=== PATIENT | male | born 1975 | race Two or more races ===

== ENCOUNTER 2017-07-25 10:45 | Emergency (ER) | payer MEDICARE, OTHER ==
[~2017-07-25] VITALS: Ht 160 cm; Wt 63.5 kg
[2017-07-25 11:30] LABS: Basophils # (auto) 0.1 uL; Eosinophils # (auto) 0.1 uL; Eosinophils % (auto) 1.8 % (0.0-7.0); Hematocrit 40.4 % (41.0-53.0); Hemoglobin 13.2 g/dL (13.5-17.5); Lymphocytes # (auto) 0.5 uL; Lymphocytes % (auto) 9.8 % (10.0-50.0); Mean Corpuscular Hemoglobin 27.2 pg (28.0-32.0); Mean Corpuscular Hgb Conc. 32.7 g/dL (32.0-36.0); Mean Corpuscular Volume 83.2 fL (80.0-100.0); Monocytes # (auto) 0.9 uL; Neutrophils # (auto) 3.8 uL; Neutrophils % (auto) 71.4 % (37.0-80.0); Nucleated Red Blood Cells % 0.2 %; Platelet Count (auto) 336 10^3/uL (140-450); Red Blood Cells 4.85 10^6/uL (4.5-5.90); Red Cell Distribution Width 17.3 % (11.8-14.3); White Blood Cell 5.3 10^3/uL (4.4-10.8)
[2017-07-25 11:49] LABS: Albumin 4.6 g/dL (3.4-5.0); BUN/Creatinine Ratio 10.6; Bilirubin, Total 0.7 mg/dL (0.2-1.0); Calcium 9.4 mg/dL (8.5-10.1); Potassium 3.6 mmol/L (3.5-5.1)
[2017-07-25 12:59] LABS: Urine Bacteria NONE SEEN /hpf (None Seen); Urine Blood Negative /uL (Negative); Urine Mucus FEW (None Seen); Urine Specific Gravity 1.017 (1.001-1.035); Urine WBC 1 /hpf (0 - 3)
[2017-07-25] MEDS ORDERED: ONDANSETRON HCL 4 MG/2 ML VIAL IV ONE (16:45)
[2017-07-25] MEDS ORDERED: NALBUPHINE HCL 10 MG/1ml INJECTION IV ONE (16:45)
[2017-07-25 17:28] VITALS: BP 134/87
== END 2017-07-25 17:32 | disposition home or self-care (01) ==
LOC: ER 10:45
DX: E11.43 Type 2 diabetes mellitus with diabetic autonomic (poly)neuropathy (principal); K31.84 Gastroparesis; G89.29 Other chronic pain; R10.13 Epigastric pain; I25.2 Old myocardial infarction; Z86.73 Personal history of transient ischemic attack (TIA), and cerebral infarction without residual deficits; Z94.83 Pancreas transplant status
CPT/HCPCS: 36415; 71046; 74176; 80053; 81001; 82150; 83690; 84484; 85025; 93005; 96374; 96375; 99285; J2300; J2405

== ENCOUNTER 2017-08-04 19:14 | Emergency (ER) | payer MEDICARE, OTHER ==
[~2017-08-04] VITALS: Ht 160 cm; Wt 63.5 kg
[2017-08-04 21:13] LABS: Hematocrit 40.8 % (41.0-53.0); Hemoglobin 13.2 g/dL (13.5-17.5); Mean Corpuscular Hgb Conc. 32.4 g/dL (32.0-36.0); Mean Corpuscular Volume 83.3 fL (80.0-100.0); Platelet Count (auto) 346 10^3/uL (140-450); Red Blood Cells 4.89 10^6/uL (4.5-5.90); Red Cell Distribution Width 16.1 % (11.8-14.3); White Blood Cell 4.6 10^3/uL (4.4-10.8)
[2017-08-04 21:16] LABS: Basophils % (manual) 0 (0.0-2.0); Blast Cells 0; Metamyelocytes % 0; Myelocytes % 0; Promyelocytes % 0; Reactive Lymphocytes 0
[2017-08-04 21:34] LABS: Albumin 4.2 g/dL (3.4-5.0); BUN/Creatinine Ratio 9.3; Bilirubin, Total 0.3 mg/dL (0.2-1.0); Calcium 9.2 mg/dL (8.5-10.1); Potassium 4.2 mmol/L (3.5-5.1); Total Protein 7.7 g/dL (6.4-8.2)
[2017-08-04 22:44] LABS: INR 0.97 (0.9-1.15); Partial Thromboplastin Time 26.6 sec (22.64-33.71); Prothrombin Time 10.6 sec (9.37-12.3)
[2017-08-04 23:08] LABS: Band Neutrophils % (manual) 5; Eosinophils % (manual) 5 (0-7); Lymphocytes % (manual) 3 (10.0-50.0); Monocytes % (manual) 29 (0-12)
[2017-08-05] MEDS ORDERED: ALBUTEROL SULF 2.5 MG/0.5ML(0.5%) NEB SOLN NEB ONE (02:45)
[2017-08-05] MEDS ORDERED: IPRATROPIUM BROM 0.5 MG/2.5ML INH SOL NEB ONE (02:45)
[2017-08-05] MEDS ORDERED: methylPREDNISolone SOD SUCC 125 MG/2 ML VL ONE (02:55)
[2017-08-05] MEDS ORDERED: methylPREDNISolone SOD SUCC 125 MG/2 ML VL IV ONE (03:00)
[2017-08-05 03:12] VITALS: BP 141/84
[2017-08-05] MEDS ORDERED: cefTRIAXone 1GM/10ml IVPUSH 10 ML IV ONE ×2 (05:12→05:15)
== END 2017-08-05 05:38 | disposition home or self-care (01) ==
LOC: ER 19:14
DX: J45.909 Unspecified asthma, uncomplicated (principal); R53.1 Weakness; I25.2 Old myocardial infarction; Z86.73 Personal history of transient ischemic attack (TIA), and cerebral infarction without residual deficits
CPT/HCPCS: 36415; 71046; 80053; 85007; 85027; 85610; 85730; 87804; 94640; 96374; 96375; 99285; J2930; 87400

== ENCOUNTER 2017-08-11 02:09 | Inpatient (IN) | payer MEDICARE ==
[~2017-08-11] VITALS: Ht 160 cm; Wt 65.0 kg
[2017-08-11 03:02] LABS: Basophils # (auto) 0.1 uL; Basophils % (auto) 0.9 % (0.0-2.0); Eosinophils # (auto) 0.1 uL; Eosinophils % (auto) 0.7 % (0.0-7.0); Hematocrit 38.7 % (41.0-53.0); Hemoglobin 12.5 g/dL (13.5-17.5); Lymphocytes # (auto) 0.7 uL; Lymphocytes % (auto) 5.8 % (10.0-50.0); Mean Corpuscular Hemoglobin 26.5 pg (28.0-32.0); Mean Corpuscular Hgb Conc. 32.3 g/dL (32.0-36.0); Mean Corpuscular Volume 82.1 fL (80.0-100.0); Monocytes % (auto) 8.2 % (0.0-12.0); Neutrophils % (auto) 84.4 % (37.0-80.0); Nucleated Red Blood Cells % 0.1 %; Platelet Count (auto) 343 10^3/uL (140-450); Red Blood Cells 4.72 10^6/uL (4.5-5.90); Red Cell Distribution Width 16.1 % (11.8-14.3); White Blood Cell 11.9 10^3/uL (4.4-10.8)
[2017-08-11] MEDS ORDERED: ALBUTEROL SULF 2.5 MG/0.5ML(0.5%) NEB SOLN NEB ONE (03:15)
[2017-08-11] MEDS ORDERED: IPRATROPIUM BROM 0.5 MG/2.5ML INH SOL NEB ONE (03:15)
[2017-08-11 03:18] LABS: Alanine Aminotransferase 29 U/L (16-61); Albumin 3.4 g/dL (3.4-5.0); Anion Gap 10 (5-15); Aspartate Aminotransferase 34 U/L (15-37); BUN/Creatinine Ratio 16.7; Blood Urea Nitrogen 24 mg/dL (7-18); Calcium 8.5 mg/dL (8.5-10.1); Carbon Dioxide 23 mmol/L (21-32); Chloride 108 mmol/L (98-107); GFR African American 70 mL/min; GFR Non-African American 58 mL/min; Glucose 163 mg/dL (74-106); Sodium 141 mmol/L (136-145)
[2017-08-11 03:23] LABS: Alkaline Phosphatase 70 U/L (45-117); Bilirubin, Total 0.2 mg/dL (0.2-1.0); Total Protein 6.5 g/dL (6.4-8.2)
[2017-08-11] MEDS ORDERED: methylPREDNISolone SOD SUCC 125 MG/2 ML VL IV ONE (07:15)
[2017-08-11] MEDS ORDERED: LORazepam 0.5 MG TAB PO ONE (07:45)
[2017-08-11 08:04] LABS: Urine Bacteria NONE SEEN /hpf (None Seen); Urine Blood Negative /uL (Negative); Urine Specific Gravity 1.017 (1.001-1.035); Urine WBC <1 /hpf (0 - 3)
[2017-08-11 08:24] LABS: Alcohol, Urine < 3.0 mg/dL (0-5); Amphetamine Screen, Urine NEGATIVE (NEGATIVE); Barbiturate Scree,Urine NEGATIVE (NEGATIVE); Benzodiazephine Screen, Urine NEGATIVE (NEGATIVE); Cannabinoid Screen, Urine POSITIVE (NEGATIVE); Cocaine Screen, Urine NEGATIVE (NEGATIVE); Opiate Scree,Urine NEGATIVE (NEGATIVE); Phencyclidine Screen, Urine NEGATIVE (NEGATIVE)
[2017-08-11] MEDS ORDERED: [UNRECOGNIZED DRUG - REMARK] PO SCH (09:41)
[2017-08-11] MEDS ORDERED: cefTRIAXone 1GM/10ml IVPUSH 10 ML IV ONE (09:45)
[2017-08-11] MEDS ORDERED: SODIUM CHLORIDE 0.9% 1,000 ML IV SCH (09:45)
[2017-08-11] MEDS ORDERED: PRAV20TA3 PO (09:58)
[2017-08-11] MEDS ORDERED: ALPR1TAB2 PO (09:58)
[2017-08-11] MEDS ORDERED: FLUT50SP28 (09:58)
[2017-08-11] MEDS ORDERED: PRE5T PO (09:58)
[2017-08-11] MEDS ORDERED: GEMF600T3 PO (09:58)
[2017-08-11] MEDS ORDERED: PRO10T GT (09:58)
[2017-08-11] MEDS ORDERED: BELLELX2 GT (09:58)
[2017-08-11] MEDS ORDERED: MONT5CHW17 PO (09:58)
[2017-08-11] MEDS ORDERED: TACR0.5C3 PO (09:58)
[2017-08-11] MEDS ORDERED: PANT40TA2 PO (09:58)
[2017-08-11] MEDS ORDERED: MET10LQ PO (09:58)
[2017-08-11] MEDS ORDERED: ASPI-231 PO (09:58)
[2017-08-11] MEDS ORDERED: FLUC200T50 PO (09:58)
[2017-08-11] MEDS ORDERED: NITR0.4S29 SL (09:58)
[2017-08-11] MEDS ORDERED: ONDA8TAB6 SL (09:58)
[2017-08-11] MEDS ORDERED: SIRO1POW XX (09:58)
[2017-08-11] MEDS ORDERED: CLID5CAP PO (09:58)
[2017-08-11] MEDS ORDERED: FEXO-42 PO (09:58)
[2017-08-11] MEDS ORDERED: TACR1CAP4 PO (09:58)
[2017-08-11] MEDS ORDERED: [UNRECOGNIZED DRUG - CODE] PO (09:58)
[2017-08-11] MEDS ORDERED: QUET50TA PO (09:58)
[2017-08-11] MEDS ORDERED: MIRT15TA3 PO (09:58)
[2017-08-11] MEDS ORDERED: PRO20T PO (09:58)
[2017-08-11] MEDS ORDERED: ALBUAER3 IN (09:58)
[2017-08-11] MEDS ORDERED: FINA5TAB4 PO (09:58)
[2017-08-11] MEDS ORDERED: TAM04C PO (09:58)
[2017-08-11] MEDS ORDERED: GABAPENTIN ENACARBIL 600 MG PO SCH (10:00)
[2017-08-11] MEDS ORDERED: PATIENTS OWN MEDICATION (Montelukast Sodium (Singulair) 10 MG) PO SCH (10:00)
[2017-08-11] MEDS: AZITHROMYCIN 500MG/ 250ML 250 ML IV SCH (10:00)
[2017-08-11 10:44] LABS: Cholesterol 215 mg/dL (< 200); HDL Cholesterol 97 mg/dL (40-59); LDL Cholesterol 90 mg/dL (< 100); Triglycerides 182 mg/dL (< 150)
[2017-08-11] MEDS: FINASTERIDE 5 MG TAB PO SCH (11:22)
[2017-08-11] MEDS: PANTOPRAZOLE 40 MG TAB PO SCH ×2 (11:24→21:17)
[2017-08-11] MEDS: MONTELUKAST SODIUM 10 MG TAB PO SCH (11:24)
[2017-08-11] MEDS: GEMFIBROZIL 600 MG TAB PO SCH ×2 (11:24→21:17)
[2017-08-11] MEDS: PROPRANOLOL HCL 20 MG TAB PO SCH ×2 (11:24→21:22)
[2017-08-11] MEDS: TAMSULOSIN HYDROCHLORIDE 0.4 MG CAP PO SCH (11:24)
[2017-08-11] MEDS: ASPirin-EC 81 mg tab PO SCH (11:25)
[2017-08-11] MEDS: predniSONE 5 MG TAB PO SCH (11:25)
[2017-08-11] MEDS: GABAPENTIN 300 MG CAP PO SCH ×2 (11:25→21:16)
[2017-08-11] MEDS: TACROLIMUS 0.5 MG CAP PO SCH (11:41)
[2017-08-11] MEDS ORDERED: guaiFENesin-COD 10 ML UD PO PRN (11:45)
[2017-08-11] MEDS: BUDESONIDE (INHALATION) 0.5 MG/2 ML NEB NEB SCH ×2 (12:06→20:15)
[2017-08-11] MEDS: ALBUTEROL SULF 2.5 MG/0.5ML(0.5%) NEB SOLN NEB SCH ×2 (12:08→20:14)
[2017-08-11 12:11] VITALS: BP 161/96
[2017-08-11] MEDS: HYDROcodone-ACET 5/325MG TAB PO PRN ×2 (12:37→19:57)
[2017-08-11] MEDS ORDERED: ONDANSETRON HCL 4 MG/2 ML VIAL ONE (13:42)
[2017-08-11] MEDS: ONDANSETRON HCL 4 MG/2 ML VIAL IV PRN (13:45)
[2017-08-11] MEDS ORDERED: PATIENTS OWN MEDICATION (Alprazolam (Xanax) 1 TAB) PO SCH (14:00)
[2017-08-11] MEDS: ALPRAZolam 0.5 MG TAB PO SCH ×2 (14:29→21:17)
[2017-08-11] MEDS: TACROLIMUS 1 MG CAP PO SCH (21:15)
[2017-08-11] MEDS: traZODone HCL 50 MG TAB PO SCH (21:16)
[2017-08-11] MEDS: PRAVASTATIN SODIUM 20 MG TAB PO SCH (21:16)
[2017-08-11] MEDS: FEXOFENADINE HCL 60 MG TAB PO SCH (21:17)
[2017-08-11] MEDS: guaiFENesin-CODEINE LIQUID 5 ML UD PO PRN (21:18)
[2017-08-12] MEDS: ALBUTEROL SULF 2.5 MG/0.5ML(0.5%) NEB SOLN NEB SCH ×4 (00:07→20:07)
[2017-08-12 05:53] VITALS: BP 98/69
[2017-08-12 06:00] LABS: Hematocrit 36.7 % (41.0-53.0); Red Blood Cells 4.48 10^6/uL (4.5-5.90)
[2017-08-12] MEDS: ALPRAZolam 0.5 MG TAB PO SCH ×3 (06:00→21:54)
[2017-08-12 06:06] LABS: Mean Corpuscular Hemoglobin 26.7 pg (28.0-32.0); Mean Corpuscular Hgb Conc. 32.6 g/dL (32.0-36.0); Platelet Count (auto) 306 10^3/uL (140-450); Red Cell Distribution Width 16.3 % (11.8-14.3); White Blood Cell 14.7 10^3/uL (4.4-10.8)
[2017-08-12 06:16] LABS: Basophils % (manual) 0 (0.0-2.0); Blast Cells 0; Eosinophils % (manual) 0 (0-7); Metamyelocytes % 0; Myelocytes % 0; Promyelocytes % 0; Reactive Lymphocytes 0
[2017-08-12 06:28] LABS: Albumin 2.8 g/dL (3.4-5.0); BUN/Creatinine Ratio 20.2; Bilirubin, Total 0.3 mg/dL (0.2-1.0); Calcium 8.4 mg/dL (8.5-10.1); Potassium 4.3 mmol/L (3.5-5.1); Total Protein 5.7 g/dL (6.4-8.2)
[2017-08-12] MEDS: BUDESONIDE (INHALATION) 0.5 MG/2 ML NEB NEB SCH ×2 (06:47→20:08)
[2017-08-12 06:48] LABS: Band Neutrophils % (manual) 6; Lymphocytes % (manual) 2 (10.0-50.0); Monocytes % (manual) 6 (0-12)
[2017-08-12] MEDS: HYDROcodone-ACET 5/325MG TAB PO PRN ×2 (08:28→16:35)
[2017-08-12] MEDS: guaiFENesin-CODEINE LIQUID 5 ML UD PO PRN ×3 (08:29→21:55)
[2017-08-12 09:00] VITALS: BP 116/71
[2017-08-12] MEDS: TACROLIMUS 0.5 MG CAP PO SCH (10:00)
[2017-08-12] MEDS: AZITHROMYCIN 500MG/ 250ML 250 ML IV SCH (10:01)
[2017-08-12] MEDS: cefTRIAXone 1GM/10ml IVPUSH 10 ML IV SCH (10:01)
[2017-08-12] MEDS: predniSONE 5 MG TAB PO SCH (10:02)
[2017-08-12] MEDS: FEXOFENADINE HCL 60 MG TAB PO SCH ×2 (10:02→21:54)
[2017-08-12] MEDS: ASPirin-EC 81 mg tab PO SCH (10:03)
[2017-08-12] MEDS: TAMSULOSIN HYDROCHLORIDE 0.4 MG CAP PO SCH (10:03)
[2017-08-12] MEDS: PROPRANOLOL HCL 20 MG TAB PO SCH ×2 (10:04→21:54)
[2017-08-12] MEDS: GABAPENTIN 300 MG CAP PO SCH ×2 (10:04→21:54)
[2017-08-12] MEDS: GEMFIBROZIL 600 MG TAB PO SCH ×2 (10:04→21:54)
[2017-08-12] MEDS: FINASTERIDE 5 MG TAB PO SCH (10:05)
[2017-08-12] MEDS: PANTOPRAZOLE 40 MG TAB PO SCH ×2 (10:05→22:12)
[2017-08-12] MEDS: MONTELUKAST SODIUM 10 MG TAB PO SCH (10:05)
[2017-08-12] MEDS ORDERED: methylPREDNISolone SOD SUCC 40 MG/ML VL IV ONE (12:15)
[2017-08-12 13:00] VITALS: BP 112/69
[2017-08-12 17:00] VITALS: BP 109/68
[2017-08-12 21:22] VITALS: BP 115/75
[2017-08-12] MEDS: PRAVASTATIN SODIUM 20 MG TAB PO SCH (21:54)
[2017-08-12] MEDS: traZODone HCL 50 MG TAB PO SCH (21:54)
[2017-08-12] MEDS: methylPREDNISolone SOD SUCC 40 MG/ML VL IV SCH (21:55)
[2017-08-12] MEDS: TACROLIMUS 1 MG CAP PO SCH (22:12)
[2017-08-13] MEDS: ALBUTEROL SULF 2.5 MG/0.5ML(0.5%) NEB SOLN NEB SCH ×4 (00:53→19:51)
[2017-08-13 05:12] VITALS: BP 118/72
[2017-08-13] MEDS: ALPRAZolam 0.5 MG TAB PO SCH ×3 (05:52→21:38)
[2017-08-13] MEDS: BUDESONIDE (INHALATION) 0.5 MG/2 ML NEB NEB SCH ×2 (07:30→19:51)
[2017-08-13] MEDS: HYDROcodone-ACET 5/325MG TAB PO PRN (07:58)
[2017-08-13] MEDS: guaiFENesin-CODEINE LIQUID 5 ML UD PO PRN (07:59)
[2017-08-13 09:00] VITALS: BP 121/79
[2017-08-13] MEDS: cefTRIAXone 1GM/10ml IVPUSH 10 ML IV SCH (10:06)
[2017-08-13] MEDS: methylPREDNISolone SOD SUCC 40 MG/ML VL IV SCH ×2 (10:07→21:37)
[2017-08-13] MEDS: AZITHROMYCIN 500MG/ 250ML 250 ML IV SCH (10:07)
[2017-08-13] MEDS: GEMFIBROZIL 600 MG TAB PO SCH ×2 (10:09→21:37)
[2017-08-13] MEDS: TACROLIMUS 0.5 MG CAP PO SCH (10:09)
[2017-08-13] MEDS: FINASTERIDE 5 MG TAB PO SCH (10:09)
[2017-08-13] MEDS: GABAPENTIN 300 MG CAP PO SCH ×2 (10:09→21:37)
[2017-08-13] MEDS: PROPRANOLOL HCL 20 MG TAB PO SCH ×2 (10:09→21:37)
[2017-08-13] MEDS: TAMSULOSIN HYDROCHLORIDE 0.4 MG CAP PO SCH (10:09)
[2017-08-13] MEDS: MONTELUKAST SODIUM 10 MG TAB PO SCH (10:09)
[2017-08-13] MEDS: ASPirin-EC 81 mg tab PO SCH (10:10)
[2017-08-13] MEDS: FEXOFENADINE HCL 60 MG TAB PO SCH ×2 (10:10→21:37)
[2017-08-13] MEDS: PANTOPRAZOLE 40 MG TAB PO SCH ×2 (10:10→21:38)
[2017-08-13] MEDS: ONDANSETRON HCL 4 MG/2 ML VIAL IV PRN ×3 (10:35→21:54)
[2017-08-13] MEDS: MORPHINE SULFATE 4 MG/ML SYR/VIAL IV PRN ×3 (10:36→21:55)
[2017-08-13 13:00] VITALS: BP 125/73
[2017-08-13 16:59] VITALS: BP 119/76
[2017-08-13] MEDS: guaiFENesin 200 MG/10 ML UD PO PRN (17:53)
[2017-08-13] MEDS: traZODone HCL 50 MG TAB PO SCH (21:37)
[2017-08-13] MEDS: TACROLIMUS 1 MG CAP PO SCH (21:38)
[2017-08-13] MEDS: PRAVASTATIN SODIUM 20 MG TAB PO SCH (21:38)
[2017-08-13 22:00] VITALS: BP 121/78
[2017-08-14] MEDS: ALBUTEROL SULF 2.5 MG/0.5ML(0.5%) NEB SOLN NEB SCH ×4 (01:05→18:45)
[2017-08-14 05:28] VITALS: BP 125/81
[2017-08-14] MEDS: ALPRAZolam 0.5 MG TAB PO SCH ×3 (05:53→22:11)
[2017-08-14] MEDS: BUDESONIDE (INHALATION) 0.5 MG/2 ML NEB NEB SCH ×2 (07:08→18:45)
[2017-08-14] MEDS: guaiFENesin 200 MG/10 ML UD PO PRN ×2 (08:49→16:16)
[2017-08-14] MEDS: cefTRIAXone 1GM/10ml IVPUSH 10 ML IV SCH (08:50)
[2017-08-14] MEDS: ONDANSETRON HCL 4 MG/2 ML VIAL IV PRN ×2 (08:56→16:27)
[2017-08-14] MEDS: MORPHINE SULFATE 4 MG/ML SYR/VIAL IV PRN ×3 (08:56→22:56)
[2017-08-14 09:00] VITALS: BP 123/78
[2017-08-14] MEDS ORDERED: AZITHROMYCIN 250 MG TAB PO SCH (10:00)
[2017-08-14] MEDS ORDERED: FUROSEMIDE 20 MG/2 ML VIAL IV ONE (11:00)
[2017-08-14] MEDS ORDERED: POTASSIUM CHL 20 Meq TABLET PO ONE (11:00)
[2017-08-14] MEDS ORDERED: FLUCONAZOLE 100 MG TAB PO ONE (11:00)
[2017-08-14 11:06] VITALS: BP 123/78
[2017-08-14] MEDS: methylPREDNISolone SOD SUCC 40 MG/ML VL IV SCH ×2 (11:50→22:13)
[2017-08-14] MEDS: PROPRANOLOL HCL 20 MG TAB PO SCH ×2 (11:54→22:12)
[2017-08-14] MEDS: FINASTERIDE 5 MG TAB PO SCH (11:55)
[2017-08-14] MEDS: MONTELUKAST SODIUM 10 MG TAB PO SCH (11:55)
[2017-08-14] MEDS: TAMSULOSIN HYDROCHLORIDE 0.4 MG CAP PO SCH (11:55)
[2017-08-14] MEDS: GEMFIBROZIL 600 MG TAB PO SCH ×2 (11:55→22:11)
[2017-08-14] MEDS: ASPirin-EC 81 mg tab PO SCH (11:55)
[2017-08-14] MEDS: FEXOFENADINE HCL 60 MG TAB PO SCH ×2 (11:55→22:11)
[2017-08-14] MEDS: PANTOPRAZOLE 40 MG TAB PO SCH ×2 (11:56→22:12)
[2017-08-14] MEDS: FLUCONAZOLE 100 MG TAB PO SCH (11:56)
[2017-08-14] MEDS: GABAPENTIN 300 MG CAP PO SCH ×2 (11:56→22:11)
[2017-08-14] MEDS: DOXYCYCLINE HYC 100MG/250ML 250 ML IV SCH (12:00)
[2017-08-14] MEDS: TACROLIMUS 0.5 MG CAP PO SCH (12:01)
[2017-08-14 13:00] VITALS: BP 121/72
[2017-08-14 17:00] VITALS: BP 118/80
[2017-08-14] MEDS: PRAVASTATIN SODIUM 20 MG TAB PO SCH (22:12)
[2017-08-14] MEDS: TACROLIMUS 1 MG CAP PO SCH (22:13)
[2017-08-14] MEDS: traZODone HCL 50 MG TAB PO SCH (22:14)
[2017-08-14 22:19] VITALS: BP 115/81
[2017-08-15] MEDS: DOXYCYCLINE HYC 100MG/250ML 250 ML IV SCH ×3 (00:18→23:17)
[2017-08-15] MEDS: ALBUTEROL SULF 2.5 MG/0.5ML(0.5%) NEB SOLN NEB SCH ×4 (00:42→18:41)
[2017-08-15 05:21] VITALS: BP 111/78
[2017-08-15] MEDS: ALPRAZolam 0.5 MG TAB PO SCH ×3 (05:59→21:25)
[2017-08-15] MEDS: BUDESONIDE (INHALATION) 0.5 MG/2 ML NEB NEB SCH ×2 (06:42→22:37)
[2017-08-15 07:05] LABS: Hemoglobin 13.2 g/dL (13.5-17.5); White Blood Cell 14.4 10^3/uL (4.4-10.8)
[2017-08-15 07:11] LABS: Mean Corpuscular Hemoglobin 26.7 pg (28.0-32.0); Mean Corpuscular Hgb Conc. 32.1 g/dL (32.0-36.0); Mean Corpuscular Volume 83.1 fL (80.0-100.0); Platelet Count (auto) 328 10^3/uL (140-450); Red Blood Cells 4.94 10^6/uL (4.5-5.90); Red Cell Distribution Width 15.6 % (11.8-14.3)
[2017-08-15 07:24] LABS: Basophils % (manual) 0 (0.0-2.0); Blast Cells 0; Eosinophils % (manual) 0 (0-7); Metamyelocytes % 0; Myelocytes % 0; Promyelocytes % 0; Reactive Lymphocytes 0
[2017-08-15 07:46] LABS: BUN/Creatinine Ratio 22.7; Calcium 8.1 mg/dL (8.5-10.1); Potassium 4.4 mmol/L (3.5-5.1)
[2017-08-15 08:23] VITALS: BP 102/65
[2017-08-15 09:09] LABS: Band Neutrophils % (manual) 2; Lymphocytes % (manual) 1 (10.0-50.0); Monocytes % (manual) 4 (0-12)
[2017-08-15] MEDS ORDERED: POTASSIUM CHL 20 Meq TABLET PO ONE (11:30)
[2017-08-15] MEDS ORDERED: FUROSEMIDE 20 MG/2 ML VIAL IV ONE (11:30)
[2017-08-15] MEDS: GEMFIBROZIL 600 MG TAB PO SCH ×2 (11:36→21:24)
[2017-08-15] MEDS: FEXOFENADINE HCL 60 MG TAB PO SCH ×2 (11:36→21:23)
[2017-08-15] MEDS: guaiFENesin 200 MG/10 ML UD PO PRN ×2 (11:36→18:07)
[2017-08-15] MEDS: TAMSULOSIN HYDROCHLORIDE 0.4 MG CAP PO SCH (11:38)
[2017-08-15] MEDS: FLUCONAZOLE 100 MG TAB PO SCH (11:38)
[2017-08-15] MEDS: FINASTERIDE 5 MG TAB PO SCH (11:39)
[2017-08-15] MEDS: ASPirin-EC 81 mg tab PO SCH (11:39)
[2017-08-15] MEDS: PROPRANOLOL HCL 20 MG TAB PO SCH ×2 (11:40→21:24)
[2017-08-15] MEDS: PANTOPRAZOLE 40 MG TAB PO SCH ×2 (11:40→21:25)
[2017-08-15] MEDS: MONTELUKAST SODIUM 10 MG TAB PO SCH (11:41)
[2017-08-15] MEDS: TACROLIMUS 0.5 MG CAP PO SCH (11:42)
[2017-08-15] MEDS: GABAPENTIN 300 MG CAP PO SCH ×2 (11:42→21:24)
[2017-08-15] MEDS: MORPHINE SULFATE 4 MG/ML SYR/VIAL IV PRN ×2 (11:51→18:19)
[2017-08-15 12:48] VITALS: BP 124/81
[2017-08-15 17:12] VITALS: BP 118/77
[2017-08-15] MEDS: traZODone HCL 50 MG TAB PO SCH (21:23)
[2017-08-15] MEDS: PRAVASTATIN SODIUM 20 MG TAB PO SCH (21:24)
[2017-08-15 21:30] VITALS: BP 116/80
[2017-08-15] MEDS: TACROLIMUS 1 MG CAP PO SCH (21:31)
[2017-08-16] MEDS: ALBUTEROL SULF 2.5 MG/0.5ML(0.5%) NEB SOLN NEB SCH ×5 (00:40→21:59)
[2017-08-16 05:00] VITALS: BP 105/50
[2017-08-16] MEDS: ALPRAZolam 0.5 MG TAB PO SCH ×3 (06:16→21:42)
[2017-08-16] MEDS: BUDESONIDE (INHALATION) 0.5 MG/2 ML NEB NEB SCH ×2 (07:14→17:54)
[2017-08-16 08:15] VITALS: BP 126/68
[2017-08-16] MEDS: FINASTERIDE 5 MG TAB PO SCH (11:07)
[2017-08-16] MEDS: FLUCONAZOLE 100 MG TAB PO SCH (11:10)
[2017-08-16] MEDS: PANTOPRAZOLE 40 MG TAB PO SCH ×2 (11:10→21:42)
[2017-08-16] MEDS: predniSONE 20 MG TAB PO SCH (11:11)
[2017-08-16] MEDS: FEXOFENADINE HCL 60 MG TAB PO SCH ×2 (11:12→21:40)
[2017-08-16] MEDS: ASPirin-EC 81 mg tab PO SCH (11:12)
[2017-08-16] MEDS: TACROLIMUS 0.5 MG CAP PO SCH (11:12)
[2017-08-16] MEDS: GABAPENTIN 300 MG CAP PO SCH ×2 (11:13→21:41)
[2017-08-16] MEDS: MONTELUKAST SODIUM 10 MG TAB PO SCH (11:13)
[2017-08-16] MEDS: GEMFIBROZIL 600 MG TAB PO SCH ×2 (11:14→21:41)
[2017-08-16] MEDS: TAMSULOSIN HYDROCHLORIDE 0.4 MG CAP PO SCH (11:14)
[2017-08-16] MEDS: PROPRANOLOL HCL 20 MG TAB PO SCH ×2 (11:15→21:41)
[2017-08-16] MEDS: guaiFENesin 200 MG/10 ML UD PO PRN ×2 (11:15→22:01)
[2017-08-16] MEDS: MORPHINE SULFATE 4 MG/ML SYR/VIAL IV PRN ×3 (11:17→23:49)
[2017-08-16] MEDS: DOXYCYCLINE HYC 100MG/250ML 250 ML IV SCH (11:40)
[2017-08-16 12:17] VITALS: BP 138/76
[2017-08-16] MEDS ORDERED: methylPREDNISolone SOD SUCC 125 MG/2 ML VL IV ONE ×2 (14:45→22:00)
[2017-08-16 17:11] VITALS: BP 115/68
[2017-08-16] MEDS: traZODone HCL 50 MG TAB PO SCH (21:40)
[2017-08-16] MEDS: PRAVASTATIN SODIUM 20 MG TAB PO SCH (21:41)
[2017-08-16] MEDS: TACROLIMUS 1 MG CAP PO SCH (21:41)
[2017-08-16 22:00] VITALS: BP 120/86
[2017-08-17] MEDS: ALBUTEROL SULF 2.5 MG/0.5ML(0.5%) NEB SOLN NEB SCH ×4 (02:04→13:45)
[2017-08-17 05:00] VITALS: BP 119/77
[2017-08-17] MEDS: ALPRAZolam 0.5 MG TAB PO SCH ×2 (05:54→14:01)
[2017-08-17 09:00] VITALS: BP 119/75
[2017-08-17] MEDS: ASPirin-EC 81 mg tab PO SCH (09:30)
[2017-08-17] MEDS: GABAPENTIN 300 MG CAP PO SCH (09:30)
[2017-08-17] MEDS: TAMSULOSIN HYDROCHLORIDE 0.4 MG CAP PO SCH (09:31)
[2017-08-17] MEDS: PROPRANOLOL HCL 20 MG TAB PO SCH (09:31)
[2017-08-17] MEDS: predniSONE 20 MG TAB PO SCH (09:31)
[2017-08-17] MEDS: PANTOPRAZOLE 40 MG TAB PO SCH (09:31)
[2017-08-17] MEDS: FINASTERIDE 5 MG TAB PO SCH (09:31)
[2017-08-17] MEDS: MONTELUKAST SODIUM 10 MG TAB PO SCH (09:32)
[2017-08-17] MEDS: TACROLIMUS 0.5 MG CAP PO SCH (09:32)
[2017-08-17] MEDS: guaiFENesin-CODEINE LIQUID 5 ML UD PO PRN (09:32)
[2017-08-17] MEDS: GEMFIBROZIL 600 MG TAB PO SCH (09:32)
[2017-08-17] MEDS: FEXOFENADINE HCL 60 MG TAB PO SCH (09:32)
[2017-08-17] MEDS: FLUCONAZOLE 100 MG TAB PO SCH (09:32)
[2017-08-17] MEDS: BUDESONIDE (INHALATION) 0.5 MG/2 ML NEB NEB SCH (10:21)
[2017-08-17] MEDS: HYDROcodone-ACET 5/325MG TAB PO PRN (11:48)
[2017-08-17] MEDS: DOXYCYCLINE HYC 100MG/250ML 250 ML IV SCH ×2 (12:04)
[2017-08-17 13:00] VITALS: BP 133/85
[2017-08-17 14:09] VITALS: BP 133/85
[2017-08-17 15:28] VITALS: BP 133/85
[2017-08-17 17:00] VITALS: BP 102/70
== END 2017-08-17 17:00 | disposition home or self-care (01) | DRG 682 ==
LOC: EDBD 02:09 → ER 02:13 → OVERFLOW 02:14 → WEST WING 18:39
PROVIDERS: ADMIT Internal Medicine; ATTEND Internal Medicine
DX: N17.9 Acute kidney failure, unspecified (principal); J18.9 Pneumonia, unspecified organism; J96.01 Acute respiratory failure with hypoxia; Z94.83 Pancreas transplant status; J45.901 Unspecified asthma with (acute) exacerbation; N18.3 Chronic kidney disease, stage 3 (moderate); K21.9 Gastro-esophageal reflux disease without esophagitis; N40.0 Benign prostatic hyperplasia without lower urinary tract symptoms; E11.9 Type 2 diabetes mellitus without complications; E78.00 Pure hypercholesterolemia, unspecified; E78.5 Hyperlipidemia, unspecified; F41.9 Anxiety disorder, unspecified; G47.00 Insomnia, unspecified; I13.10 Hypertensive heart and chronic kidney disease without heart failure, with stage 1 through stage 4 chronic kidney disease, or unspecified chronic kidney disease; I25.10 Atherosclerotic heart disease of native coronary artery without angina pectoris; Z79.82 Long term (current) use of aspirin; Z79.899 Other long term (current) drug therapy; Z86.73 Personal history of transient ischemic attack (TIA), and cerebral infarction without residual deficits; Z87.440 Personal history of urinary (tract) infections; Z95.5 Presence of coronary angioplasty implant and graft; Z71.3 Dietary counseling and surveillance; I25.2 Old myocardial infarction
CPT/HCPCS: 36415; 36600; 71045; 71046; 80048; 80053; 80061; 80307; 81001; 82805; 83036; 83735; 84484; 85007; 85025; 85027; 87804; 93005; 93306; 94640; 96365; 96375; J2405; J3490; J7507

== ENCOUNTER 2017-08-19 14:37 | Inpatient (IN) | payer MEDICARE ==
[~2017-08-19] VITALS: Ht 160 cm; Wt 64.8 kg
[~2017-08-19 14:37] MED LIST: ALBUAER3 IN; ALPR1TAB2 PO; ASPI-231 PO; BELLELX2 GT; CLID5CAP PO; FEXO-42 PO; FINA5TAB4 PO; FLUC200T50 PO; FLUT50SP28; GEMF600T3 PO; MET10LQ PO; MIRT15TA3 PO; MONT5CHW17 PO; NITR0.4S29 SL; ONDA8TAB6 SL; PANT40TA2 PO; PRAV20TA3 PO; PRE5T PO; PRO10T GT; PRO20T PO; QUET50TA PO; SIRO1POW XX; TACR0.5C3 PO; TACR1CAP4 PO; TAM04C PO; [UNRECOGNIZED DRUG - CODE] PO
[2017-08-19 15:22] LABS: Basophils # (auto) 0.2 uL; Hemoglobin 13.8 g/dL (13.5-17.5); Nucleated Red Blood Cells % 0.2 %
[2017-08-19 15:24] LABS: Basophils % (auto) 1.4 % (0.0-2.0); Eosinophils # (auto) 0.1 uL; Eosinophils % (auto) 0.5 % (0.0-7.0); Hematocrit 42.9 % (41.0-53.0); Lymphocytes # (auto) 0.4 uL; Lymphocytes % (auto) 3.5 % (10.0-50.0); Mean Corpuscular Hemoglobin 26.8 pg (28.0-32.0); Mean Corpuscular Hgb Conc. 32.2 g/dL (32.0-36.0); Mean Corpuscular Volume 83.3 fL (80.0-100.0); Monocytes % (auto) 16.5 % (0.0-12.0); Neutrophils # (auto) 9.4 uL; Neutrophils % (auto) 78.1 % (37.0-80.0); Platelet Count (auto) 299 10^3/uL (140-450); Red Blood Cells 5.15 10^6/uL (4.5-5.90); Red Cell Distribution Width 16.5 % (11.8-14.3); White Blood Cell 12.1 10^3/uL (4.4-10.8)
[2017-08-19 15:42] LABS: Alanine Aminotransferase 41 U/L (16-61); Albumin 3.1 g/dL (3.4-5.0); Alkaline Phosphatase 80 U/L (45-117); Anion Gap 10 (5-15); Aspartate Aminotransferase 35 U/L (15-37); BUN/Creatinine Ratio 23.7; Bilirubin, Total 0.3 mg/dL (0.2-1.0); Blood Urea Nitrogen 28 mg/dL (7-18); Calcium 8.5 mg/dL (8.5-10.1); Carbon Dioxide 26 mmol/L (21-32); Chloride 104 mmol/L (98-107); GFR African American 88 mL/min; GFR Non-African American 73 mL/min; Glucose 101 mg/dL (74-106); Potassium 4.5 mmol/L (3.5-5.1); Sodium 140 mmol/L (136-145); Total Protein 6.7 g/dL (6.4-8.2)
[2017-08-19 17:00] LABS: Lactic Acid w/Reflex 2.2 mmol/L (0.4-2.0)
[2017-08-19] MEDS ORDERED: IPRATROPIUM BROM 0.5 MG/2.5ML INH SOL HHN ONE (20:45)
[2017-08-19] MEDS ORDERED: methylPREDNISolone SOD SUCC 125 MG/2 ML VL IV ONE (20:45)
[2017-08-19] MEDS ORDERED: ALBUTEROL SULF 2.5 MG/0.5ML(0.5%) NEB SOLN HHN ONE (20:45)
[2017-08-19] MEDS ORDERED: cefTRIAXone 1GM/10ml IVPUSH 10 ML IV ONE (20:45)
[2017-08-19 22:00] VITALS: BP 152/80
[2017-08-19 22:46] LABS: Urine WBC None Seen /hpf (0 - 3)
[2017-08-19 23:05] LABS: Urine Bacteria NONE SEEN /hpf (None Seen); Urine Blood Negative /uL (Negative)
[2017-08-19 23:12] LABS: Alcohol, Urine < 3.0 mg/dL (0-5); Amphetamine Screen, Urine NEGATIVE (NEGATIVE); Barbiturate Scree,Urine NEGATIVE (NEGATIVE); Benzodiazephine Screen, Urine NEGATIVE (NEGATIVE); Cannabinoid Screen, Urine POSITIVE (NEGATIVE); Cocaine Screen, Urine NEGATIVE (NEGATIVE); Opiate Scree,Urine NEGATIVE (NEGATIVE); Phencyclidine Screen, Urine NEGATIVE (NEGATIVE)
[2017-08-19] MEDS ORDERED: ACETAMINOPHEN 325 MG TAB PO PRN (23:15)
[2017-08-19] MEDS ORDERED: MIRTAZAPINE 30 MG TAB PO ONE (23:15)
[2017-08-19] MEDS ORDERED: ONDANSETRON HCL 4 MG/2 ML VIAL IV PRN (23:15)
[2017-08-19] MEDS ORDERED: ALBUTEROL SULF 2.5 MG/0.5ML(0.5%) NEB SOLN NEB PRN (23:15)
[2017-08-19] MEDS ORDERED: ALPRAZolam 0.5 MG TAB PO PRN (23:15)
[2017-08-19] MEDS ORDERED: IPRATROPIUM BROM 0.5 MG/2.5ML INH SOL NEB PRN (23:15)
[2017-08-19 23:43] VITALS: BP 161/90
[2017-08-20] VITALS (7 sets, daily range): BP systolic 111–152; BP diastolic 71–86
[2017-08-20] MEDS ORDERED: SODIUM CHLORIDE 0.9% 500 ML IV ONE (00:15)
[2017-08-20] MEDS ORDERED: AZITHROMYCIN 500MG/ 250ML 250 ML IV ONE (00:15)
[2017-08-20] MEDS ORDERED: TRAZ100T2 PO (01:33)
[2017-08-20] MEDS: HYDROcodone-ACET 7.5/325MG TAB PO PRN ×2 (03:32→14:10)
[2017-08-20] MEDS: SODIUM CHLORIDE 0.9% 1,000 ML IV SCH ×2 (04:00→13:46)
[2017-08-20 05:50] LABS: Hemoglobin 12.1 g/dL (13.5-17.5); White Blood Cell 6.3 10^3/uL (4.4-10.8)
[2017-08-20 05:53] LABS: Hematocrit 37.2 % (41.0-53.0); Mean Corpuscular Hemoglobin 27.1 pg (28.0-32.0); Mean Corpuscular Hgb Conc. 32.6 g/dL (32.0-36.0); Platelet Count (auto) 243 10^3/uL (140-450); Red Blood Cells 4.48 10^6/uL (4.5-5.90); Red Cell Distribution Width 16.5 % (11.8-14.3)
[2017-08-20] MEDS: METOCLOPRAMIDE HCL 10 MG TAB PO SCH ×3 (05:58→22:02)
[2017-08-20 06:08] LABS: Basophils % (manual) 0 (0.0-2.0); Blast Cells 0; Eosinophils % (manual) 0 (0-7); Metamyelocytes % 0; Myelocytes % 0; Promyelocytes % 0; Reactive Lymphocytes 0
[2017-08-20 06:12] LABS: Albumin 2.5 g/dL (3.4-5.0); BUN/Creatinine Ratio 19.1; Calcium 7.8 mg/dL (8.5-10.1); Potassium 4.8 mmol/L (3.5-5.1)
[2017-08-20 06:15] LABS: Bilirubin, Total 0.2 mg/dL (0.2-1.0); Total Protein 5.4 g/dL (6.4-8.2)
[2017-08-20 07:00] LABS: Band Neutrophils % (manual) 1; Lymphocytes % (manual) 1 (10.0-50.0); Monocytes % (manual) 1 (0-12)
[2017-08-20] MEDS: cefTRIAXone 1GM/10ml IVPUSH 10 ML IV SCH (09:25)
[2017-08-20] MEDS: ENOXAPARIN SOD 40 MG/0.4 ML SYRINGE SC SCH ×2 (09:30→09:35)
[2017-08-20] MEDS: GEMFIBROZIL 600 MG TAB PO SCH ×2 (09:30→22:02)
[2017-08-20] MEDS: FAMOTIDINE 20 MG TAB PO SCH ×2 (09:30→22:02)
[2017-08-20] MEDS: FINASTERIDE 5 MG TAB PO SCH (09:30)
[2017-08-20] MEDS: PROPRANOLOL HCL 20 MG TAB PO SCH ×2 (09:31→22:02)
[2017-08-20] MEDS: TACROLIMUS 0.5 MG CAP PO SCH (09:35)
[2017-08-20] MEDS ORDERED: methylPREDNISolone SOD SUCC 125 MG/2 ML VL IV SCH (10:00)
[2017-08-20] MEDS: SIROLIMUS 1 MG PO SCH (10:54)
[2017-08-20] MEDS ORDERED: FLUCONAZOLE 100 MG TAB PO ONE (15:45)
[2017-08-20] MEDS: IPRATROPIUM BROM 0.5 MG/2.5ML INH SOL NEB SCH (18:39)
[2017-08-20] MEDS: ALBUTEROL SULF 2.5 MG/0.5ML(0.5%) NEB SOLN NEB SCH (18:39)
[2017-08-20] MEDS: BUDESONIDE (INHALATION) 0.5 MG/2 ML NEB NEB SCH (18:39)
[2017-08-20] MEDS: AZITHROMYCIN 500MG/ 250ML 250 ML IV SCH (22:01)
[2017-08-20] MEDS: methylPREDNISolone SOD SUCC 125 MG/2 ML VL IV SCH (22:01)
[2017-08-20] MEDS: TACROLIMUS 1 MG CAP PO SCH (22:02)
[2017-08-20] MEDS: PRAVASTATIN SODIUM 20 MG TAB PO SCH (22:02)
[2017-08-20] MEDS: MONTELUKAST SODIUM 10 MG TAB PO SCH (22:02)
[2017-08-20] MEDS: MIRTAZAPINE 30 MG TAB PO SCH (22:03)
[2017-08-20] MEDS: TEMAZEPAM 15 MG CAP PO PRN (22:03)
[2017-08-21 05:00] VITALS: BP 104/75
[2017-08-21 05:32] LABS: BUN/Creatinine Ratio 29.1; Potassium 4.2 mmol/L (3.5-5.1)
[2017-08-21] MEDS: METOCLOPRAMIDE HCL 10 MG TAB PO SCH ×3 (06:30→21:50)
[2017-08-21] MEDS: ALBUTEROL SULF 2.5 MG/0.5ML(0.5%) NEB SOLN NEB SCH ×3 (06:58→19:12)
[2017-08-21] MEDS: IPRATROPIUM BROM 0.5 MG/2.5ML INH SOL NEB SCH ×4 (06:58→19:13)
[2017-08-21 08:00] VITALS: BP 147/79
[2017-08-21] MEDS: cefTRIAXone 1GM/10ml IVPUSH 10 ML IV SCH (08:22)
[2017-08-21] MEDS: HYDROcodone-ACET 7.5/325MG TAB PO PRN ×2 (08:23→19:04)
[2017-08-21] MEDS: methylPREDNISolone SOD SUCC 125 MG/2 ML VL IV SCH ×2 (09:33→21:50)
[2017-08-21] MEDS: SIROLIMUS 1 MG PO SCH (09:34)
[2017-08-21] MEDS: FLUCONAZOLE 100 MG TAB PO SCH (09:34)
[2017-08-21] MEDS: SULFAMETHOX W/TRIMETH(800/160MG) DS TAB PO SCH (09:34)
[2017-08-21] MEDS: PROPRANOLOL HCL 20 MG TAB PO SCH ×2 (09:34→21:51)
[2017-08-21] MEDS: GEMFIBROZIL 600 MG TAB PO SCH ×2 (09:35→21:50)
[2017-08-21] MEDS: FINASTERIDE 5 MG TAB PO SCH (09:35)
[2017-08-21] MEDS: TACROLIMUS 0.5 MG CAP PO SCH (09:35)
[2017-08-21] MEDS: FAMOTIDINE 20 MG TAB PO SCH ×2 (09:35→21:54)
[2017-08-21 13:00] VITALS: BP 134/87
[2017-08-21] MEDS: BUDESONIDE (INHALATION) 0.5 MG/2 ML NEB NEB SCH ×2 (14:29→22:00)
[2017-08-21 16:54] VITALS: BP 131/100
[2017-08-21] MEDS: ACETYLCYSTEINE 10 %(100MG/ML) SOL 4ML NEB SCH (18:00)
[2017-08-21] MEDS: SALINE 0.65 % NASAL SPRAY 45ML BOTTLE EACHNOSTRI SCH ×2 (18:03→21:51)
[2017-08-21 20:00] VITALS: BP 133/88
[2017-08-21] MEDS: AZITHROMYCIN 500MG/ 250ML 250 ML IV SCH (21:49)
[2017-08-21] MEDS: MONTELUKAST SODIUM 10 MG TAB PO SCH (21:50)
[2017-08-21] MEDS: PRAVASTATIN SODIUM 20 MG TAB PO SCH (21:50)
[2017-08-21] MEDS: TACROLIMUS 1 MG CAP PO SCH (21:50)
[2017-08-21] MEDS: MIRTAZAPINE 30 MG TAB PO SCH (21:52)
[2017-08-21 22:48] VITALS: BP 133/88
[2017-08-22 05:26] VITALS: BP 113/71
[2017-08-22] MEDS: SALINE 0.65 % NASAL SPRAY 45ML BOTTLE EACHNOSTRI SCH ×4 (06:00→22:37)
[2017-08-22] MEDS: IPRATROPIUM BROM 0.5 MG/2.5ML INH SOL NEB SCH ×4 (06:27→20:40)
[2017-08-22] MEDS: ACETYLCYSTEINE 10 %(100MG/ML) SOL 4ML NEB SCH ×4 (06:27→20:40)
[2017-08-22] MEDS: ALBUTEROL SULF 2.5 MG/0.5ML(0.5%) NEB SOLN NEB SCH ×4 (06:27→20:40)
[2017-08-22] MEDS: METOCLOPRAMIDE HCL 10 MG TAB PO SCH ×3 (06:32→22:36)
[2017-08-22 09:00] VITALS: BP 128/83
[2017-08-22] MEDS: methylPREDNISolone SOD SUCC 125 MG/2 ML VL IV SCH ×2 (09:45→22:37)
[2017-08-22] MEDS: cefTRIAXone 1GM/10ml IVPUSH 10 ML IV SCH (09:45)
[2017-08-22] MEDS: FAMOTIDINE 20 MG TAB PO SCH ×2 (09:46→22:36)
[2017-08-22] MEDS: SULFAMETHOX W/TRIMETH(800/160MG) DS TAB PO SCH (09:46)
[2017-08-22] MEDS: GEMFIBROZIL 600 MG TAB PO SCH ×2 (09:46→22:36)
[2017-08-22] MEDS: FLUCONAZOLE 100 MG TAB PO SCH (09:46)
[2017-08-22] MEDS: FINASTERIDE 5 MG TAB PO SCH (09:46)
[2017-08-22] MEDS: TACROLIMUS 0.5 MG CAP PO SCH (09:46)
[2017-08-22] MEDS: SIROLIMUS 1 MG PO SCH (09:46)
[2017-08-22] MEDS: HYDROcodone-ACET 7.5/325MG TAB PO PRN ×2 (09:47→17:32)
[2017-08-22] MEDS: PROPRANOLOL HCL 20 MG TAB PO SCH ×2 (09:47→22:36)
[2017-08-22] MEDS: BUDESONIDE (INHALATION) 0.5 MG/2 ML NEB NEB SCH ×2 (09:48→20:40)
[2017-08-22 13:00] VITALS: BP 134/92
[2017-08-22 17:00] VITALS: BP 136/94
[2017-08-22 20:00] VITALS: BP 144/73
[2017-08-22 22:00] VITALS: BP 144/73
[2017-08-22] MEDS: AZITHROMYCIN 500MG/ 250ML 250 ML IV SCH (22:35)
[2017-08-22] MEDS: MONTELUKAST SODIUM 10 MG TAB PO SCH (22:36)
[2017-08-22] MEDS: MIRTAZAPINE 30 MG TAB PO SCH (22:36)
[2017-08-22] MEDS: PRAVASTATIN SODIUM 20 MG TAB PO SCH (22:36)
[2017-08-22] MEDS: TACROLIMUS 1 MG CAP PO SCH (22:37)
[2017-08-23 02:33] VITALS: BP 144/73
[2017-08-23 05:30] VITALS: BP 121/69
[2017-08-23] MEDS: METOCLOPRAMIDE HCL 10 MG TAB PO SCH ×3 (06:06→22:25)
[2017-08-23] MEDS: SALINE 0.65 % NASAL SPRAY 45ML BOTTLE EACHNOSTRI SCH ×4 (06:07→22:28)
[2017-08-23] MEDS: ACETYLCYSTEINE 10 %(100MG/ML) SOL 4ML NEB SCH ×4 (06:51→19:38)
[2017-08-23] MEDS: ALBUTEROL SULF 2.5 MG/0.5ML(0.5%) NEB SOLN NEB SCH ×4 (06:51→19:38)
[2017-08-23] MEDS: IPRATROPIUM BROM 0.5 MG/2.5ML INH SOL NEB SCH ×4 (06:51→19:38)
[2017-08-23 09:00] VITALS: BP 148/99
[2017-08-23] MEDS: cefTRIAXone 1GM/10ml IVPUSH 10 ML IV SCH (09:22)
[2017-08-23] MEDS: methylPREDNISolone SOD SUCC 125 MG/2 ML VL IV SCH ×2 (09:23→22:28)
[2017-08-23] MEDS: TACROLIMUS 0.5 MG CAP PO SCH (09:27)
[2017-08-23] MEDS: PROPRANOLOL HCL 20 MG TAB PO SCH ×2 (09:28→22:26)
[2017-08-23] MEDS: FINASTERIDE 5 MG TAB PO SCH (09:29)
[2017-08-23] MEDS: FLUCONAZOLE 100 MG TAB PO SCH (09:29)
[2017-08-23] MEDS: GEMFIBROZIL 600 MG TAB PO SCH ×2 (09:29→22:25)
[2017-08-23] MEDS: SULFAMETHOX W/TRIMETH(800/160MG) DS TAB PO SCH (09:29)
[2017-08-23] MEDS: SIROLIMUS 1 MG PO SCH (09:30)
[2017-08-23] MEDS: FAMOTIDINE 20 MG TAB PO SCH ×2 (09:33→22:27)
[2017-08-23] MEDS: BUDESONIDE (INHALATION) 0.5 MG/2 ML NEB NEB SCH ×2 (09:57→19:38)
[2017-08-23] MEDS: HYDROcodone-ACET 7.5/325MG TAB PO PRN (12:23)
[2017-08-23 13:00] VITALS: BP 132/94
[2017-08-23 16:00] VITALS: BP 125/98
[2017-08-23 22:00] VITALS: BP 140/97
[2017-08-23] MEDS: AZITHROMYCIN 500MG/ 250ML 250 ML IV SCH (22:25)
[2017-08-23] MEDS: TACROLIMUS 1 MG CAP PO SCH (22:25)
[2017-08-23] MEDS: MIRTAZAPINE 30 MG TAB PO SCH (22:27)
[2017-08-23] MEDS: PRAVASTATIN SODIUM 20 MG TAB PO SCH (22:27)
[2017-08-23] MEDS: MONTELUKAST SODIUM 10 MG TAB PO SCH (22:27)
[2017-08-23] MEDS: TEMAZEPAM 15 MG CAP PO PRN (22:34)
[2017-08-24 05:00] VITALS: BP 121/83
[2017-08-24 05:38] LABS: Basophils # (auto) 0 uL; Basophils % (auto) 0.3 % (0.0-2.0); Eosinophils # (auto) 0 uL; Hematocrit 39.7 % (41.0-53.0); Hemoglobin 13.2 g/dL (13.5-17.5); Lymphocytes # (auto) 0.3 uL; Mean Corpuscular Hemoglobin 27.5 pg (28.0-32.0); Mean Corpuscular Hgb Conc. 33.2 g/dL (32.0-36.0); Mean Corpuscular Volume 82.9 fL (80.0-100.0); Monocytes # (auto) 0.4 uL; Monocytes % (auto) 5.4 % (0.0-12.0); Neutrophils % (auto) 90.3 % (37.0-80.0); Nucleated Red Blood Cells % 0.1 %; Platelet Count (auto) 247 10^3/uL (140-450); Red Blood Cells 4.78 10^6/uL (4.5-5.90); Red Cell Distribution Width 16.4 % (11.8-14.3); White Blood Cell 7.7 10^3/uL (4.4-10.8)
[2017-08-24 05:56] LABS: BUN/Creatinine Ratio 26.9; Calcium 8.1 mg/dL (8.5-10.1); Potassium 4.3 mmol/L (3.5-5.1)
[2017-08-24] MEDS: METOCLOPRAMIDE HCL 10 MG TAB PO SCH ×3 (06:21→21:39)
[2017-08-24] MEDS: SALINE 0.65 % NASAL SPRAY 45ML BOTTLE EACHNOSTRI SCH ×4 (06:22→21:42)
[2017-08-24] MEDS: ALBUTEROL SULF 2.5 MG/0.5ML(0.5%) NEB SOLN NEB SCH ×4 (06:23→18:24)
[2017-08-24] MEDS: BUDESONIDE (INHALATION) 0.5 MG/2 ML NEB NEB SCH ×2 (06:24→18:24)
[2017-08-24] MEDS: ACETYLCYSTEINE 10 %(100MG/ML) SOL 4ML NEB SCH ×4 (06:24→18:25)
[2017-08-24] MEDS: IPRATROPIUM BROM 0.5 MG/2.5ML INH SOL NEB SCH ×4 (06:24→18:24)
[2017-08-24 08:19] VITALS: BP 125/78
[2017-08-24] MEDS: methylPREDNISolone SOD SUCC 125 MG/2 ML VL IV SCH (10:14)
[2017-08-24] MEDS: cefTRIAXone 1GM/10ml IVPUSH 10 ML IV SCH (10:14)
[2017-08-24] MEDS: PROPRANOLOL HCL 20 MG TAB PO SCH ×2 (10:15→21:40)
[2017-08-24] MEDS: HYDROcodone-ACET 7.5/325MG TAB PO PRN ×2 (10:15→20:12)
[2017-08-24] MEDS: FINASTERIDE 5 MG TAB PO SCH (10:15)
[2017-08-24] MEDS: SULFAMETHOX W/TRIMETH(800/160MG) DS TAB PO SCH (10:15)
[2017-08-24] MEDS: TACROLIMUS 0.5 MG CAP PO SCH (10:15)
[2017-08-24] MEDS: GEMFIBROZIL 600 MG TAB PO SCH ×2 (10:15→21:39)
[2017-08-24] MEDS: FLUCONAZOLE 100 MG TAB PO SCH (10:15)
[2017-08-24] MEDS: SIROLIMUS 1 MG PO SCH (10:16)
[2017-08-24] MEDS: FAMOTIDINE 20 MG TAB PO SCH ×2 (10:16→21:39)
[2017-08-24] MEDS ORDERED: MEPERIDINE HCL (25 MG/ML) 1ML VIAL IM ONE (10:30)
[2017-08-24] MEDS ORDERED: LIDOCAINE HCL 2 % INJ 2ML MPF NEB ONE (10:30)
[2017-08-24] MEDS ORDERED: MEPERIDINE HCL (50 MG/ML) 1 ML VIAL IV ONE (10:45)
[2017-08-24] MEDS ORDERED: MEPERIDINE HCL (50 MG/ML) 1 ML VIAL IM ONE (10:45)
[2017-08-24] MEDS ORDERED: LIDOCAINE 2%HCL (LOCAL ANESTH.) INJ 20ML MDV ONE (11:56)
[2017-08-24] MEDS ORDERED: BENZOCAINE (DENTAL) 20 % SPRAY 60ML MT ONE (11:56)
[2017-08-24] MEDS ORDERED: SODIUM CHLORIDE LOCK 30 ML ONE (11:56)
[2017-08-24] MEDS ORDERED: EPINEPHrine HCL 1 MG/1 ML AMP ONE (11:57)
[2017-08-24] MEDS ORDERED: LIDOCAINE HCL 2% TOP JELLY 5ML TOP ONE (11:57)
[2017-08-24 12:04] LABS: INR 0.96 (0.9-1.15); Partial Thromboplastin Time 20.5 sec (22.64-33.71); Prothrombin Time 10.5 sec (9.37-12.3)
[2017-08-24] MEDS: methylPREDNISolone SOD SUCC 40 MG/ML VL IV SCH ×2 (12:15→21:42)
[2017-08-24 13:27] VITALS: BP 134/88
[2017-08-24] MEDS: MIDAZOLAM HCL 5 MG/ML-1ML VIAL ONE ×10 (14:09→14:29)
[2017-08-24] MEDS ORDERED: MIDAZOLAM HCL 5 MG/ML-1ML VIAL IV ONE ×2 (14:15→17:00)
[2017-08-24 17:23] VITALS: BP 123/83
[2017-08-24] MEDS: MONTELUKAST SODIUM 10 MG TAB PO SCH (21:39)
[2017-08-24] MEDS: TACROLIMUS 1 MG CAP PO SCH (21:39)
[2017-08-24] MEDS: MIRTAZAPINE 30 MG TAB PO SCH (21:39)
[2017-08-24] MEDS: PRAVASTATIN SODIUM 20 MG TAB PO SCH (21:39)
[2017-08-24] MEDS: AZITHROMYCIN 500MG/ 250ML 250 ML IV SCH (21:41)
[2017-08-24 22:00] VITALS: BP 134/78
[2017-08-24] MEDS: TEMAZEPAM 15 MG CAP PO PRN (23:40)
[2017-08-25 05:00] VITALS: BP 129/83
[2017-08-25] MEDS: METOCLOPRAMIDE HCL 10 MG TAB PO SCH (06:45)
[2017-08-25] MEDS: SALINE 0.65 % NASAL SPRAY 45ML BOTTLE EACHNOSTRI SCH ×2 (06:46→11:58)
[2017-08-25] MEDS: ACETYLCYSTEINE 10 %(100MG/ML) SOL 4ML NEB SCH ×2 (06:47→10:13)
[2017-08-25] MEDS: IPRATROPIUM BROM 0.5 MG/2.5ML INH SOL NEB SCH ×2 (06:47→10:13)
[2017-08-25] MEDS: ALBUTEROL SULF 2.5 MG/0.5ML(0.5%) NEB SOLN NEB SCH ×2 (06:47→10:13)
[2017-08-25 08:00] VITALS: BP 156/104
[2017-08-25] MEDS: cefTRIAXone 1GM/10ml IVPUSH 10 ML IV SCH (09:00)
[2017-08-25 09:16] VITALS: BP 156/104
[2017-08-25] MEDS: SULFAMETHOX W/TRIMETH(800/160MG) DS TAB PO SCH (09:20)
[2017-08-25] MEDS: GEMFIBROZIL 600 MG TAB PO SCH (09:20)
[2017-08-25] MEDS: FINASTERIDE 5 MG TAB PO SCH (09:20)
[2017-08-25] MEDS: FAMOTIDINE 20 MG TAB PO SCH (09:20)
[2017-08-25] MEDS: FLUCONAZOLE 100 MG TAB PO SCH (09:21)
[2017-08-25] MEDS: TACROLIMUS 0.5 MG CAP PO SCH (09:22)
[2017-08-25] MEDS: PROPRANOLOL HCL 20 MG TAB PO SCH (09:22)
[2017-08-25] MEDS: SIROLIMUS 1 MG PO SCH (09:22)
[2017-08-25] MEDS: methylPREDNISolone SOD SUCC 40 MG/ML VL IV SCH (09:23)
[2017-08-25] MEDS: BUDESONIDE (INHALATION) 0.5 MG/2 ML NEB NEB SCH (10:13)
[2017-08-25 12:27] VITALS: BP_DIAS 104
[2017-08-25 13:00] VITALS: BP 126/82
== END 2017-08-25 13:40 | disposition home or self-care (01) | DRG 202 ==
LOC: ER 14:37 → EDBD 14:37 → WEST WING 14:38
PROVIDERS: ADMIT Nurse Practitioner; ATTEND Internal Medicine
PROC: 0BC38ZZ Extirpation of Matter from Right Main Bronchus, Via Natural or Artificial Opening Endoscopic (ICD-10-PCS; 2017-08-24)
PROC: 0BC78ZZ Extirpation of Matter from Left Main Bronchus, Via Natural or Artificial Opening Endoscopic (ICD-10-PCS; principal; 2017-08-24 14:00)
DX: J45.901 Unspecified asthma with (acute) exacerbation (principal); J96.10 Chronic respiratory failure, unspecified whether with hypoxia or hypercapnia; Z94.83 Pancreas transplant status; R65.10 Systemic inflammatory response syndrome (SIRS) of non-infectious origin without acute organ dysfunction; I11.9 Hypertensive heart disease without heart failure; J44.9 Chronic obstructive pulmonary disease, unspecified; K21.9 Gastro-esophageal reflux disease without esophagitis; E11.9 Type 2 diabetes mellitus without complications; E78.5 Hyperlipidemia, unspecified; F12.90 Cannabis use, unspecified, uncomplicated; F41.9 Anxiety disorder, unspecified; I25.10 Atherosclerotic heart disease of native coronary artery without angina pectoris; Z79.4 Long term (current) use of insulin; Z80.0 Family history of malignant neoplasm of digestive organs; Z80.8 Family history of malignant neoplasm of other organs or systems; Z82.49 Family history of ischemic heart disease and other diseases of the circulatory system; Z82.79 Family history of other congenital malformations, deformations and chromosomal abnormalities; Z95.5 Presence of coronary angioplasty implant and graft; Z79.899 Other long term (current) drug therapy; Z79.82 Long term (current) use of aspirin
CPT/HCPCS: 31635; 36415; 71046; 80048; 80053; 80307; 81001; 83605; 83615; 84484; 85007; 85025; 85027; 85610; 85730; 86606; 87040; 87081; 93005; 94640; 94761; 96374; 96375; J0171; J2250; J7507

== ENCOUNTER 2017-08-27 12:25 | Inpatient (IN) | payer MEDICARE ==
[~2017-08-27] VITALS: Ht 160 cm; Wt 63.1 kg
[~2017-08-27 12:25] MED LIST changes: -QUET50TA PO; +TRAZ100T2 PO
[2017-08-27] MEDS ORDERED: ALBUTEROL SULF 2.5 MG/0.5ML(0.5%) NEB SOLN HHN ONE (13:00)
[2017-08-27] MEDS ORDERED: methylPREDNISolone SOD SUCC 125 MG/2 ML VL IV ONE (13:00)
[2017-08-27] MEDS ORDERED: IPRATROPIUM BROM 0.5 MG/2.5ML INH SOL HHN ONE (13:00)
[2017-08-27 13:40] LABS: Basophils # (auto) 0.1 uL; Basophils % (auto) 1.1 % (0.0-2.0); Eosinophils # (auto) 0 uL; Eosinophils % (auto) 0.1 % (0.0-7.0); Hematocrit 40.5 % (41.0-53.0); Hemoglobin 13.2 g/dL (13.5-17.5); Lymphocytes # (auto) 0.5 uL; Lymphocytes % (auto) 5.7 % (10.0-50.0); Mean Corpuscular Hemoglobin 27.2 pg (28.0-32.0); Mean Corpuscular Hgb Conc. 32.7 g/dL (32.0-36.0); Monocytes # (auto) 1.1 uL; Monocytes % (auto) 11.6 % (0.0-12.0); Neutrophils # (auto) 7.8 uL; Neutrophils % (auto) 81.5 % (37.0-80.0); Platelet Count (auto) 228 10^3/uL (140-450); Red Blood Cells 4.87 10^6/uL (4.5-5.90); Red Cell Distribution Width 16.6 % (11.8-14.3); White Blood Cell 9.6 10^3/uL (4.4-10.8)
[2017-08-27 13:52] LABS: Albumin 2.7 g/dL (3.4-5.0); Bilirubin, Total 0.3 mg/dL (0.2-1.0); Calcium 7.8 mg/dL (8.5-10.1); Magnesium 2.3 mg/dL (1.6-2.6); Potassium 4.1 mmol/L (3.5-5.1)
[2017-08-27] MEDS ORDERED: OSELTAMIVIR 75 MG CAP PO ONE (14:30)
[2017-08-27] MEDS ORDERED: ALBUTEROL SULF 2.5 MG/0.5ML(0.5%) NEB SOLN NEB PRN (14:30)
[2017-08-27] MEDS ORDERED: NITROGLYCERIN 0.4 MG SL TAB SL PRN (14:30)
[2017-08-27] MEDS ORDERED: MORPHINE SULFATE 4 MG/ML SYR/VIAL IV PRN ×2 (14:30)
[2017-08-27] MEDS ORDERED: TEMAZEPAM 15 MG CAP PO PRN (14:30)
[2017-08-27] MEDS ORDERED: PROMETHAZINE HCL 25 MG/ML 1ML IV PRN (14:30)
[2017-08-27] MEDS ORDERED: ACETAMINOPHEN 500 MG TAB PO PRN (14:30)
[2017-08-27] MEDS ORDERED: DEXTROSE (50%) 50ML SYRG IV PRN (14:30)
[2017-08-27] MEDS ORDERED: LORazepam 0.5 MG TAB PO PRN (14:30)
[2017-08-27] MEDS: SODIUM CHLORIDE 0.9% 1,000 ML IV SCH (15:57)
[2017-08-27] MEDS ORDERED: ALPRAZolam 0.5 MG TAB PO PRN (16:00)
[2017-08-27] MEDS: DOXYCYCLINE HYC 100MG/250ML 250 ML IV SCH (16:05)
[2017-08-27] MEDS: HYDROcodone-ACET 5/325MG TAB PO PRN (16:11)
[2017-08-27] MEDS: ACCU-CHEK COMFORT CURVE STRIP VI SCH ×2 (16:54→23:15)
[2017-08-27] MEDS: METOCLOPRAMIDE HCL 10 MG/10ml ORAL soln PO SCH (16:54)
[2017-08-27] MEDS: InsuLIN REG 1unit/0.01ml Soln (100units/ml) SC SCH ×2 (16:55→22:00)
[2017-08-27] MEDS ORDERED: GABAPENTIN ENACARBIL 600 MG PO SCH (18:00)
[2017-08-27] MEDS: methylPREDNISolone SOD SUCC 40 MG/ML VL IV SCH ×2 (18:00→23:14)
[2017-08-27] MEDS: MIRTAZAPINE 30 MG TAB PO SCH (18:06)
[2017-08-27] MEDS: ALBUTEROL SULF 2.5 MG/0.5ML(0.5%) NEB SOLN NEB SCH (18:23)
[2017-08-27] MEDS: IPRATROPIUM BROM 0.5 MG/2.5ML INH SOL NEB SCH (18:23)
[2017-08-27 20:00] VITALS: BP 135/85
[2017-08-27] MEDS ORDERED: OSELTAMIVIR 75 MG CAP PO SCH (22:00)
[2017-08-27] MEDS ORDERED: traZODone HCL 50 MG TAB PO PRN (22:00)
[2017-08-27 23:00] VITALS: BP 135/85
[2017-08-27] MEDS: TACROLIMUS 1 MG CAP PO SCH (23:16)
[2017-08-27] MEDS: PROPRANOLOL HCL 20 MG TAB PO SCH (23:17)
[2017-08-27] MEDS: FEXOFENADINE HCL 60 MG TAB PO SCH (23:17)
[2017-08-27] MEDS: PANTOPRAZOLE 40 MG TAB PO SCH (23:18)
[2017-08-27] MEDS: PRAVASTATIN SODIUM 20 MG TAB PO SCH (23:18)
[2017-08-27] MEDS: GEMFIBROZIL 600 MG TAB PO SCH (23:18)
[2017-08-28] MEDS: ALBUTEROL SULF 2.5 MG/0.5ML(0.5%) NEB SOLN NEB SCH ×4 (00:27→20:04)
[2017-08-28] MEDS: IPRATROPIUM BROM 0.5 MG/2.5ML INH SOL NEB SCH ×4 (00:27→20:04)
[2017-08-28] MEDS: DOXYCYCLINE HYC 100MG/250ML 250 ML IV SCH ×2 (02:42→14:14)
[2017-08-28] MEDS: SODIUM CHLORIDE 0.9% 1,000 ML IV SCH ×2 (03:44→14:00)
[2017-08-28 05:00] VITALS: BP 119/65
[2017-08-28 06:32] LABS: Urine Bacteria NONE SEEN /hpf (None Seen); Urine Blood Negative /uL (Negative); Urine Mucus FEW (None Seen); Urine Specific Gravity 1.026 (1.001-1.035); Urine WBC 2 /hpf (0 - 3)
[2017-08-28] MEDS: methylPREDNISolone SOD SUCC 40 MG/ML VL IV SCH ×4 (06:51→22:57)
[2017-08-28] MEDS: METOCLOPRAMIDE HCL 10 MG/10ml ORAL soln PO SCH ×3 (06:51→17:40)
[2017-08-28] MEDS: ACCU-CHEK COMFORT CURVE STRIP VI SCH ×4 (06:51→22:37)
[2017-08-28] MEDS: InsuLIN REG 1unit/0.01ml Soln (100units/ml) SC SCH ×4 (06:57→22:00)
[2017-08-28 07:27] VITALS: BP 123/74
[2017-08-28] MEDS: ENOXAPARIN SOD 40 MG/0.4 ML SYRINGE SC SCH (10:00)
[2017-08-28] MEDS: PROPRANOLOL HCL 20 MG TAB PO SCH ×2 (10:00→22:54)
[2017-08-28] MEDS: TAMSULOSIN HYDROCHLORIDE 0.4 MG CAP PO SCH (11:09)
[2017-08-28] MEDS: SIROLIMUS 1 MG PO SCH (11:09)
[2017-08-28] MEDS: TACROLIMUS 0.5 MG CAP PO SCH (11:10)
[2017-08-28] MEDS: FEXOFENADINE HCL 60 MG TAB PO SCH ×2 (11:10→22:54)
[2017-08-28] MEDS: PANTOPRAZOLE 40 MG TAB PO SCH ×2 (11:10→22:53)
[2017-08-28] MEDS: GEMFIBROZIL 600 MG TAB PO SCH ×2 (11:12→22:53)
[2017-08-28] MEDS: FLUCONAZOLE 100 MG TAB PO SCH (11:12)
[2017-08-28] MEDS: MONTELUKAST SODIUM 10 MG TAB PO SCH (11:12)
[2017-08-28] MEDS: FINASTERIDE 5 MG TAB PO SCH (11:12)
[2017-08-28] MEDS: FLUTICASONE PROP NASAL SPR 0.05 % (50MCG) 16GM SCH (11:29)
[2017-08-28] MEDS: HYDROcodone-ACET 5/325MG TAB PO PRN ×2 (11:49→20:34)
[2017-08-28 13:37] VITALS: BP 122/73
[2017-08-28 14:19] VITALS: BP 122/73
[2017-08-28 16:44] VITALS: BP 106/67
[2017-08-28] MEDS: MIRTAZAPINE 30 MG TAB PO SCH (17:40)
[2017-08-28 22:04] VITALS: BP 117/72
[2017-08-28] MEDS: TACROLIMUS 1 MG CAP PO SCH (22:52)
[2017-08-28] MEDS: PRAVASTATIN SODIUM 20 MG TAB PO SCH (22:53)
[2017-08-29] MEDS: IPRATROPIUM BROM 0.5 MG/2.5ML INH SOL NEB SCH ×2 (00:44→06:45)
[2017-08-29] MEDS: ALBUTEROL SULF 2.5 MG/0.5ML(0.5%) NEB SOLN NEB SCH ×2 (00:44→06:46)
[2017-08-29] MEDS: DOXYCYCLINE HYC 100MG/250ML 250 ML IV SCH (02:21)
[2017-08-29 05:00] VITALS: BP 115/66
[2017-08-29] MEDS: methylPREDNISolone SOD SUCC 40 MG/ML VL IV SCH ×2 (06:52→12:04)
[2017-08-29] MEDS: METOCLOPRAMIDE HCL 10 MG/10ml ORAL soln PO SCH ×2 (06:52→12:04)
[2017-08-29] MEDS: SODIUM CHLORIDE 0.9% 1,000 ML IV SCH (06:54)
[2017-08-29] MEDS: InsuLIN REG 1unit/0.01ml Soln (100units/ml) SC SCH ×2 (07:00→11:30)
[2017-08-29] MEDS: ACCU-CHEK COMFORT CURVE STRIP VI SCH ×2 (07:19→12:10)
[2017-08-29 07:54] VITALS: BP 112/60
[2017-08-29] MEDS: ENOXAPARIN SOD 40 MG/0.4 ML SYRINGE SC SCH (10:00)
[2017-08-29] MEDS: PROPRANOLOL HCL 20 MG TAB PO SCH (10:00)
[2017-08-29] MEDS: MONTELUKAST SODIUM 10 MG TAB PO SCH (10:31)
[2017-08-29] MEDS: SIROLIMUS 1 MG PO SCH (10:31)
[2017-08-29] MEDS: FLUCONAZOLE 100 MG TAB PO SCH (10:32)
[2017-08-29] MEDS: PANTOPRAZOLE 40 MG TAB PO SCH (10:32)
[2017-08-29] MEDS: TAMSULOSIN HYDROCHLORIDE 0.4 MG CAP PO SCH (10:32)
[2017-08-29] MEDS: GEMFIBROZIL 600 MG TAB PO SCH (10:33)
[2017-08-29] MEDS: FINASTERIDE 5 MG TAB PO SCH (10:33)
[2017-08-29] MEDS: FEXOFENADINE HCL 60 MG TAB PO SCH (10:33)
[2017-08-29] MEDS: TACROLIMUS 0.5 MG CAP PO SCH (10:33)
[2017-08-29] MEDS: HYDROcodone-ACET 5/325MG TAB PO PRN (10:34)
[2017-08-29] MEDS: FLUTICASONE PROP NASAL SPR 0.05 % (50MCG) 16GM SCH (10:35)
[2017-08-29 12:29] VITALS: BP 104/79
[2017-08-29 12:32] VITALS: BP 140/79
== END 2017-08-29 14:42 | disposition home or self-care (01) | DRG 190 ==
LOC: ER 12:25 → EDBD 12:25 → TELE 12:26 → TELE-WESTW 19:47
PROVIDERS: ADMIT Internal Medicine; ATTEND Family Medicine
DX: J44.1 Chronic obstructive pulmonary disease with (acute) exacerbation (principal); E43 Unspecified severe protein-calorie malnutrition; K31.84 Gastroparesis; E10.43 Type 1 diabetes mellitus with diabetic autonomic (poly)neuropathy; Z94.83 Pancreas transplant status; Z99.81 Dependence on supplemental oxygen; I25.10 Atherosclerotic heart disease of native coronary artery without angina pectoris; E78.00 Pure hypercholesterolemia, unspecified; E78.5 Hyperlipidemia, unspecified; I10 Essential (primary) hypertension; F41.9 Anxiety disorder, unspecified; G47.00 Insomnia, unspecified; K21.9 Gastro-esophageal reflux disease without esophagitis; K52.9 Noninfective gastroenteritis and colitis, unspecified; N40.0 Benign prostatic hyperplasia without lower urinary tract symptoms; Z80.0 Family history of malignant neoplasm of digestive organs; Z82.49 Family history of ischemic heart disease and other diseases of the circulatory system; Z82.79 Family history of other congenital malformations, deformations and chromosomal abnormalities; Z95.5 Presence of coronary angioplasty implant and graft; Z80.8 Family history of malignant neoplasm of other organs or systems; Z79.899 Other long term (current) drug therapy; Z91.19 Patient's noncompliance with other medical treatment and regimen
CPT/HCPCS: 36415; 71045; 80053; 81001; 82962; 83036; 83605; 83735; 83880; 84484; 85025; 85048; 87040; 87045; 87070; 87081; 87177; 87205; 87493; 87804; 87899; 93005; 94640; 94644; 96365; 96375; J1815; J3490; J7507

== ENCOUNTER 2017-08-30 15:16 | Inpatient (IN) | payer MEDICARE ==
[~2017-08-30] VITALS: Ht 165.1 cm; Wt 68.3 kg
[2017-08-30 16:08] LABS: Albumin 2.7 g/dL (3.4-5.0); BUN/Creatinine Ratio 24.4; Calcium 7.5 mg/dL (8.5-10.1); Potassium 4.7 mmol/L (3.5-5.1)
[2017-08-30 16:11] LABS: Bilirubin, Total 0.3 mg/dL (0.2-1.0); Total Protein 5.7 g/dL (6.4-8.2)
[2017-08-30 16:15] LABS: Hematocrit 40.1 % (41.0-53.0); Hemoglobin 13.1 g/dL (13.5-17.5); Mean Corpuscular Hemoglobin 27.3 pg (28.0-32.0); Mean Corpuscular Hgb Conc. 32.6 g/dL (32.0-36.0); Mean Corpuscular Volume 83.8 fL (80.0-100.0); Platelet Count (auto) 195 10^3/uL (140-450); Red Blood Cells 4.78 10^6/uL (4.5-5.90); White Blood Cell 10.8 10^3/uL (4.4-10.8)
[2017-08-30 16:50] LABS: Band Neutrophils % (manual) 0
[2017-08-30 16:51] LABS: Basophils % (manual) 0 (0.0-2.0); Blast Cells 0; Eosinophils % (manual) 0 (0-7); Promyelocytes % 0; Reactive Lymphocytes 0
[2017-08-30 17:30] LABS: Lymphocytes % (manual) 4 (10.0-50.0); Metamyelocytes % 3; Monocytes % (manual) 8 (0-12); Myelocytes % 2
[2017-08-30 20:09] LABS: Urine Bacteria NONE SEEN /hpf (None Seen); Urine Blood TRACE /uL (Negative); Urine Specific Gravity 1.019 (1.001-1.035); Urine WBC <1 /hpf (0 - 3)
[2017-08-30 20:13] LABS: Amylase 84 U/L (25-115); Lipase 458 U/L (73-393)
[2017-08-30] MEDS ORDERED: SODIUM CHLORIDE 0.9% 1,000 ML IV ONE (21:00)
[2017-08-30] MEDS ORDERED: LEVOFLOXACIN 750MG 150 ML IV ONE (21:00)
[2017-08-30] MEDS ORDERED: methylPREDNISolone SOD SUCC 125 MG/2 ML VL IV ONE (21:00)
[2017-08-30] MEDS ORDERED: HYDROcodone-ACET 10/325MG TAB PO ONE (22:15)
[2017-08-30] MEDS ORDERED: ONDANSETRON HCL 4 MG/2 ML VIAL IV ONE (23:30)
[2017-08-31] VITALS (7 sets, daily range): BP systolic 127–143; BP diastolic 81–89
[2017-08-31] MEDS ORDERED: ACETAMINOPHEN 325 MG TAB PO PRN (00:45)
[2017-08-31] MEDS ORDERED: DEXTROSE (50%) 50ML SYRG IV PRN (00:45)
[2017-08-31] MEDS ORDERED: ONDANSETRON HCL 4 MG/2 ML VIAL IV PRN (00:45)
[2017-08-31] MEDS ORDERED: ALBUTEROL SULF 2.5 MG/0.5ML(0.5%) NEB SOLN NEB PRN (00:45)
[2017-08-31] MEDS ORDERED: TEMAZEPAM 15 MG CAP PO PRN (00:45)
[2017-08-31] MEDS ORDERED: PROPRANOLOL 20 MG PO SCH (00:45)
[2017-08-31] MEDS ORDERED: IPRATROPIUM BROM 0.5 MG/2.5ML INH SOL NEB PRN (00:45)
[2017-08-31] MEDS: ACCU-CHEK COMFORT CURVE STRIP VI SCH ×3 (05:45→18:14)
[2017-08-31] MEDS: InsuLIN REG 1unit/0.01ml Soln (100units/ml) SC SCH ×3 (05:45→18:00)
[2017-08-31] MEDS ORDERED: PROPRANOLOL HCL 20 MG TAB PO SCH (10:00)
[2017-08-31] MEDS: ENOXAPARIN SOD 40 MG/0.4 ML SYRINGE SC SCH (10:00)
[2017-08-31] MEDS ORDERED: TACROLIMUS 0.5 MG CAP PO SCH (10:00)
[2017-08-31] MEDS: predniSONE 5 MG TAB PO SCH (10:10)
[2017-08-31] MEDS: PANTOPRAZOLE 40 MG TAB PO SCH (10:10)
[2017-08-31] MEDS: GEMFIBROZIL 600 MG TAB PO SCH ×2 (10:10→21:42)
[2017-08-31] MEDS: HYDROcodone-ACET 5/325MG TAB PO PRN ×2 (10:11→16:34)
[2017-08-31] MEDS: FINASTERIDE 5 MG TAB PO SCH (10:11)
[2017-08-31] MEDS ORDERED: BUDESONIDE (INHALATION) 0.5 MG/2 ML NEB ONE (18:25)
[2017-08-31] MEDS: IPRATROPIUM BROM 0.5 MG/2.5ML INH SOL NEB SCH (19:15)
[2017-08-31] MEDS: ALBUTEROL SULF 2.5 MG/0.5ML(0.5%) NEB SOLN NEB SCH (19:15)
[2017-08-31] MEDS: BUDESONIDE (INHALATION) 0.5 MG/2 ML NEB NEB SCH (19:15)
[2017-08-31] MEDS: ACETYLCYSTEINE 10 %(100MG/ML) SOL 4ML NEB SCH (19:16)
[2017-08-31] MEDS: PRAVASTATIN SODIUM 20 MG TAB PO SCH (21:41)
[2017-08-31] MEDS: DOXYCYCLINE 100 MG TAB/CAP PO SCH (21:41)
[2017-08-31] MEDS: MONTELUKAST SODIUM 10 MG TAB PO SCH (21:43)
[2017-08-31] MEDS: HYDROcodone-ACET 10/325MG TAB PO PRN (21:43)
[2017-08-31] MEDS: MIRTAZAPINE 30 MG TAB PO SCH (21:44)
[2017-08-31] MEDS ORDERED: TACROLIMUS 1 MG CAP PO SCH (22:00)
[2017-09-01] MEDS: ALBUTEROL SULF 2.5 MG/0.5ML(0.5%) NEB SOLN NEB SCH ×4 (00:06→18:49)
[2017-09-01] MEDS: IPRATROPIUM BROM 0.5 MG/2.5ML INH SOL NEB SCH ×4 (00:06→18:49)
[2017-09-01] MEDS: ACETYLCYSTEINE 10 %(100MG/ML) SOL 4ML NEB SCH ×4 (00:07→18:49)
[2017-09-01] MEDS: methylPREDNISolone SOD SUCC 40 MG/ML VL IV SCH ×6 (00:29→23:59)
[2017-09-01] MEDS: ACCU-CHEK COMFORT CURVE STRIP VI SCH ×5 (00:39→23:59)
[2017-09-01 05:00] VITALS: BP 123/85
[2017-09-01] MEDS: HYDROcodone-ACET 10/325MG TAB PO PRN ×3 (05:01→20:10)
[2017-09-01] MEDS: InsuLIN REG 1unit/0.01ml Soln (100units/ml) SC SCH ×5 (05:38→23:59)
[2017-09-01 05:55] LABS: Hematocrit 39.9 % (41.0-53.0); Mean Corpuscular Hemoglobin 27.1 pg (28.0-32.0); Mean Corpuscular Hgb Conc. 32.5 g/dL (32.0-36.0); Mean Corpuscular Volume 83.5 fL (80.0-100.0); Platelet Count (auto) 147 10^3/uL (140-450); Red Blood Cells 4.78 10^6/uL (4.5-5.90); Red Cell Distribution Width 16.7 % (11.8-14.3)
[2017-09-01 06:13] LABS: Albumin 2.4 g/dL (3.4-5.0); Calcium 7.8 mg/dL (8.5-10.1); Potassium 4.4 mmol/L (3.5-5.1)
[2017-09-01 06:16] LABS: Basophils % (manual) 0 (0.0-2.0); Bilirubin, Total 0.3 mg/dL (0.2-1.0); Blast Cells 0; Eosinophils % (manual) 0 (0-7); Metamyelocytes % 0; Myelocytes % 0; Promyelocytes % 0; Reactive Lymphocytes 0; Total Protein 5.3 g/dL (6.4-8.2)
[2017-09-01 06:48] LABS: Band Neutrophils % (manual) 12; Lymphocytes % (manual) 6 (10.0-50.0); Monocytes % (manual) 2 (0-12)
[2017-09-01] MEDS ORDERED: SIROLIMUS 1 MG PO SCH (08:00)
[2017-09-01] MEDS: BUDESONIDE (INHALATION) 0.5 MG/2 ML NEB NEB SCH ×2 (08:46→18:49)
[2017-09-01 09:00] VITALS: BP 124/78
[2017-09-01] MEDS: ENOXAPARIN SOD 40 MG/0.4 ML SYRINGE SC SCH (10:00)
[2017-09-01] MEDS: FINASTERIDE 5 MG TAB PO SCH (10:01)
[2017-09-01] MEDS: DOXYCYCLINE 100 MG TAB/CAP PO SCH ×2 (10:01→21:37)
[2017-09-01] MEDS: GEMFIBROZIL 600 MG TAB PO SCH ×2 (10:01→21:36)
[2017-09-01] MEDS: TACROLIMUS 0.5 MG PO SCH (10:01)
[2017-09-01] MEDS: PANTOPRAZOLE 40 MG TAB PO SCH (10:01)
[2017-09-01] MEDS: predniSONE 5 MG TAB PO SCH (10:01)
[2017-09-01] MEDS: SIROLIMUS 1 MG PO SCH (10:02)
[2017-09-01 13:00] VITALS: BP 107/74
[2017-09-01] MEDS ORDERED: MORPHINE SULFATE 4 MG/ML SYR/VIAL IV ONE (16:15)
[2017-09-01 16:32] VITALS: BP 140/95
[2017-09-01] MEDS: MONTELUKAST SODIUM 10 MG TAB PO SCH (21:36)
[2017-09-01] MEDS: PRAVASTATIN SODIUM 20 MG TAB PO SCH (21:36)
[2017-09-01] MEDS: MIRTAZAPINE 30 MG TAB PO SCH (21:37)
[2017-09-01] MEDS: TACROLIMUS 1 MG PO SCH (21:37)
[2017-09-01 22:00] VITALS: BP 127/83
[2017-09-02] MEDS: IPRATROPIUM BROM 0.5 MG/2.5ML INH SOL NEB SCH ×4 (00:18→19:39)
[2017-09-02] MEDS: ALBUTEROL SULF 2.5 MG/0.5ML(0.5%) NEB SOLN NEB SCH ×4 (00:18→19:39)
[2017-09-02 05:00] VITALS: BP 119/84
[2017-09-02] MEDS: HYDROcodone-ACET 10/325MG TAB PO PRN ×2 (05:38→22:00)
[2017-09-02] MEDS: methylPREDNISolone SOD SUCC 40 MG/ML VL IV SCH ×2 (05:39→12:00)
[2017-09-02] MEDS: InsuLIN REG 1unit/0.01ml Soln (100units/ml) SC SCH ×3 (05:39→17:31)
[2017-09-02] MEDS: ACCU-CHEK COMFORT CURVE STRIP VI SCH ×3 (05:39→17:31)
[2017-09-02] MEDS: ACETYLCYSTEINE 10 %(100MG/ML) SOL 4ML NEB SCH ×3 (05:57→19:39)
[2017-09-02] MEDS: BUDESONIDE (INHALATION) 0.5 MG/2 ML NEB NEB SCH ×2 (05:58→19:39)
[2017-09-02 09:00] VITALS: BP 125/89
[2017-09-02] MEDS: PANTOPRAZOLE 40 MG TAB PO SCH (09:26)
[2017-09-02] MEDS: GEMFIBROZIL 600 MG TAB PO SCH ×2 (09:26→21:22)
[2017-09-02] MEDS: predniSONE 5 MG TAB PO SCH (09:26)
[2017-09-02] MEDS: DOXYCYCLINE 100 MG TAB/CAP PO SCH ×2 (09:26→21:22)
[2017-09-02] MEDS: FINASTERIDE 5 MG TAB PO SCH (09:27)
[2017-09-02] MEDS: TACROLIMUS 0.5 MG PO SCH (09:27)
[2017-09-02] MEDS: ENOXAPARIN SOD 40 MG/0.4 ML SYRINGE SC SCH (09:28)
[2017-09-02] MEDS: SIROLIMUS 1 MG PO SCH (09:28)
[2017-09-02 13:00] VITALS: BP 137/95
[2017-09-02] MEDS ORDERED: FLUCONAZOLE 100 MG TAB PO ONE (13:15)
[2017-09-02] MEDS: predniSONE 20 MG TAB PO SCH (13:31)
[2017-09-02] MEDS: MORPHINE SULFATE 4 MG/ML SYR/VIAL IV PRN (13:32)
[2017-09-02 17:13] VITALS: BP 131/85
[2017-09-02] MEDS: MONTELUKAST SODIUM 10 MG TAB PO SCH (21:22)
[2017-09-02] MEDS: PRAVASTATIN SODIUM 20 MG TAB PO SCH (21:22)
[2017-09-02] MEDS: MIRTAZAPINE 30 MG TAB PO SCH (21:22)
[2017-09-02] MEDS: DOCUSATE SOD 100 MG CAP PO SCH (21:22)
[2017-09-02] MEDS: TACROLIMUS 1 MG PO SCH (21:25)
[2017-09-02 22:00] VITALS: BP 135/82
[2017-09-03] MEDS: ACCU-CHEK COMFORT CURVE STRIP VI SCH ×3 (00:17→12:04)
[2017-09-03 03:23] VITALS: BP 135/82
[2017-09-03 05:00] VITALS: BP 132/81
[2017-09-03] MEDS: ALBUTEROL SULF 2.5 MG/0.5ML(0.5%) NEB SOLN NEB SCH ×3 (05:56→11:49)
[2017-09-03] MEDS: IPRATROPIUM BROM 0.5 MG/2.5ML INH SOL NEB SCH ×3 (05:57→11:49)
[2017-09-03] MEDS: ACETYLCYSTEINE 10 %(100MG/ML) SOL 4ML NEB SCH ×3 (05:57→11:50)
[2017-09-03] MEDS: InsuLIN REG 1unit/0.01ml Soln (100units/ml) SC SCH ×3 (06:00→12:00)
[2017-09-03] MEDS: HYDROcodone-ACET 10/325MG TAB PO PRN (06:03)
[2017-09-03 08:10] VITALS: BP 132/94
[2017-09-03] MEDS ORDERED: FLUCONAZOLE 100 MG TAB PO SCH (10:00)
[2017-09-03] MEDS: SIROLIMUS 1 MG PO SCH (10:00)
[2017-09-03] MEDS: TACROLIMUS 0.5 MG PO SCH (10:55)
[2017-09-03] MEDS: DOXYCYCLINE 100 MG TAB/CAP PO SCH (10:56)
[2017-09-03] MEDS: predniSONE 20 MG TAB PO SCH (10:56)
[2017-09-03] MEDS: FINASTERIDE 5 MG TAB PO SCH (10:57)
[2017-09-03] MEDS: DOCUSATE SOD 100 MG CAP PO SCH (10:58)
[2017-09-03] MEDS: PANTOPRAZOLE 40 MG TAB PO SCH (10:58)
[2017-09-03] MEDS: GEMFIBROZIL 600 MG TAB PO SCH (10:58)
[2017-09-03] MEDS: BUDESONIDE (INHALATION) 0.5 MG/2 ML NEB NEB SCH (11:50)
[2017-09-03] MEDS: MORPHINE SULFATE 4 MG/ML SYR/VIAL IV PRN (12:09)
[2017-09-03] MEDS ORDERED: methylPREDNISolone SOD SUCC 40 MG/ML VL IV ONE (12:15)
[2017-09-03] MEDS ORDERED: LORazepam 2MG/ML-1ML VIAL IV ONE (12:30)
[2017-09-03 12:48] VITALS: BP 130/91
== END 2017-09-03 14:35 | disposition home or self-care (01) | DRG 202 ==
LOC: ER 15:16 → EDBD 15:16 → TELE 15:17 → TELE-WESTW 08-31 02:05 → WEST WING 09-02 16:22
PROVIDERS: ADMIT Nurse Practitioner; ATTEND Internal Medicine
DX: J45.901 Unspecified asthma with (acute) exacerbation (principal); K85.90 Acute pancreatitis without necrosis or infection, unspecified; J96.10 Chronic respiratory failure, unspecified whether with hypoxia or hypercapnia; Z94.83 Pancreas transplant status; K21.9 Gastro-esophageal reflux disease without esophagitis; E11.9 Type 2 diabetes mellitus without complications; E78.5 Hyperlipidemia, unspecified; F41.9 Anxiety disorder, unspecified; I25.10 Atherosclerotic heart disease of native coronary artery without angina pectoris; G47.00 Insomnia, unspecified; F12.90 Cannabis use, unspecified, uncomplicated; I10 Essential (primary) hypertension; Z80.0 Family history of malignant neoplasm of digestive organs; Z82.79 Family history of other congenital malformations, deformations and chromosomal abnormalities; Z80.8 Family history of malignant neoplasm of other organs or systems; Z83.3 Family history of diabetes mellitus
CPT/HCPCS: 36415; 71045; 74176; 80053; 81001; 82150; 82962; 83605; 83690; 85007; 85027; 87040; 87081; 87804; 93005; 94640; 96365; 96366; 96375; J1956; J2405; J7507

== ENCOUNTER 2017-10-02 10:48 | Emergency (ER) | payer MEDICARE ==
[~2017-10-02] VITALS: Ht 160 cm; Wt 68.0 kg
[2017-10-02 11:44] LABS: Basophils # (auto) 0 uL; Eosinophils # (auto) 0 uL; Eosinophils % (auto) 0.3 % (0.0-7.0); Hemoglobin 13.1 g/dL (13.5-17.5); Mean Corpuscular Volume 82.8 fL (80.0-100.0); Monocytes # (auto) 0.6 uL
[2017-10-02 11:48] LABS: Basophils % (auto) 0.2 % (0.0-2.0); Hematocrit 40.2 % (41.0-53.0); Lymphocytes # (auto) 2.2 uL; Lymphocytes % (auto) 21.3 % (10.0-50.0); Mean Corpuscular Hemoglobin 26.9 pg (28.0-32.0); Mean Corpuscular Hgb Conc. 32.5 g/dL (32.0-36.0); Monocytes % (auto) 5.9 % (0.0-12.0); Neutrophils # (auto) 7.4 uL; Neutrophils % (auto) 72.3 % (37.0-80.0); Platelet Count (auto) 388 10^3/uL (140-450); Red Blood Cells 4.86 10^6/uL (4.5-5.90); Red Cell Distribution Width 16.9 % (11.8-14.3); White Blood Cell 10.3 10^3/uL (4.4-10.8)
[2017-10-02 12:10] LABS: Alanine Aminotransferase 21 U/L (16-61); Albumin 3.9 g/dL (3.4-5.0); Alkaline Phosphatase 117 U/L (45-117); Amylase 24 U/L (25-115); Anion Gap 8 (5-15); Aspartate Aminotransferase 21 U/L (15-37); BUN/Creatinine Ratio 6.9; Bilirubin, Total 0.5 mg/dL (0.2-1.0); Blood Urea Nitrogen 9 mg/dL (7-18); Calcium 8.6 mg/dL (8.5-10.1); Carbon Dioxide 24 mmol/L (21-32); Chloride 107 mmol/L (98-107); GFR African American 78 mL/min; GFR Non-African American 64 mL/min; Glucose 93 mg/dL (74-106); Lipase 98 U/L (73-393); Magnesium 1.5 mg/dL (1.6-2.6); Potassium 3.7 mmol/L (3.5-5.1); Sodium 139 mmol/L (136-145)
[2017-10-02 16:40] VITALS: BP 134/95
== END 2017-10-02 15:46 | disposition home or self-care (01) ==
LOC: ER 10:48 → EDBD 10:48 → ER 15:46
DX: N20.0 Calculus of kidney (principal); J45.909 Unspecified asthma, uncomplicated; I25.10 Atherosclerotic heart disease of native coronary artery without angina pectoris; E11.9 Type 2 diabetes mellitus without complications; K21.9 Gastro-esophageal reflux disease without esophagitis; E78.5 Hyperlipidemia, unspecified; I10 Essential (primary) hypertension; Z79.82 Long term (current) use of aspirin; Z79.899 Other long term (current) drug therapy
CPT/HCPCS: 36415; 74176; 80053; 82150; 83690; 83735; 84484; 85025; 93005

== ENCOUNTER 2018-07-31 17:20 | Emergency (ER) | payer MEDICARE ==
[~2018-07-31] VITALS: Ht 160 cm; Wt 65.8 kg
[~2018-07-31 17:20] MED LIST changes: -GEMF600T3 PO; +GEMF600T7 PO; +ONDA-143 SL; -ONDA8TAB6 SL
[2018-07-31 17:41] LABS: Basophils # (auto) 0 uL; Basophils % (auto) 0.4 % (0.0-2.0); Eosinophils # (auto) 0 uL; Eosinophils % (auto) 0.4 % (0.0-7.0); Hematocrit 40.2 % (41.0-53.0); Hemoglobin 13.2 g/dL (13.5-17.5); Mean Corpuscular Hemoglobin 26.6 pg (28.0-32.0); Mean Corpuscular Hgb Conc. 32.8 g/dL (32.0-36.0); Monocytes # (auto) 0.7 uL; Monocytes % (auto) 10.4 % (0.0-12.0); Neutrophils # (auto) 3.6 uL; Neutrophils % (auto) 56.8 % (37.0-80.0); Platelet Count (auto) 266 10^3/uL (140-450); Red Blood Cells 4.96 10^6/uL (4.5-5.90); White Blood Cell 6.3 10^3/uL (4.4-10.8)
[2018-07-31 17:56] LABS: Alanine Aminotransferase 18 U/L (16-61); Albumin 3.7 g/dL (3.4-5.0); Anion Gap 12 (5-15); Aspartate Aminotransferase 16 U/L (15-37); BUN/Creatinine Ratio 9.9; Blood Urea Nitrogen 14 mg/dL (7-18); Calcium 8.4 mg/dL (8.5-10.1); Carbon Dioxide 20 mmol/L (21-32); Chloride 110 mmol/L (98-107); GFR African American 71 mL/min; GFR Non-African American 58 mL/min; Glucose 105 mg/dL (74-106); Magnesium 1.8 mg/dL (1.6-2.6); Potassium 3.8 mmol/L (3.5-5.1); Sodium 142 mmol/L (136-145)
[2018-07-31 18:01] LABS: Alkaline Phosphatase 91 U/L (45-117); Bilirubin, Total 0.3 mg/dL (0.2-1.0)
[2018-07-31] MEDS ORDERED: IPRATROPIUM BROM 0.5 MG/2.5ML INH SOL NEB ONE (18:15)
[2018-07-31] MEDS ORDERED: ALBUTEROL SULF 2.5 MG/0.5ML(0.5%) NEB SOLN NEB ONE (18:15)
[2018-07-31 19:01] LABS: Urine Bacteria NONE SEEN /hpf (None Seen); Urine Blood Negative /uL (Negative); Urine Budding Yeast OCCASIONAL /hpf (None Seen); Urine Specific Gravity 1.008 (1.001-1.035); Urine WBC 1 /hpf (0 - 3)
[2018-07-31] MEDS ORDERED: ALBUTEROL SULF 2.5 MG/0.5ML(0.5%) NEB SOLN HHN ONE (21:00)
[2018-07-31] MEDS ORDERED: IPRATROPIUM BROM 0.5 MG/2.5ML INH SOL HHN ONE (21:00)
[2018-07-31] MEDS ORDERED: HYDROcodone-ACET 5/325MG TAB PO ONE (21:00)
[2018-07-31 21:06] VITALS: BP 156/104
== END 2018-07-31 21:17 | disposition still patient (30) ==
LOC: EDUNIT# 17:20 → EDBD 17:20 → ER 17:22
DX: J45.901 Unspecified asthma with (acute) exacerbation (principal); Z94.83 Pancreas transplant status; I25.10 Atherosclerotic heart disease of native coronary artery without angina pectoris; E11.9 Type 2 diabetes mellitus without complications; K21.9 Gastro-esophageal reflux disease without esophagitis; E78.00 Pure hypercholesterolemia, unspecified; I10 Essential (primary) hypertension; F12.10 Cannabis abuse, uncomplicated
CPT/HCPCS: 36415; 71046; 80053; 81001; 83690; 83735; 84484; 85025; 85379; 87804; 93005; 94640; 99284; J7611; J7644

== ENCOUNTER 2020-01-29 11:30 | Inpatient (IN) | payer MEDICARE, MEDICAID ==
[~2020-01-29] VITALS: Ht 160 cm; Wt 81.4 kg
[~2020-01-29 11:30] MED LIST changes: -BELLELX2 GT; -MIRT15TA3 PO; +MIRT1TAB38 PO; +PHEN1ELX6 GT; -PRO10T GT; +PROC10TA2 GT; -TRAZ100T2 PO; +TRAZ100T3 PO
[2020-01-29] MEDS ORDERED: SODIUM CHLORIDE 0.9% 1,000 ML IVB ONE (12:08)
[2020-01-29 12:20] LABS: Basophils # (auto) 0 10 ^3/uL (0-0.2); Eosinophils # (auto) 0 10 ^3/uL (0-0.8); Lymphocytes # (auto) 0.6 10 ^3/uL (0.4-5.4); Monocytes # (auto) 0.7 10 ^3/uL (0-1.3); Monocytes % (auto) 5.6 % (0.0-12.0); Neutrophils # (auto) 10.6 10 ^3/uL (1.6-8.6); Red Blood Cells 5.18 10^6/uL (4.5-5.90); White Blood Cell 11.9 10^3/uL (4.4-10.8)
[2020-01-29 12:22] LABS: Basophils % (auto) 0.2 % (0.0-2.0); Hematocrit 45.9 % (41.0-53.0); Mean Corpuscular Hgb Conc. 28.2 g/dL (32.0-36.0); Mean Corpuscular Volume 88.7 fL (80.0-100.0); Neutrophils % (auto) 89.2 % (37.0-80.0); Nucleated Red Blood Cells % 0.1 %; Platelet Count (auto) 512 10^3/uL (140-450); Red Cell Distribution Width 16.4 % (11.8-14.3)
[2020-01-29] MEDS ORDERED: ONDANSETRON HCL 4 MG/2 ML VIAL IV ONE ×2 (12:30→15:30)
[2020-01-29] MEDS ORDERED: MORPHINE SULF INJ 2 MG/ML SYRINGE 1ML IV ONE ×2 (12:30→15:30)
[2020-01-29] MEDS ORDERED: SODIUM CHLORIDE 0.9% 1,000 ML IV ONE (12:30)
[2020-01-29 12:37] LABS: Albumin 3.8 g/dL (3.4-5.0); Calcium 9.4 mg/dL (8.5-10.1); INR 1.11 (0.9-1.15); Partial Thromboplastin Time 27.1 sec (23.0-31.2)
[2020-01-29 12:45] LABS: BUN/Creatinine Ratio 14.9; Bilirubin, Total 0.6 mg/dL (0.2-1.0); Total Protein 8.3 g/dL (6.4-8.2)
[2020-01-29 12:46] LABS: Amylase 14 U/L (25-115); Lipase 22 U/L (73-393)
[2020-01-29 12:48] LABS: Potassium 5.6 mmol/L (3.5-5.1)
[2020-01-29] MEDS: ACCU-CHEK COMFORT CURVE STRIP VI SCH ×5 (13:31→19:25)
[2020-01-29] MEDS: InsuLIN R (HUMAN) 100 UNITS in SODIUM CHL 0.9% 99 ML IV SCH ×2 (13:31→16:30)
[2020-01-29 14:02] LABS: Urine Bacteria NONE SEEN /hpf (None Seen); Urine Blood 1+ /uL (Negative); Urine Specific Gravity 1.023 (1.001-1.035); Urine WBC <1 /hpf (0 - 3)
[2020-01-29] MEDS ORDERED: PANTOPRAZOLE 40 MG/10 ML VIAL INJ IV ONE ×2 (14:30→18:00)
[2020-01-29] MEDS ORDERED: SODIUM BICARBONATE 8.4 % INJ 50ML VIAL IV ONE ×2 (14:30)
[2020-01-29] MEDS: SODIUM CHLORIDE 0.9% 1,000 ML IV SCH ×2 (14:52→16:58)
[2020-01-29] MEDS ORDERED: NITROGLYCERIN 0.4 MG SL TAB SL PRN ×2 (15:30→18:00)
[2020-01-29] MEDS ORDERED: MORPHINE SULF INJ 2 MG/ML SYRINGE 1ML IV PRN ×2 (15:30→18:00)
[2020-01-29] MEDS ORDERED: SODIUM CHLORIDE 0.9% 1,000 ML IV SCH (16:52)
[2020-01-29] MEDS ORDERED: cefTRIAXone 1GM/50ML D5W 50 ML IV ONE (17:00)
[2020-01-29] MEDS ORDERED: SODIUM CHLORIDE 0.9% 2,000 ML IV ONE (17:00)
[2020-01-29] MEDS ORDERED: InsuLIN R (HUMAN) 100 UNITS in SODIUM CHL 0.9% 99 ML IV SCH ×2 (17:45→18:00)
[2020-01-29] MEDS ORDERED: ONDANSETRON HCL 4 MG/2 ML VIAL IV PRN (18:00)
[2020-01-29] MEDS ORDERED: DOCUSATE SOD 100 MG CAP PO PRN (18:00)
[2020-01-29] MEDS ORDERED: ACETAMINOPHEN 325 MG TAB PO PRN (18:00)
[2020-01-29] MEDS ORDERED: TAMSULOSIN HYDROCHLORIDE 0.4 MG CAP PO SCH (18:00)
[2020-01-29] MEDS ORDERED: ALUM & MAG HYDROX-SIMETH LIQ(MAALOX) 30 ML PO PRN (18:00)
[2020-01-29 18:32] LABS: Calcium 7.9 mg/dL (8.5-10.1); Potassium 3.4 mmol/L (3.5-5.1)
[2020-01-29 18:37] LABS: BUN/Creatinine Ratio 15.8
[2020-01-29 19:33] LABS: Cholesterol 232 mg/dL (< 200); HDL Cholesterol 35 mg/dL (40-59); LDL Cholesterol 145 mg/dL (< 100); Triglycerides 325 mg/dL (< 150)
[2020-01-29] MEDS: traZODone HCL 50 MG TAB PO SCH (21:59)
[2020-01-29] MEDS: LORazepam 0.5 MG TAB PO PRN (21:59)
[2020-01-29] MEDS: IPRATROPIUM BROM 0.5 MG/2.5ML INH SOL NEB PRN (22:16)
[2020-01-29] MEDS: ALBUTEROL SULF 2.5 MG/0.5ML(0.5%) NEB SOLN NEB PRN (22:16)
[2020-01-29] MEDS: GABAPENTIN 300 MG CAP PO SCH (22:24)
[2020-01-29] MEDS: PROPRANOLOL HCL 20 MG TAB PO SCH (22:25)
[2020-01-29] MEDS: ATORVASTATIN 20 MG TAB PO SCH (22:26)
[2020-01-29] MEDS: DEXTROSE (50%) 50ML SYRG IV PRN (22:50)
[2020-01-30 01:08] VITALS: BP 98/58
[2020-01-30 01:29] LABS: BUN/Creatinine Ratio 14.5; Potassium 3.8 mmol/L (3.5-5.1)
[2020-01-30] MEDS: DEXTROSE (50%) 50ML SYRG IV PRN (02:01)
[2020-01-30] MEDS ORDERED: NOREPINEPHRINE 8 MG/250ML KIT 250 ML IV ONE (02:32)
[2020-01-30] MEDS: ACCU-CHEK COMFORT CURVE STRIP VI SCH ×13 (07:30→22:33)
[2020-01-30 09:41] LABS: Basophils # (auto) 0.1 10 ^3/uL (0-0.2); Lymphocytes # (auto) 1.6 10 ^3/uL (0.4-5.4); Monocytes # (auto) 0.5 10 ^3/uL (0-1.3)
[2020-01-30 09:43] LABS: Basophils % (auto) 0.4 % (0.0-2.0); Eosinophils # (auto) 0 10 ^3/uL (0-0.8); Eosinophils % (auto) 0.3 % (0.0-7.0); Hematocrit 43.2 % (41.0-53.0); Hemoglobin 12.9 g/dL (13.5-17.5); Lymphocytes % (auto) 14.1 % (10.0-50.0); Mean Corpuscular Hemoglobin 25.1 pg (28.0-32.0); Mean Corpuscular Hgb Conc. 29.8 g/dL (32.0-36.0); Mean Corpuscular Volume 84.3 fL (80.0-100.0); Monocytes % (auto) 4.3 % (0.0-12.0); Neutrophils # (auto) 9.2 10 ^3/uL (1.6-8.6); Neutrophils % (auto) 80.9 % (37.0-80.0); Platelet Count (auto) 395 10^3/uL (140-450); Red Blood Cells 5.13 10^6/uL (4.5-5.90); Red Cell Distribution Width 16.4 % (11.8-14.3); White Blood Cell 11.4 10^3/uL (4.4-10.8)
[2020-01-30 09:56] LABS: INR 1.05 (0.9-1.15); Partial Thromboplastin Time 27.6 sec (23.0-31.2)
[2020-01-30 09:57] LABS: Potassium 4.9 mmol/L (3.5-5.1)
[2020-01-30 10:13] LABS: Albumin 2.8 g/dL (3.4-5.0); Bilirubin, Total 0.5 mg/dL (0.2-1.0); Calcium 8.2 mg/dL (8.5-10.1); Magnesium 2.2 mg/dL (1.6-2.6); Phosphorus 2.5 mg/dL (2.5-4.90); Total Protein 6.2 g/dL (6.4-8.2); Uric Acid 8.8 mg/dL (3.5-7.2)
[2020-01-30] MEDS: SODIUM CHLORIDE 0.9% 1,000 ML IV SCH ×4 (10:47→21:43)
[2020-01-30] MEDS: cefTRIAXone 1GM/50ML D5W 50 ML IV SCH (10:47)
[2020-01-30] MEDS: PROPRANOLOL HCL 20 MG TAB PO SCH ×2 (10:48→22:32)
[2020-01-30] MEDS: PANTOPRAZOLE 40 MG/10 ML VIAL INJ IV SCH (10:57)
[2020-01-30] MEDS: ENOXAPARIN SOD 40 MG/0.4 ML SYRINGE SC SCH (10:57)
[2020-01-30] MEDS: predniSONE 5 MG TAB PO SCH (10:57)
[2020-01-30] MEDS: ASPirin 81 mg TAB PO SCH (10:57)
[2020-01-30] MEDS ORDERED: InsuLIN R (HUMAN) 100 UNITS in SODIUM CHL 0.9% 99 ML IV SCH (11:15)
[2020-01-30] MEDS: MONTELUKAST SODIUM 10 MG TAB PO SCH ×2 (11:20→22:32)
[2020-01-30] MEDS: GABAPENTIN 300 MG CAP PO SCH ×4 (11:20→22:32)
[2020-01-30 12:53] LABS: Urine Bacteria FEW /hpf (None Seen); Urine Blood Negative /uL (Negative); Urine Mucus FEW (None Seen); Urine Specific Gravity 1.012 (1.001-1.035); Urine WBC <1 /hpf (0 - 3)
[2020-01-30 13:22] LABS: Alcohol, Urine < 3.0 mg/dL (0-10); Amphetamine Screen, Urine POSITIVE (NEGATIVE); Barbiturate Scree,Urine NEGATIVE (NEGATIVE); Benzodiazephine Screen, Urine NEGATIVE (NEGATIVE); Cannabinoid Screen, Urine NEGATIVE (NEGATIVE); Cocaine Screen, Urine NEGATIVE (NEGATIVE); Opiate Scree,Urine NEGATIVE (NEGATIVE); Phencyclidine Screen, Urine NEGATIVE (NEGATIVE)
[2020-01-30] MEDS: HYDROcodone-ACET 5/325MG TAB PO PRN (14:19)
[2020-01-30] MEDS ORDERED: VANCOMYCIN PER PHARMACY 0 MG IV SCH (15:15)
[2020-01-30] MEDS ORDERED: VANCOMYCIN 1GM/250ML 250 ML IV ONE (16:30)
[2020-01-30] MEDS: ATORVASTATIN 20 MG TAB PO SCH (22:31)
[2020-01-30] MEDS: traZODone HCL 50 MG TAB PO SCH (22:31)
[2020-01-31] MEDS: ACCU-CHEK COMFORT CURVE STRIP VI SCH ×9 (00:20→23:45)
[2020-01-31 02:41] LABS: BUN/Creatinine Ratio 12.4; Calcium 7.8 mg/dL (8.5-10.1)
[2020-01-31] MEDS: SODIUM CHLORIDE 0.9% 1,000 ML IV SCH ×4 (04:12→23:57)
[2020-01-31 05:34] LABS: Basophils # (auto) 0 10 ^3/uL (0-0.2); Eosinophils # (auto) 0 10 ^3/uL (0-0.8); Hemoglobin 12.2 g/dL (13.5-17.5); Lymphocytes # (auto) 1.6 10 ^3/uL (0.4-5.4)
[2020-01-31 05:36] LABS: Basophils % (auto) 0.4 % (0.0-2.0); Eosinophils % (auto) 0.4 % (0.0-7.0); Hematocrit 38.3 % (41.0-53.0); Lymphocytes % (auto) 20.4 % (10.0-50.0); Mean Corpuscular Hemoglobin 25.8 pg (28.0-32.0); Mean Corpuscular Hgb Conc. 31.9 g/dL (32.0-36.0); Mean Corpuscular Volume 80.9 fL (80.0-100.0); Monocytes # (auto) 0.4 10 ^3/uL (0-1.3); Monocytes % (auto) 5.4 % (0.0-12.0); Neutrophils # (auto) 5.8 10 ^3/uL (1.6-8.6); Neutrophils % (auto) 73.4 % (37.0-80.0); Nucleated Red Blood Cells % 0.2 %; Platelet Count (auto) 372 10^3/uL (140-450); Red Blood Cells 4.74 10^6/uL (4.5-5.90); Red Cell Distribution Width 15.9 % (11.8-14.3); White Blood Cell 7.9 10^3/uL (4.4-10.8)
[2020-01-31 05:52] LABS: Albumin 2.4 g/dL (3.4-5.0); Potassium 3.6 mmol/L (3.5-5.1)
[2020-01-31 05:57] LABS: BUN/Creatinine Ratio 11.1; Bilirubin, Total 0.6 mg/dL (0.2-1.0); Total Protein 5.5 g/dL (6.4-8.2)
[2020-01-31] MEDS: GABAPENTIN 300 MG CAP PO SCH ×3 (06:11→22:34)
[2020-01-31] MEDS ORDERED: INSULIN LANTUS (GLARGINE) 1 /0.01ml (100units/ml) SC ONE (07:45)
[2020-01-31] MEDS ORDERED: DEXTROSE (50%) 50ML SYRG IV PRN ×2 (08:15)
[2020-01-31] MEDS: ALBUTEROL SULF 2.5 MG/0.5ML(0.5%) NEB SOLN NEB PRN (08:29)
[2020-01-31] MEDS: IPRATROPIUM BROM 0.5 MG/2.5ML INH SOL NEB PRN (08:30)
[2020-01-31] MEDS: PANTOPRAZOLE 40 MG/10 ML VIAL INJ IV SCH (09:27)
[2020-01-31] MEDS: cefTRIAXone 1GM/50ML D5W 50 ML IV SCH (09:27)
[2020-01-31] MEDS: ASPirin 81 mg TAB PO SCH (09:28)
[2020-01-31] MEDS: predniSONE 5 MG TAB PO SCH (09:28)
[2020-01-31] MEDS: PROPRANOLOL HCL 20 MG TAB PO SCH ×2 (09:28→22:00)
[2020-01-31] MEDS: ENOXAPARIN SOD 40 MG/0.4 ML SYRINGE SC SCH (09:29)
[2020-01-31] MEDS: MORPHINE SULF INJ 2 MG/ML SYRINGE 1ML IV PRN ×3 (10:54→20:30)
[2020-01-31 11:00] VITALS: BP 116/73
[2020-01-31] MEDS ORDERED: InsuLIN REG 1unit/0.01ml Soln (100units/ml) SC SCH (11:30)
[2020-01-31] MEDS ORDERED: ACCU-CHEK COMFORT CURVE STRIP VI SCH (11:30)
[2020-01-31] MEDS ORDERED: OMNIPAQUE ORAL SOLN 500ml 12mg/ml PO ONE (11:56)
[2020-01-31] MEDS: InsuLIN REG 1unit/0.01ml Soln (100units/ml) SC SCH ×4 (12:33→23:49)
[2020-01-31] MEDS ORDERED: MYCO1TAB2 PO (14:07)
[2020-01-31 16:23] VITALS: BP 110/68
[2020-01-31] MEDS ORDERED: IOHEXOL 300 MG/ML 100ML BOTTLE IJ ONE (16:24)
[2020-01-31] MEDS: VANCOMYCIN 1GM/250ML 250 ML IV SCH (16:53)
[2020-01-31 22:00] VITALS: BP 99/62
[2020-01-31] MEDS: traZODone HCL 50 MG TAB PO SCH (22:00)
[2020-01-31] MEDS: MYCOPHENOLATE 360 MG PO SCH (22:33)
[2020-01-31] MEDS: MONTELUKAST SODIUM 10 MG TAB PO SCH (22:34)
[2020-01-31] MEDS: TACROLIMUS 1 MG CAP PO SCH (22:34)
[2020-01-31] MEDS: ATORVASTATIN 20 MG TAB PO SCH (22:34)
[2020-02-01] VITALS (7 sets, daily range): BP systolic 100–130; BP diastolic 66–82
[2020-02-01] MEDS: MORPHINE SULF INJ 2 MG/ML SYRINGE 1ML IV PRN ×3 (01:18→20:36)
[2020-02-01] MEDS: ACCU-CHEK COMFORT CURVE STRIP VI SCH ×6 (03:56→23:56)
[2020-02-01] MEDS: InsuLIN REG 1unit/0.01ml Soln (100units/ml) SC SCH ×6 (04:00→23:56)
[2020-02-01] MEDS: SODIUM CHLORIDE 0.9% 1,000 ML IV SCH ×3 (05:00→20:12)
[2020-02-01] MEDS: GABAPENTIN 300 MG CAP PO SCH ×3 (06:13→21:56)
[2020-02-01] MEDS: cefTRIAXone 1GM/50ML D5W 50 ML IV SCH (08:57)
[2020-02-01] MEDS: PANTOPRAZOLE 40 MG/10 ML VIAL INJ IV SCH (08:58)
[2020-02-01] MEDS: ENOXAPARIN SOD 40 MG/0.4 ML SYRINGE SC SCH (08:58)
[2020-02-01] MEDS: predniSONE 5 MG TAB PO SCH (08:58)
[2020-02-01] MEDS: ASPirin 81 mg TAB PO SCH (08:58)
[2020-02-01] MEDS: MYCOPHENOLATE 360 MG PO SCH ×2 (09:16→21:55)
[2020-02-01] MEDS: PROPRANOLOL HCL 20 MG TAB PO SCH ×2 (09:16→21:56)
[2020-02-01] MEDS: TACROLIMUS 1 MG CAP PO SCH ×2 (09:16→22:01)
[2020-02-01] MEDS ORDERED: INSULIN LANTUS (GLARGINE) 1 /0.01ml (100units/ml) SC SCH (10:00)
[2020-02-01] MEDS ORDERED: LIDOCAINE VISCOUS 2% 15ML UD ONE (10:13)
[2020-02-01] MEDS ORDERED: SODIUM CHLORIDE LOCK 10 ML ONE (10:13)
[2020-02-01] MEDS ORDERED: fentaNYL CITRATE 100 MCG/2 ML VL ONE (10:14)
[2020-02-01] MEDS ORDERED: diphenhdrAMINE HCL 50 MG/1 ML VL ONE (10:14)
[2020-02-01] MEDS ORDERED: METOCLOPRAMIDE HCL 5MG/ml INJ 2ml VIAL IV ONE (10:45)
[2020-02-01] MEDS: INSULIN LANTUS (GLARGINE) 1 /0.01ml (100units/ml) SC SCH (12:01)
[2020-02-01 12:30] LABS: Basophils # (auto) 0 10 ^3/uL (0-0.2); Basophils % (auto) 0.4 % (0.0-2.0); Eosinophils # (auto) 0 10 ^3/uL (0-0.8); Eosinophils % (auto) 0.5 % (0.0-7.0); Lymphocytes # (auto) 1.2 10 ^3/uL (0.4-5.4); Mean Corpuscular Hemoglobin 25.1 pg (28.0-32.0); Monocytes # (auto) 0.4 10 ^3/uL (0-1.3); Red Cell Distribution Width 15.8 % (11.8-14.3)
[2020-02-01 12:32] LABS: Hematocrit 35.7 % (41.0-53.0); Hemoglobin 11.2 g/dL (13.5-17.5); Lymphocytes % (auto) 21.6 % (10.0-50.0); Mean Corpuscular Hgb Conc. 31.3 g/dL (32.0-36.0); Mean Corpuscular Volume 80.1 fL (80.0-100.0); Monocytes % (auto) 7.2 % (0.0-12.0); Neutrophils # (auto) 3.8 10 ^3/uL (1.6-8.6); Neutrophils % (auto) 70.3 % (37.0-80.0); Platelet Count (auto) 288 10^3/uL (140-450); Red Blood Cells 4.46 10^6/uL (4.5-5.90); White Blood Cell 5.4 10^3/uL (4.4-10.8)
[2020-02-01 12:47] LABS: Albumin 2.2 g/dL (3.4-5.0); Calcium 7.7 mg/dL (8.5-10.1); Potassium 3.6 mmol/L (3.5-5.1)
[2020-02-01 12:49] LABS: BUN/Creatinine Ratio 9.4
[2020-02-01 12:51] LABS: Bilirubin, Total 0.2 mg/dL (0.2-1.0); Total Protein 5.6 g/dL (6.4-8.2)
[2020-02-01] MEDS: MIDAZOLAM HCL 5 MG/ML-1ML VIAL ONE ×2 (13:37→13:40)
[2020-02-01] MEDS: VANCOMYCIN 1GM/250ML 250 ML IV SCH (17:15)
[2020-02-01] MEDS: SUCRALFATE 1 GM/10 ML ORAL SUSP PO SCH ×2 (17:16→21:55)
[2020-02-01] MEDS: ALBUTEROL SULF 2.5 MG/0.5ML(0.5%) NEB SOLN NEB PRN (20:59)
[2020-02-01] MEDS: IPRATROPIUM BROM 0.5 MG/2.5ML INH SOL NEB PRN (20:59)
[2020-02-01] MEDS: traZODone HCL 50 MG TAB PO SCH (21:55)
[2020-02-01] MEDS: ATORVASTATIN 20 MG TAB PO SCH (21:56)
[2020-02-01] MEDS: MONTELUKAST SODIUM 10 MG TAB PO SCH (21:58)
[2020-02-01] MEDS: LORazepam 0.5 MG TAB PO PRN (23:27)
[2020-02-02] VITALS (9 sets, daily range): BP systolic 114–136; BP diastolic 76–89
[2020-02-02] MEDS: HYDROcodone-ACET 5/325MG TAB PO PRN ×2 (00:45→23:40)
[2020-02-02] MEDS ORDERED: diphenhdrAMINE HCL 25 MG CAP PO ONE (02:45)
[2020-02-02] MEDS: SODIUM CHLORIDE 0.9% 1,000 ML IV SCH ×4 (02:52→22:52)
[2020-02-02] MEDS: MORPHINE SULF INJ 2 MG/ML SYRINGE 1ML IV PRN ×3 (03:46→20:22)
[2020-02-02] MEDS: InsuLIN REG 1unit/0.01ml Soln (100units/ml) SC SCH ×6 (03:51→23:50)
[2020-02-02] MEDS: ACCU-CHEK COMFORT CURVE STRIP VI SCH ×6 (03:52→23:50)
[2020-02-02] MEDS: GABAPENTIN 300 MG CAP PO SCH ×3 (05:30→21:44)
[2020-02-02] MEDS: SUCRALFATE 1 GM/10 ML ORAL SUSP PO SCH ×4 (06:01→21:43)
[2020-02-02] MEDS: cefTRIAXone 1GM/50ML D5W 50 ML IV SCH (08:54)
[2020-02-02] MEDS: PROPRANOLOL HCL 20 MG TAB PO SCH ×2 (09:09→21:44)
[2020-02-02] MEDS: ENOXAPARIN SOD 40 MG/0.4 ML SYRINGE SC SCH (09:09)
[2020-02-02] MEDS: predniSONE 5 MG TAB PO SCH (09:48)
[2020-02-02] MEDS: INSULIN LANTUS (GLARGINE) 1 /0.01ml (100units/ml) SC SCH (09:49)
[2020-02-02] MEDS: PANTOPRAZOLE 40 MG/10 ML VIAL INJ IV SCH (09:51)
[2020-02-02] MEDS: ASPirin 81 mg TAB PO SCH (09:51)
[2020-02-02] MEDS: MYCOPHENOLATE 360 MG PO SCH ×2 (10:59→21:43)
[2020-02-02] MEDS: TACROLIMUS 1 MG CAP PO SCH ×2 (10:59→21:45)
[2020-02-02 12:19] LABS: Hepatitis A Ab IgM Negative; Hepatitis B Core IgM Negative; Hepatitis B Surface Antigen Negative (Negative)
[2020-02-02 12:20] LABS: Hepatitis C Antibody Negative (Negative)
[2020-02-02] MEDS ORDERED: MIDAZOLAM HCL 1MG/1ML-2 ML VIAL ONE (14:53)
[2020-02-02] MEDS ORDERED: fentaNYL CITRATE 100 MCG/2 ML VL ONE (14:54)
[2020-02-02] MEDS ORDERED: LIDOCAINE 2%HCL (LOCAL ANESTH.) INJ 20ML MDV ONE (16:45)
[2020-02-02] MEDS: VANCOMYCIN 1GM/250ML 250 ML IV SCH (17:30)
[2020-02-02] MEDS: traZODone HCL 50 MG TAB PO SCH (21:43)
[2020-02-02] MEDS: ATORVASTATIN 20 MG TAB PO SCH (21:44)
[2020-02-02] MEDS: MONTELUKAST SODIUM 10 MG TAB PO SCH (21:45)
[2020-02-03] MEDS: InsuLIN REG 1unit/0.01ml Soln (100units/ml) SC SCH ×3 (04:16→12:00)
[2020-02-03] MEDS: ACCU-CHEK COMFORT CURVE STRIP VI SCH ×3 (04:17→12:00)
[2020-02-03 04:37] VITALS: BP 114/69
[2020-02-03] MEDS: SODIUM CHLORIDE 0.9% 1,000 ML IV SCH ×2 (05:42→12:12)
[2020-02-03] MEDS: GABAPENTIN 300 MG CAP PO SCH (05:42)
[2020-02-03] MEDS: SUCRALFATE 1 GM/10 ML ORAL SUSP PO SCH ×2 (06:06→11:30)
[2020-02-03] MEDS: cefTRIAXone 1GM/50ML D5W 50 ML IV SCH (08:08)
[2020-02-03] MEDS: ALBUTEROL SULF 2.5 MG/0.5ML(0.5%) NEB SOLN NEB PRN (08:52)
[2020-02-03] MEDS: IPRATROPIUM BROM 0.5 MG/2.5ML INH SOL NEB PRN (08:52)
[2020-02-03 09:00] VITALS: BP 131/85
[2020-02-03] MEDS: ENOXAPARIN SOD 40 MG/0.4 ML SYRINGE SC SCH (10:00)
[2020-02-03] MEDS: INSULIN LANTUS (GLARGINE) 1 /0.01ml (100units/ml) SC SCH (10:15)
[2020-02-03 10:36] LABS: Basophils # (auto) 0.1 10 ^3/uL (0-0.2); Eosinophils # (auto) 0.1 10 ^3/uL (0-0.8); Hemoglobin 12.3 g/dL (13.5-17.5); Monocytes # (auto) 0.6 10 ^3/uL (0-1.3); Neutrophils # (auto) 5.1 10 ^3/uL (1.6-8.6)
[2020-02-03 10:38] LABS: Basophils % (auto) 1.3 % (0.0-2.0); Eosinophils % (auto) 1.3 % (0.0-7.0); Hematocrit 37.9 % (41.0-53.0); Lymphocytes # (auto) 1.6 10 ^3/uL (0.4-5.4); Lymphocytes % (auto) 21.6 % (10.0-50.0); Mean Corpuscular Hemoglobin 25.6 pg (28.0-32.0); Mean Corpuscular Hgb Conc. 32.4 g/dL (32.0-36.0); Mean Corpuscular Volume 79.1 fL (80.0-100.0); Monocytes % (auto) 7.6 % (0.0-12.0); Neutrophils % (auto) 68.2 % (37.0-80.0); Nucleated Red Blood Cells % 0.1 %; Platelet Count (auto) 269 10^3/uL (140-450); Red Blood Cells 4.79 10^6/uL (4.5-5.90); Red Cell Distribution Width 15.5 % (11.8-14.3); White Blood Cell 7.5 10^3/uL (4.4-10.8)
[2020-02-03] MEDS: PANTOPRAZOLE 40 MG/10 ML VIAL INJ IV SCH (10:43)
[2020-02-03] MEDS: ASPirin 81 mg TAB PO SCH (10:43)
[2020-02-03] MEDS: TACROLIMUS 1 MG CAP PO SCH (10:44)
[2020-02-03] MEDS: PROPRANOLOL HCL 20 MG TAB PO SCH (10:44)
[2020-02-03] MEDS: predniSONE 5 MG TAB PO SCH (10:44)
[2020-02-03] MEDS: MYCOPHENOLATE 360 MG PO SCH (10:44)
[2020-02-03 10:48] LABS: BUN/Creatinine Ratio 16.3; Calcium 8.7 mg/dL (8.5-10.1); Potassium 3.8 mmol/L (3.5-5.1)
[2020-02-03 11:34] VITALS: BP 131/85
[2020-02-03 12:34] VITALS: BP 125/85
== END 2020-02-03 12:50 | disposition home or self-care (01) | DRG 853 ==
LOC: EDBD 11:30 → ER 11:30 → EDUNIT# 11:30 → TELE 11:31 → TELE-WESTW 01-31 10:03
PROVIDERS: ADMIT Hospitalist; ATTEND Family Medicine
PROC: 0DB88ZX Excision of Small Intestine, Via Natural or Artificial Opening Endoscopic, Diagnostic (ICD-10-PCS; 2020-02-01)
PROC: 0DB68ZX Excision of Stomach, Via Natural or Artificial Opening Endoscopic, Diagnostic (ICD-10-PCS; principal; 2020-02-01 13:31)
PROC: 07BC3ZX Excision of Pelvis Lymphatic, Percutaneous Approach, Diagnostic (ICD-10-PCS; 2020-02-02)
PROC: BW2GZZZ Computerized Tomography (CT Scan) of Pelvic Region (ICD-10-PCS; 2020-02-02)
DX: A41.9 Sepsis, unspecified organism (principal); E10.10 Type 1 diabetes mellitus with ketoacidosis without coma; N17.0 Acute kidney failure with tubular necrosis; E87.1 Hypo-osmolality and hyponatremia; E44.0 Moderate protein-calorie malnutrition; N39.0 Urinary tract infection, site not specified; K22.10 Ulcer of esophagus without bleeding; Z94.83 Pancreas transplant status; E87.5 Hyperkalemia; E10.22 Type 1 diabetes mellitus with diabetic chronic kidney disease; E10.40 Type 1 diabetes mellitus with diabetic neuropathy, unspecified; J44.9 Chronic obstructive pulmonary disease, unspecified; E78.5 Hyperlipidemia, unspecified; F10.10 Alcohol abuse, uncomplicated; F17.200 Nicotine dependence, unspecified, uncomplicated; F29 Unspecified psychosis not due to a substance or known physiological condition; F32.9 Major depressive disorder, single episode, unspecified; F41.9 Anxiety disorder, unspecified; N20.0 Calculus of kidney; I12.9 Hypertensive chronic kidney disease with stage 1 through stage 4 chronic kidney disease, or unspecified chronic kidney disease; N18.9 Chronic kidney disease, unspecified; K29.70 Gastritis, unspecified, without bleeding; K44.9 Diaphragmatic hernia without obstruction or gangrene; K21.9 Gastro-esophageal reflux disease without esophagitis; I25.10 Atherosclerotic heart disease of native coronary artery without angina pectoris; N40.0 Benign prostatic hyperplasia without lower urinary tract symptoms; Z79.4 Long term (current) use of insulin; Z91.19 Patient's noncompliance with other medical treatment and regimen; Z79.82 Long term (current) use of aspirin; Z79.899 Other long term (current) drug therapy; Z80.0 Family history of malignant neoplasm of digestive organs; Z82.49 Family history of ischemic heart disease and other diseases of the circulatory system; Z82.79 Family history of other congenital malformations, deformations and chromosomal abnormalities; Z83.3 Family history of diabetes mellitus; Z85.038 Personal history of other malignant neoplasm of large intestine; Z85.828 Personal history of other malignant neoplasm of skin; Z87.19 Personal history of other diseases of the digestive system; Z91.14 Patient's other noncompliance with medication regimen; Z95.5 Presence of coronary angioplasty implant and graft; R59.1 Generalized enlarged lymph nodes
CPT/HCPCS: 10022; 36415; 43239; 71045; 74150; 74176; 74177; 77012; 80048; 80053; 80061; 80074; 80307; 81001; 82140; 82150; 82962; 83036; 83605; 83690; 83735; 83880; 84100; 84443; 84484; 84550; 85025; 85610; 85730; 86308; 87040; 94640; 99291; C9113; G0378; J0696; J1815; J2250; J2405; J7507

== ENCOUNTER 2020-03-28 14:01 | Inpatient (IN) | payer MEDICARE, MEDICAID ==
[~2020-03-28] VITALS: Ht 160 cm; Wt 57.8 kg
[~2020-03-28 14:01] MED LIST changes: +MYCO1TAB2 PO
[2020-03-28] MEDS ORDERED: ACETAMINOPHEN 500 MG TAB PO ONE (14:30)
[2020-03-28] MEDS ORDERED: SODIUM CHLORIDE 0.9% 1,000 ML IV ONE ×2 (14:30→17:30)
[2020-03-28 14:44] LABS: Basophils # (auto) 0 10 ^3/uL (0-0.2); Basophils % (auto) 0.6 % (0.0-2.0); Eosinophils # (auto) 0 10 ^3/uL (0-0.8); Eosinophils % (auto) 0.4 % (0.0-7.0); Hemoglobin 13.2 g/dL (13.5-17.5); Lymphocytes # (auto) 0.9 10 ^3/uL (0.4-5.4); Monocytes # (auto) 0.1 10 ^3/uL (0-1.3)
[2020-03-28 14:46] LABS: Hematocrit 41.4 % (41.0-53.0); Lymphocytes % (auto) 12.2 % (10.0-50.0); Mean Corpuscular Hemoglobin 25.2 pg (28.0-32.0); Mean Corpuscular Hgb Conc. 31.9 g/dL (32.0-36.0); Monocytes % (auto) 1.9 % (0.0-12.0); Neutrophils # (auto) 6.1 10 ^3/uL (1.6-8.6); Neutrophils % (auto) 84.9 % (37.0-80.0); Platelet Count (auto) 355 10^3/uL (140-450); Red Blood Cells 5.24 10^6/uL (4.5-5.90); Red Cell Distribution Width 15.2 % (11.8-14.3); White Blood Cell 7.2 10^3/uL (4.4-10.8)
[2020-03-28 15:12] LABS: Albumin 2.8 g/dL (3.4-5.0); BUN/Creatinine Ratio 11.3; Calcium 8.2 mg/dL (8.5-10.1); Potassium 3.2 mmol/L (3.5-5.1)
[2020-03-28 15:15] LABS: Bilirubin, Total 0.4 mg/dL (0.2-1.0); Total Protein 6.6 g/dL (6.4-8.2)
[2020-03-28] MEDS ORDERED: SODIUM CHLORIDE 0.9% 1,000 ML IVB ONE (16:00)
[2020-03-28 16:09] LABS: Urine Bacteria NONE SEEN /hpf (None Seen); Urine Blood 2+ /uL (Negative); Urine Specific Gravity 1.023 (1.001-1.035); Urine WBC 2 /hpf (0 - 3)
[2020-03-28 16:18] LABS: Alcohol, Urine < 3.0 mg/dL (0-10); Amphetamine Screen, Urine POSITIVE (NEGATIVE); Barbiturate Scree,Urine NEGATIVE (NEGATIVE); Benzodiazephine Screen, Urine NEGATIVE (NEGATIVE); Cannabinoid Screen, Urine POSITIVE (NEGATIVE); Cocaine Screen, Urine NEGATIVE (NEGATIVE); Phencyclidine Screen, Urine NEGATIVE (NEGATIVE)
[2020-03-28 16:23] LABS: Amylase 24 U/L (25-115); Lipase 167 U/L (73-393)
[2020-03-28 16:24] LABS: Opiate Scree,Urine NEGATIVE (NEGATIVE)
[2020-03-28] MEDS ORDERED: InsuLIN REG 1unit/0.01ml Soln (100units/ml) IV ONE (17:30)
[2020-03-28] MEDS ORDERED: SALINE 0.65 % NASAL SPRAY 45ML BOTTLE EACHNOSTRI ONE (17:30)
[2020-03-28] MEDS ORDERED: InsuLIN REG 1unit/0.01ml Soln (100units/ml) SC ONE (17:30)
[2020-03-28] MEDS ORDERED: ACETAMINOPHEN 325 MG TAB PO PRN (21:00)
[2020-03-28] MEDS ORDERED: POTASSIUM CHL 20 Meq TABLET PO ONE (21:00)
[2020-03-28] MEDS ORDERED: TEMAZEPAM 15 MG CAP PO PRN (21:00)
[2020-03-28] MEDS ORDERED: ONDANSETRON HCL 4 MG/2 ML VIAL IV PRN (21:00)
[2020-03-28] MEDS ORDERED: cefTRIAXone 1GM/50ML D5W 50 ML IV ONE (21:00)
[2020-03-28] MEDS ORDERED: DEXTROSE (50%) 50ML SYRG IV PRN (21:00)
[2020-03-28] MEDS ORDERED: NITROGLYCERIN 0.4 MG SL TAB SL PRN (21:45)
[2020-03-28] MEDS ORDERED: MORPHINE SULF INJ 2 MG/ML SYRINGE 1ML IV PRN (21:45)
[2020-03-28] MEDS: SODIUM CHLORIDE 0.9% 1,000 ML IV SCH (21:49)
[2020-03-28] MEDS ORDERED: ATORVASTATIN 20 MG TAB PO SCH (22:00)
[2020-03-28] MEDS ORDERED: MYCOPHENOLATE 250 MG CAP PO SCH ×2 (22:00→22:30)
[2020-03-28] MEDS ORDERED: TACROLIMUS 1 MG CAP PO SCH (22:00)
--- NOTE | 2020-03-28 22:23 | NUR ---
MS/TELE SOC AND ADMISSION SOC ENTERED AT 2041 IN ERROR.
[2020-03-28] MEDS: GEMFIBROZIL 600 MG TAB PO SCH (22:42)
[2020-03-28] MEDS: FAMOTIDINE 20 MG TAB PO SCH (22:42)
[2020-03-28] MEDS: MONTELUKAST SODIUM 10 MG TAB PO SCH (22:43)
[2020-03-28] MEDS: ATORVASTATIN 20 MG TAB PO SCH (22:43)
[2020-03-28] MEDS: MYCOPHENOLATE 1000mg/5ml ORALsusp 200mg/ml PO SCH (22:48)
[2020-03-28] MEDS: TACROLIMUS 1 MG CAP PO SCH (22:48)
--- NOTE | 2020-03-28 23:30 | NUR ---
Telemetry admit from [facility] LOMELI admitted to Telemetry unit after SBAR received. Patient oriented to Gaurav velasquez RN, unit, room 237, bed A, and unit policies regarding patient care and visiting hours. Patient now on continuous telemetry monitoring, tele box #4 and telemetry reading on arrival to unit is [facility] 112. Patient VS taken, weighed by bedscale and encouraged to call if they need something. All questions and concerns addressed, patient verbalized understanding.
[2020-03-29] VITALS (8 sets, daily range): BP systolic 95–115; BP diastolic 53–69
[2020-03-29] MEDS: ACCU-CHEK COMFORT CURVE STRIP VI SCH ×5 (00:27→23:37)
--- NOTE | 2020-03-29 00:30 | NUR ---
Patient has been kept under cooling measures with ice packs under arms. Patient was 103.1 upon arrival and 102.2 after recheck. Will continue to monitor.
[2020-03-29] MEDS: InsuLIN REG 1unit/0.01ml Soln (100units/ml) SC SCH ×5 (00:35→23:38)
--- NOTE | 2020-03-29 03:52 | NUR ---
Upon recheck, temp is now at 98.5 and HR is at 92 bpm. Will continue to monitor.
--- NOTE | 2020-03-29 05:00 | NUR ---
Endorsed care and report given to Zahida MCCLELLAN. No signs of distress when transferring patient to other unit.
--- NOTE | 2020-03-29 05:03 | NUR ---
Pt arrived on unit from [place] Pt arrived on [facility], Rm 271-B, oriented to this RN. Report received from Gaurav MCCLELLAN. Upon assessment, pt is sleeping but easily arousable to name. Pt oriented to unit and room. Safety measures in place, bed in lowest locked position, bed rails raised x2, call light within reach. All questions and concerns addressed at this time. Will continue to monitor q1h and PRN
--- NOTE | 2020-03-29 06:42 | NUR ---
Hospitalist paged for HR sustaining in 160s. EKG attempted, pt unable to stay still for accurate EKG. Pt states he is extremely cold. Temperature noted as 100.5, Tylenol administered as prescribed. Pt states pain 10/10 over entire body. Awaiting call back from hospitalist.
[2020-03-29 08:18] LABS: Basophils # (auto) 0 10 ^3/uL (0-0.2); Eosinophils # (auto) 0 10 ^3/uL (0-0.8); Hematocrit 37.8 % (41.0-53.0); Lymphocytes # (auto) 0.3 10 ^3/uL (0.4-5.4); Monocytes # (auto) 0 10 ^3/uL (0-1.3)
[2020-03-29 08:19] LABS: Basophils % (auto) 0.4 % (0.0-2.0); Eosinophils % (auto) 0.1 % (0.0-7.0); Hemoglobin 12.2 g/dL (13.5-17.5); Lymphocytes % (auto) 4.1 % (10.0-50.0); Mean Corpuscular Hemoglobin 25.2 pg (28.0-32.0); Mean Corpuscular Hgb Conc. 32.2 g/dL (32.0-36.0); Mean Corpuscular Volume 78.1 fL (80.0-100.0); Monocytes % (auto) 0.6 % (0.0-12.0); Neutrophils % (auto) 94.8 % (37.0-80.0); Platelet Count (auto) 223 10^3/uL (140-450); Red Blood Cells 4.84 10^6/uL (4.5-5.90); Red Cell Distribution Width 15.6 % (11.8-14.3); White Blood Cell 7.4 10^3/uL (4.4-10.8)
[2020-03-29 08:29] LABS: Potassium 3.9 mmol/L (3.5-5.1)
[2020-03-29 08:37] LABS: Albumin 2.3 g/dL (3.4-5.0); BUN/Creatinine Ratio 11.4; Bilirubin, Total 0.6 mg/dL (0.2-1.0); Calcium 7.5 mg/dL (8.5-10.1); Total Protein 5.7 g/dL (6.4-8.2)
[2020-03-29] MEDS: predniSONE 5 MG TAB PO SCH (09:28)
[2020-03-29] MEDS: ASPirin 81 mg TAB PO SCH (09:28)
[2020-03-29] MEDS: SODIUM CHLORIDE 0.9% 1,000 ML IV SCH ×2 (09:29→23:27)
[2020-03-29] MEDS: FINASTERIDE 5 MG TAB PO SCH (09:29)
[2020-03-29] MEDS: TACROLIMUS 1 MG CAP PO SCH ×2 (09:29→21:45)
[2020-03-29] MEDS: GEMFIBROZIL 600 MG TAB PO SCH ×2 (09:29→21:45)
[2020-03-29] MEDS: HYDROcodone-ACET 5/325MG TAB PO PRN ×2 (09:30→19:50)
[2020-03-29] MEDS ORDERED: MYCOPHENOLATE 250 MG CAP PO SCH (10:00)
[2020-03-29] MEDS: MYCOPHENOLATE 1000mg/5ml ORALsusp 200mg/ml PO SCH ×2 (10:00→21:44)
[2020-03-29] MEDS ORDERED: TACROLIMUS 1 MG CAP PO SCH (10:00)
--- NOTE | 2020-03-29 11:16 | NUR ---
NOTIFIED DR. DELEON OF PT'S BLOOD CULTURE IS POSITIVE FOR GRAM (-) RODS.
--- NOTE | 2020-03-29 15:44 | NUR ---
PT STATED " I TAKE ALBUTEROL AT HOME". DR. DELEON NOTIFIED, OBTAINED NEW ORDER ALBUTEROL MEDNEB 2.5MG Q4HRWA. ORDER READ BACK AND VERIFIED, WILL PUT IN ORDER.
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
[2020-03-29] MEDS: ALBUTEROL SULF 2.5 MG/0.5ML(0.5%) NEB SOLN NEB SCH ×2 (19:09→22:36)
--- NOTE | 2020-03-29 19:15 | NUR ---
Opening Shift Note Assumed care of patient, asleep, easily arousable. No S/S of distress/SOB or pain. Per day RN, patient has been afebrile all day with HR WNL. Safety measures in place, bed in lowest locked position, bed rails raised x2, call light within reach. Instructed on POC and to call for assist PRN, will continue to monitor for changes Q1hr and PRN.
--- NOTE | 2020-03-29 19:50 | NUR ---
Pt complaining of pain in joints, shaking uncontrollably, and cold. Temp measured at 98, recheck 97. Pt given blanket. BS checked, reading at 419. BS rechecked, reading at 366. Spoke with hospitalist Bj. Orders received and being carried out. Will continue to monitor.
--- NOTE | 2020-03-29 20:53 | NUR ---
FASTENER SEWING MACHINE OPERATOR reports temp of 100.2. Blankets removed. Cooling measures in place.
[2020-03-29] MEDS: cefTRIAXone 1GM/50ML D5W 50 ML IV SCH (21:29)
[2020-03-29] MEDS: INSULIN LANTUS (GLARGINE) 1 /0.01ml (100units/ml) SC SCH (21:31)
[2020-03-29] MEDS: ATORVASTATIN 20 MG TAB PO SCH (21:44)
[2020-03-29] MEDS: FAMOTIDINE 20 MG TAB PO SCH (21:45)
[2020-03-29] MEDS: MONTELUKAST SODIUM 10 MG TAB PO SCH (21:45)
[2020-03-30 00:58] VITALS: BP 105/57
[2020-03-30 05:00] VITALS: BP 95/67
[2020-03-30] MEDS: ALBUTEROL SULF 2.5 MG/0.5ML(0.5%) NEB SOLN NEB SCH ×5 (06:00→22:00)
--- NOTE | 2020-03-30 06:00 | NUR ---
Respiratory note: PT SLEEPING AND SAID HE DID NOT WANT TO TAKE MED NEB TREATMENT. PT IN NO DISTRESS AT THIS TIME.
[2020-03-30] MEDS: HYDROcodone-ACET 5/325MG TAB PO PRN (06:39)
[2020-03-30] MEDS: ACCU-CHEK COMFORT CURVE STRIP VI SCH ×4 (06:39→20:08)
[2020-03-30] MEDS: InsuLIN REG 1unit/0.01ml Soln (100units/ml) SC SCH ×4 (06:50→20:09)
[2020-03-30 09:02] VITALS: BP 108/74
[2020-03-30] MEDS: predniSONE 5 MG TAB PO SCH (09:40)
[2020-03-30] MEDS: ASPirin 81 mg TAB PO SCH (09:40)
[2020-03-30] MEDS: FINASTERIDE 5 MG TAB PO SCH (09:40)
[2020-03-30] MEDS: TACROLIMUS 1 MG CAP PO SCH ×2 (09:40→22:25)
[2020-03-30] MEDS: MYCOPHENOLATE 1000mg/5ml ORALsusp 200mg/ml PO SCH ×2 (09:40→22:11)
[2020-03-30] MEDS: GEMFIBROZIL 600 MG TAB PO SCH ×2 (09:40→22:12)
[2020-03-30] MEDS ORDERED: DEXTROSE (50%) 50ML SYRG IV PRN (10:15)
[2020-03-30] MEDS: INSULIN LANTUS (GLARGINE) 1 /0.01ml (100units/ml) SC SCH ×2 (10:36→22:13)
[2020-03-30 12:30] VITALS: BP 99/62
[2020-03-30] MEDS: ALPRAZolam 0.5 MG TAB PO PRN (13:47)
[2020-03-30] MEDS: SODIUM CHLORIDE 0.9% 1,000 ML IV SCH (14:46)
--- NOTE | 2020-03-30 16:12 | NUR ---
Critical blood glucose (401) reported to Dr. Gibbs with low bp of 82/50. Dr. Gibbs gave a verbal one time order for 1,000ml bolus of NS to be given over 2 hrs and IV fluid to be increased from NS @75ml/hr to NS@150ml/hr continuously.
[2020-03-30] MEDS ORDERED: SODIUM CHLORIDE 0.9% 1,750 ML IV ONE (16:30)
[2020-03-30] MEDS ORDERED: SODIUM CHLORIDE 0.9% 1,000 ML IV ONE (16:30)
[2020-03-30 16:40] VITALS: BP 87/58
[2020-03-30] MEDS: SALINE 0.65 % NASAL SPRAY 45ML BOTTLE EACHNOSTRI SCH ×2 (18:45→22:00)
[2020-03-30] MEDS ORDERED: INSULIN LANTUS (GLARGINE) 1 /0.01ml (100units/ml) SC ONE (19:00)
--- NOTE | 2020-03-30 20:23 | NUR ---
Paged hospitalist regarding elevated blood sugar. First blood sugar check 423. Immediate repeat blood sugar check 473. 20 units of regular insulin administered.
[2020-03-30 22:00] VITALS: BP 101/73
[2020-03-30] MEDS: cefTRIAXone 1GM/50ML D5W 50 ML IV SCH (22:11)
[2020-03-30] MEDS: FAMOTIDINE 20 MG TAB PO SCH (22:12)
[2020-03-30] MEDS: ATORVASTATIN 20 MG TAB PO SCH (22:12)
[2020-03-30] MEDS: MONTELUKAST SODIUM 10 MG TAB PO SCH (22:12)
--- NOTE | 2020-03-30 22:25 | NUR ---
PT UPSET AND REFUSED MN TX. PT WILL CALL WHEN TX NEEDED
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
--- NOTE | 2020-03-30 22:45 | NUR ---
Patient was yelling and standing outside his room while speaking with Dr. Swartz, and the patient was asking why Dr. Swartz is asking about his past medical history that does not pertain to his current stay. "Why do you need to know about my past. That doesn't matter. I'm here for an infection, not for my gastroparesis. I want a sandwich!" Dr. Swartz tried to deescalate the situation and explain why he is talking to the patient and that we will look at getting him something to eat. An RN explained the reason to the patient for moderating food while having elevated blood sugars. The patient stated, "I don't care, I'm hungry. The day nurses were giving me whatever I wanted and the doctor said I could eat whatever I wanted." The patient then said, "I don't need this and I don't have to be here," and proceeded to pull out his IV and get blood on his person and the floor. Security was called, the compressor house operator and charge nurses became present. The patient then became aggressive asking the application security specialist to come at him. An RT who came when security was called was able to get the patient back in the room and calm him down. A new gown was provided to the patient as well as a sandwich. At this time the patient is refusing an IV. He states he will get one later. Will retry at a later time, and continue to monitor.
--- NOTE | 2020-03-31 00:08 | NUR ---
Attempted to restart the patient's IV, the patient is still refusing. Explained to the patient the risks and benefits of not having an IV while in the hospital for emergency purposes as well as the need for fluids to keep his blood pressure within normal limits and for antibiotics. This RN reiterated to the patient that his blood pressure was low on dayshift and fluids helped his blood pressure go back to "normal." The patient verbalized understanding and stated, "You can do it later when you check my blood sugar at 04:00, I don't want it right now." Will continue to monitor.
--- NOTE | 2020-03-31 00:08 | NUR ---
Patient refused the midnight blood sugar check. Explained to the patient his trends of elevated blood sugars, the risks and benefits of not having his blood sugar checked and the benefits of having his blood sugar regulated. Patient verbalized understanding and stated, "I don't care, you aren't checking my blood sugar right now."
[2020-03-31] MEDS: SODIUM CHLORIDE 0.9% 1,000 ML IV SCH ×2 (02:14→16:31)
[2020-03-31] MEDS: ACCU-CHEK COMFORT CURVE STRIP VI SCH ×7 (04:50→23:32)
[2020-03-31] MEDS: InsuLIN REG 1unit/0.01ml Soln (100units/ml) SC SCH ×7 (04:50→23:32)
--- NOTE | 2020-03-31 04:51 | NUR ---
IV insertion IV access obtained, via clean sterile technique by inserting 24 gauge catheter at SAMANTHA after 2 attempt(s). IV secured properly. No trauma to site. Patient tolerated well.
--- NOTE | 2020-03-31 05:43 | NUR ---
PT refused V/S @0500, RN was notified.
[2020-03-31] MEDS: SALINE 0.65 % NASAL SPRAY 45ML BOTTLE EACHNOSTRI SCH ×4 (05:53→21:56)
[2020-03-31] MEDS: ALBUTEROL SULF 2.5 MG/0.5ML(0.5%) NEB SOLN NEB SCH ×5 (07:32→23:01)
--- NOTE | 2020-03-31 07:32 | NUR ---
PT. REFUSED MN. TX. AT THIS TIME, PT. ASKS IF HE COULD TAKE IT LATER. NO RESP. DISTRESS OR SOB NOTED. HR=96,RR=20, SP02= 97% ON RA. NO TX. GIVEN, WILL SEE PT. AT NEXT SCHEDULED TIME. Addendum: 03/31/20 at 0736 by Brook Dueñas RT Amended: Links added.
[2020-03-31 09:00] VITALS: BP 136/87
[2020-03-31] MEDS: ASPirin 81 mg TAB PO SCH (10:19)
[2020-03-31] MEDS: predniSONE 5 MG TAB PO SCH (10:19)
[2020-03-31] MEDS: FINASTERIDE 5 MG TAB PO SCH (10:20)
[2020-03-31] MEDS: GEMFIBROZIL 600 MG TAB PO SCH ×2 (10:20→21:54)
[2020-03-31] MEDS: MYCOPHENOLATE 1000mg/5ml ORALsusp 200mg/ml PO SCH ×2 (10:20→21:56)
[2020-03-31] MEDS: INSULIN LANTUS (GLARGINE) 1 /0.01ml (100units/ml) SC SCH ×2 (10:54→22:03)
--- NOTE | 2020-03-31 12:26 | NUR ---
Nutrition Consult Provided pt with diabetic information packet Est energy needs 4120-7164 (25-30 kcal/kg BW 62.9kg) Est protein needs 50-63g (0.8-1g/kg BW 62.9kg) WIll reassess prn. Addendum: 03/31/20 at [address] Amended: Links added.
[2020-03-31 13:00] VITALS: BP 129/69
[2020-03-31] MEDS: TACROLIMUS 1 MG CAP PO SCH ×2 (13:10→21:54)
--- NOTE | 2020-03-31 13:33 | NUR ---
PT. STILL REFUSING MN. TX.. NO RESP. DISTRESS NOTED. HR 88,RR 18,SP02 98% ON RA. PT. KNOWS TO CALL IF HE CHANGES HIS MIND. NO TX. GIVEN.
[2020-03-31] MEDS: HYDROcodone-ACET 5/325MG TAB PO PRN (14:32)
[2020-03-31 17:00] VITALS: BP 120/79
--- NOTE | 2020-03-31 18:31 | NUR ---
RT NOTE PT REFUSED TX AT THIS TIME. PT WASHING HIMSELF AT BEDSIDE. NO DISTRESS NOTED. PT DENIES ANY SOB. PT KNOWS TO HAVE RT PAGED IF NEEDED. RT WILL RETURN AT 2200 FOR NEXT SCHEDULED TX.
--- NOTE | 2020-03-31 20:10 | NUR ---
Opening Shift Note Assumed care of patient, awake and alert. No S/S of distress/SOB or pain. Instructed on POC and to call for assist PRN, will continue to monitor for changes Q1hr and PRN. bed in low position and call light within reach.
[2020-03-31] MEDS: ALPRAZolam 0.5 MG TAB PO PRN (20:38)
[2020-03-31] MEDS: cefTRIAXone 1GM/50ML D5W 50 ML IV SCH (20:48)
--- NOTE | 2020-03-31 20:56 | NUR ---
patient ambulating patient ambulating around room with steady gait.
[2020-03-31] MEDS: FAMOTIDINE 20 MG TAB PO SCH (21:55)
[2020-03-31] MEDS: ATORVASTATIN 20 MG TAB PO SCH (21:55)
[2020-03-31] MEDS: MONTELUKAST SODIUM 10 MG TAB PO SCH (21:55)
[2020-03-31 22:03] VITALS: BP 113/80
--- NOTE | 2020-03-31 23:01 | NUR ---
RT NOTE PT STATED HE DIDN'T THINK HE NEEDS THIS TX. PT DENIES ANY SOB, NO SIGNS OF RESP DISTRESS NOTED BY RT. PT KNOWS TO HAVE RT PAGED IF NEEDED. SPO2 100% ON RA.
[2020-04-01] MEDS: InsuLIN REG 1unit/0.01ml Soln (100units/ml) SC SCH ×5 (04:19→20:16)
[2020-04-01] MEDS: ACCU-CHEK COMFORT CURVE STRIP VI SCH ×5 (04:19→20:17)
[2020-04-01] MEDS: SODIUM CHLORIDE 0.9% 1,000 ML IV SCH ×2 (04:28→20:10)
[2020-04-01 04:35] VITALS: BP 123/75
[2020-04-01] MEDS ORDERED: SODIUM CHLORIDE 0.9 % NEB SOLN 3ML NEB ONE (05:29)
[2020-04-01] MEDS: SALINE 0.65 % NASAL SPRAY 45ML BOTTLE EACHNOSTRI SCH ×4 (05:36→22:35)
[2020-04-01] MEDS: ALBUTEROL SULF 2.5 MG/0.5ML(0.5%) NEB SOLN NEB SCH ×5 (05:59→22:51)
--- NOTE | 2020-04-01 06:58 | NUR ---
report given to dayshift rn patient denies sob distress or pain.
--- NOTE | 2020-04-01 07:20 | NUR ---
Opening Shift Note Assumed care of patient, who is alert and oriented x4. Respirations are even and unlabored. No S/S of distress/SOB or pain. Bed is low, locked with 2x side rails up. Call light is within reach. Instructed on POC and to call for assist PRN, will continue to monitor for changes Q1hr and PRN.
[2020-04-01 09:00] VITALS: BP 127/86
[2020-04-01] MEDS: TACROLIMUS 1 MG CAP PO SCH ×2 (09:26→22:35)
[2020-04-01] MEDS: ASPirin 81 mg TAB PO SCH (09:26)
[2020-04-01] MEDS: predniSONE 5 MG TAB PO SCH (09:27)
[2020-04-01] MEDS: FINASTERIDE 5 MG TAB PO SCH (09:27)
[2020-04-01] MEDS: MYCOPHENOLATE 1000mg/5ml ORALsusp 200mg/ml PO SCH ×2 (09:27→22:35)
[2020-04-01] MEDS: GEMFIBROZIL 600 MG TAB PO SCH ×2 (09:27→22:34)
[2020-04-01] MEDS: HYDROcodone-ACET 5/325MG TAB PO PRN (09:38)
[2020-04-01] MEDS: INSULIN LANTUS (GLARGINE) 1 /0.01ml (100units/ml) SC SCH ×2 (09:41→22:41)
[2020-04-01 11:53] VITALS: BP 128/82
[2020-04-01] MEDS: ALPRAZolam 0.5 MG TAB PO PRN (15:38)
[2020-04-01 16:53] VITALS: BP 112/78
[2020-04-01] MEDS: cefTRIAXone 1GM/50ML D5W 50 ML IV SCH (20:22)
[2020-04-01 20:41] VITALS: BP 112/78
[2020-04-01 22:00] VITALS: BP 106/70
[2020-04-01] MEDS: ATORVASTATIN 20 MG TAB PO SCH (22:34)
[2020-04-01] MEDS: FAMOTIDINE 20 MG TAB PO SCH (22:34)
[2020-04-01] MEDS: MONTELUKAST SODIUM 10 MG TAB PO SCH (22:35)
[2020-04-02] MEDS: InsuLIN REG 1unit/0.01ml Soln (100units/ml) SC SCH ×6 (00:01→20:40)
[2020-04-02] MEDS: ACCU-CHEK COMFORT CURVE STRIP VI SCH ×6 (00:02→20:21)
[2020-04-02 05:00] VITALS: BP 122/87
[2020-04-02] MEDS: SALINE 0.65 % NASAL SPRAY 45ML BOTTLE EACHNOSTRI SCH ×3 (06:00→22:00)
--- NOTE | 2020-04-02 07:10 | NUR ---
REPORT GIVEN TO DAYSHIFT RN PATIENT DENIES SOB DISTRESS OR PAIN
--- NOTE | 2020-04-02 07:10 | NUR ---
OPENING SHIFT NOTE Assumed care of patient from senior clinical data coordinator RN. Patient is alert and oriented x4, no signs of distress noted, patient denies pain. He was updated on the plan of care and verbalized understanding. Bed is locked, in the lowest position, side rails up x2 and call light is in reach. He was encouraged to call for assistance as needed.
[2020-04-02] MEDS: ALBUTEROL SULF 2.5 MG/0.5ML(0.5%) NEB SOLN NEB SCH ×5 (07:19→22:00)
[2020-04-02] MEDS: SODIUM CHLORIDE 0.9% 1,000 ML IV SCH ×2 (07:40→20:44)
[2020-04-02 09:00] VITALS: BP 98/52
[2020-04-02] MEDS: ASPirin 81 mg TAB PO SCH (09:43)
[2020-04-02] MEDS: FINASTERIDE 5 MG TAB PO SCH (09:44)
[2020-04-02] MEDS: GEMFIBROZIL 600 MG TAB PO SCH ×2 (09:44→22:04)
[2020-04-02] MEDS: TACROLIMUS 1 MG CAP PO SCH ×2 (09:44→22:15)
[2020-04-02] MEDS: MYCOPHENOLATE 1000mg/5ml ORALsusp 200mg/ml PO SCH ×2 (09:44→22:15)
[2020-04-02] MEDS: predniSONE 5 MG TAB PO SCH (09:44)
[2020-04-02] MEDS: INSULIN LANTUS (GLARGINE) 1 /0.01ml (100units/ml) SC SCH ×2 (09:46→22:16)
--- NOTE | 2020-04-02 10:11 | NUR ---
ADRIENNE AT BEDSIDE Updated on the patient's status, plan of care was discussed with the patient and he verbalized understanding. New orders to follow up with the social worker psychiatric about placement in the homeless group home after discharge.
--- NOTE | 2020-04-02 10:23 | NUR ---
SPOKE WITH FOOTWEAR SALES LEADER Spoke with Cinthia about patient placement in homeless custodial after discharge. Per Cinthia Schaefer has been assigned to the patient and will follow up with him today.
[2020-04-02] MEDS: HYDROcodone-ACET 5/325MG TAB PO PRN (12:21)
[2020-04-02 12:24] VITALS: BP 135/84
--- NOTE | 2020-04-02 14:12 | NUR ---
Respiratory note: SCHEDULED MEDNEB TX NOT GIVEN, PT WANTING TO MAKE A PHONE CALL AT THIS TIME. NO S/S OF DISTRESS.
[2020-04-02] MEDS: ALPRAZolam 0.5 MG TAB PO PRN (15:18)
--- NOTE | 2020-04-02 18:54 | NUR ---
AT BEDSIDE FOR [facility] TX. PT IMMEDIATELY REFUSED TXS FOR [facility] PT STATES IF HE NEEDS ONE HE WILL PAGE WILL CONTINUE TO MONITOR PT NEEDED. RT NAME AND PAGER ASSIGNMENT WRITTEN ON PTS ROOM BOARD. WILL NOTIFY SOPHIA RN OF PTS REFUSAL.
--- NOTE | 2020-04-02 19:30 | NUR ---
OPENING SHIFT NOTE PATIENT NOT IN ROOM. SECURITY PAGED TO LOCATE PATIENT. ACCORDING TO PROTECTION MANAGER THE PATIENT LEFT THE FIRST FLOOR. WAITING ON SECURITY FOR AN UPDATE.
--- NOTE | 2020-04-02 20:00 | NUR ---
PATIENT BACK ON UNIT SPOKE TO PATIENT ABOUT LEAVING UNIT. PATIENT SMELLED LIKE CIGARETTES. TOLD PATIENT IF HE PLANS TO LEAVE AND SMOKE HE WILL NEED TO SIGN AN AMA FORM. PATIENT AWARE AND AGREED TO SIGN. FORM IS IN CHART. PATIENT IS NOW SITTING IN BED W/ NO S/S OF DISTRESS OR SOB. PATIENT HAS NO COMPLAINTS OF PAIN. WILL CONTINUE TO MONITOR.
[2020-04-02] MEDS: cefTRIAXone 1GM/50ML D5W 50 ML IV SCH (20:44)
[2020-04-02 22:00] VITALS: BP 116/75
[2020-04-02] MEDS: FAMOTIDINE 20 MG TAB PO SCH (22:03)
[2020-04-02] MEDS: MONTELUKAST SODIUM 10 MG TAB PO SCH (22:03)
[2020-04-02] MEDS: ATORVASTATIN 20 MG TAB PO SCH (22:04)
[2020-04-03] MEDS: InsuLIN REG 1unit/0.01ml Soln (100units/ml) SC SCH ×3 (00:30→08:29)
[2020-04-03] MEDS: ACCU-CHEK COMFORT CURVE STRIP VI SCH ×3 (00:30→08:30)
--- NOTE | 2020-04-03 00:40 | NUR ---
LOW BLOOD GLUCOSE PATIENT BG IS 59. PATIENT ONLY SYMPTOM ARE JITTERY HANDS. NO OTHER SYMPTOMS. GAVE PATIENT 4 OZ. OF APPLE JUICE, 4 OZ. OF ORANGE JUICE AND 2 PACKS OF ROSA CRACKERS. STOOD WITH PATIENT UNTIL HE ATE AND DRANK HIS SNACK. PATIENT IS NOT IN DISTRESS. WILL RE-CHECK BLOOD SUGAR IN 30 MIN. Addendum: 04/03/20 at 0200 by ERIK MARS RN RN BLOOD GLUCOSE RE-CHECK: 77 PATIENT DOES NOT HAVE ANY JITTERY HANDS. PATIENT DRINKING ANOTHER JUICE AND RELAXING. WILL CONTINUE TO MONITOR.
[2020-04-03 05:00] VITALS: BP 116/76
[2020-04-03] MEDS: SALINE 0.65 % NASAL SPRAY 45ML BOTTLE EACHNOSTRI SCH (05:34)
[2020-04-03] MEDS: ALBUTEROL SULF 2.5 MG/0.5ML(0.5%) NEB SOLN NEB SCH (07:20)
--- NOTE | 2020-04-03 08:15 | NUR ---
Opening Shift Note Assumed care of patient, awake and alert upon entering the room. No S/S of distress/SOB or pain. Blood sugar taken, 262. 12 Units regular insulin given. Patient complains of pain 8/10 in his abdomen. Pease given at this time. Upon assessment a bag of contraband was discovered in the right sock of the patient. Educated the patient on hospital policy and that he could not be in possession of the substance while in the hospital. Patient verbalized his desire to leave stating he would "owe" someone money and could not put himself in that position. The patient was instructed on the risks of leaving AMA but declined to stay and an AMA form was signed. Patient vernalized his understanding of the risks involved. IV was D/C using sterile technique, no signs of trauma present and the patient tolerated the withdrawal well. Tele monitor was removed and returned.
[2020-04-03] MEDS: HYDROcodone-ACET 5/325MG TAB PO PRN (08:30)
--- NOTE | 2020-04-03 09:00 | NUR ---
POM and Pt Belongings from Security POM given back to patient as well as personal items from security given back to pt.
--- NOTE | 2020-04-03 09:18 | NUR ---
Patient off floor Patient was transported off the floor via wheelchair by staff with his personal belongings showing no signs of respiratory distress or pain.
--- NOTE | 2020-04-03 10:09 | NUR ---
Patient left AMA prior to assessment.
== END 2020-04-03 09:19 | disposition left against medical advice (07) | DRG 871 ==
LOC: EDBD 14:01 → ER 14:01 → TELE 14:02 → TELE-EAST 23:05 → TELE-WESTW 03-29 04:50
PROVIDERS: ADMIT Nurse Practitioner; ATTEND Family Medicine
DX: A41.59 Other Gram-negative sepsis (principal); E10.10 Type 1 diabetes mellitus with ketoacidosis without coma; E87.1 Hypo-osmolality and hyponatremia; Z94.83 Pancreas transplant status; E10.65 Type 1 diabetes mellitus with hyperglycemia; E87.6 Hypokalemia; F17.210 Nicotine dependence, cigarettes, uncomplicated; F12.929 Cannabis use, unspecified with intoxication, unspecified; F15.10 Other stimulant abuse, uncomplicated; I10 Essential (primary) hypertension; E78.00 Pure hypercholesterolemia, unspecified; F41.9 Anxiety disorder, unspecified; I25.10 Atherosclerotic heart disease of native coronary artery without angina pectoris; E10.69 Type 1 diabetes mellitus with other specified complication; E88.09 Other disorders of plasma-protein metabolism, not elsewhere classified; E78.5 Hyperlipidemia, unspecified; E10.40 Type 1 diabetes mellitus with diabetic neuropathy, unspecified; E10.21 Type 1 diabetes mellitus with diabetic nephropathy; B96.1 Klebsiella pneumoniae [K. pneumoniae] as the cause of diseases classified elsewhere; F32.9 Major depressive disorder, single episode, unspecified; K21.9 Gastro-esophageal reflux disease without esophagitis; Z20.828 Contact with and (suspected) exposure to other viral communicable diseases; Z03.818 Encounter for observation for suspected exposure to other biological agents ruled out; Z79.4 Long term (current) use of insulin; Z59.0 Homelessness; Z79.899 Other long term (current) drug therapy; Z83.3 Family history of diabetes mellitus; Z79.82 Long term (current) use of aspirin; Z79.01 Long term (current) use of anticoagulants; Z82.49 Family history of ischemic heart disease and other diseases of the circulatory system; Z80.0 Family history of malignant neoplasm of digestive organs; Z80.8 Family history of malignant neoplasm of other organs or systems; Z82.0 Family history of epilepsy and other diseases of the nervous system; Z71.41 Alcohol abuse counseling and surveillance of alcoholic; Z91.19 Patient's noncompliance with other medical treatment and regimen
CPT/HCPCS: 36415; 70450; 71045; 74176; 80053; 80307; 81001; 82150; 82550; 82728; 82962; 83036; 83690; 83735; 84484; 85025; 86141; 87040; 87077; 87186; 87426; 94640; G0378; J0696; J1815; J7507

== ENCOUNTER 2020-04-04 07:51 | Emergency (ER) | payer MEDICARE, MEDICAID ==
[~2020-04-04] VITALS: Ht 160 cm; Wt 59.0 kg
[~2020-04-04 07:51] MED LIST changes: -TACR0.5C3 PO
[2020-04-04 08:20] LABS: Hemoglobin 13.8 g/dL (13.5-17.5); White Blood Cell 8.8 10^3/uL (4.4-10.8)
[2020-04-04 08:22] LABS: Hematocrit 43.3 % (41.0-53.0); Mean Corpuscular Hemoglobin 25.3 pg (28.0-32.0); Mean Corpuscular Volume 79.2 fL (80.0-100.0); Platelet Count (auto) 445 10^3/uL (140-450); Red Blood Cells 5.47 10^6/uL (4.5-5.90); Red Cell Distribution Width 16.3 % (11.8-14.3)
[2020-04-04 08:28] LABS: Basophils % (manual) 0 (0.0-2.0); Blast Cells 0; Promyelocytes % 0; Reactive Lymphocytes 0
[2020-04-04 08:43] LABS: Albumin 3.1 g/dL (3.4-5.0); Calcium 8.9 mg/dL (8.5-10.1); Potassium 4.1 mmol/L (3.5-5.1)
[2020-04-04 08:47] LABS: BUN/Creatinine Ratio 16.9; Bilirubin, Total 0.2 mg/dL (0.2-1.0); Total Protein 7.8 g/dL (6.4-8.2)
[2020-04-04 10:48] LABS: Band Neutrophils % (manual) 2; Eosinophils % (manual) 3 (0-7); Lymphocytes % (manual) 30 (10.0-50.0); Metamyelocytes % 3; Monocytes % (manual) 9 (0-12); Myelocytes % 3
[2020-04-04] MEDS ORDERED: MILK OF MAGNESIA 30ML SUSP PO ONE ×2 (11:30→12:15)
[2020-04-04 12:30] LABS: Alcohol, Urine < 3.0 mg/dL (0-10); Amphetamine Screen, Urine NEGATIVE (NEGATIVE); Barbiturate Scree,Urine NEGATIVE (NEGATIVE); Benzodiazephine Screen, Urine NEGATIVE (NEGATIVE); Cannabinoid Screen, Urine NEGATIVE (NEGATIVE); Cocaine Screen, Urine NEGATIVE (NEGATIVE); Opiate Scree,Urine POSITIVE (NEGATIVE); Phencyclidine Screen, Urine NEGATIVE (NEGATIVE)
[2020-04-04 12:52] LABS: Urine Bacteria NONE SEEN /hpf (None Seen); Urine Blood TRACE /uL (Negative); Urine WBC 1 /hpf (0 - 3)
[2020-04-04 16:00] VITALS: BP 110/72
== END 2020-04-04 16:40 | disposition home or self-care (01) ==
LOC: ER 07:51
DX: R94.5 Abnormal results of liver function studies (principal); E46 Unspecified protein-calorie malnutrition; E11.43 Type 2 diabetes mellitus with diabetic autonomic (poly)neuropathy; K31.84 Gastroparesis; K21.9 Gastro-esophageal reflux disease without esophagitis; F17.210 Nicotine dependence, cigarettes, uncomplicated; Z79.899 Other long term (current) drug therapy; Z79.82 Long term (current) use of aspirin
CPT/HCPCS: 36415; 71046; 74176; 80053; 80307; 81001; 82150; 82962; 83690; 83735; 85007; 85027

== ENCOUNTER 2020-04-08 10:12 | Inpatient (IN) | payer MEDICARE, MEDICAID ==
[~2020-04-08] VITALS: Ht 170.2 cm; Wt 59.6 kg
[2020-04-08] MEDS ORDERED: ONDANSETRON HCL 4 MG/2 ML VIAL IV ONE (11:00)
[2020-04-08] MEDS ORDERED: InsuLIN REG 1unit/0.01ml Soln (100units/ml) IV ONE (11:00)
[2020-04-08] MEDS ORDERED: MORPHINE SULFATE 4 MG/ML SYR/VIAL IV ONE (11:00)
[2020-04-08 11:18] LABS: Basophils # (auto) 0.1 10 ^3/uL (0-0.2); Basophils % (auto) 0.6 % (0.0-2.0); Eosinophils # (auto) 0.1 10 ^3/uL (0-0.8); Eosinophils % (auto) 0.7 % (0.0-7.0); Hemoglobin 13.4 g/dL (13.5-17.5); Mean Corpuscular Hemoglobin 25.4 pg (28.0-32.0); White Blood Cell 8.3 10^3/uL (4.4-10.8)
[2020-04-08 11:21] LABS: Hematocrit 43.6 % (41.0-53.0); Lymphocytes # (auto) 1.2 10 ^3/uL (0.4-5.4); Mean Corpuscular Hgb Conc. 30.6 g/dL (32.0-36.0); Monocytes # (auto) 0.5 10 ^3/uL (0-1.3); Monocytes % (auto) 5.5 % (0.0-12.0); Neutrophils # (auto) 6.5 10 ^3/uL (1.6-8.6); Neutrophils % (auto) 79.2 % (37.0-80.0); Platelet Count (auto) 488 10^3/uL (140-450); Red Blood Cells 5.26 10^6/uL (4.5-5.90); Red Cell Distribution Width 16.1 % (11.8-14.3)
[2020-04-08] MEDS ORDERED: SODIUM CHLORIDE 0.9% 1,000 ML IV ONE ×2 (11:30→14:15)
[2020-04-08 11:37] LABS: Amylase 21 U/L (25-115); Lipase 115 U/L (73-393)
[2020-04-08 11:45] LABS: Albumin 3.4 g/dL (3.4-5.0); Bilirubin, Total 0.7 mg/dL (0.2-1.0); Calcium 8.7 mg/dL (8.5-10.1); Total Protein 7.5 g/dL (6.4-8.2)
[2020-04-08 11:47] LABS: Potassium 5.6 mmol/L (3.5-5.1)
[2020-04-08] MEDS ORDERED: SODIUM BICARBONATE 8.4 % INJ 50ML VIAL IV ONE (12:00)
[2020-04-08] MEDS ORDERED: CALCIUM GLUC 4.65meq/50ml D5AE 50 ML IV ONE (12:00)
[2020-04-08] MEDS ORDERED: DEXTROSE (50%) 50ML SYRG IV PRN ×2 (14:15→20:00)
[2020-04-08] MEDS ORDERED: NITROGLYCERIN 0.4 MG SL TAB SL PRN (14:15)
[2020-04-08] MEDS ORDERED: MORPHINE SULF INJ 2 MG/ML SYRINGE 1ML IV PRN (14:15)
[2020-04-08] MEDS ORDERED: InsuLIN R (HUMAN) 100 UNITS in SODIUM CHL 0.9% 99 ML IV SCH (14:15)
[2020-04-08 14:44] LABS: Magnesium 2.7 mg/dL (1.6-2.6)
[2020-04-08] MEDS: ACCU-CHEK COMFORT CURVE STRIP VI SCH ×6 (15:04→23:05)
[2020-04-08 15:28] LABS: Urine Bacteria FEW /hpf (None Seen); Urine Blood 1+ /uL (Negative); Urine Specific Gravity 1.014 (1.001-1.035); Urine WBC 1 /hpf (0 - 3)
[2020-04-08] MEDS: LACTATED RINGER'S 1,000 ML IV SCH ×2 (16:35→23:04)
[2020-04-08 18:32] LABS: Calcium 8.1 mg/dL (8.5-10.1); Potassium 4.5 mmol/L (3.5-5.1)
[2020-04-08] MEDS: InsuLIN REG 1unit/0.01ml Soln (100units/ml) SC SCH ×2 (20:00→23:07)
[2020-04-08] MEDS ORDERED: INSULIN LANTUS (GLARGINE) 1 /0.01ml (100units/ml) SC ONE (20:00)
[2020-04-08 22:20] VITALS: BP 92/52
--- NOTE | 2020-04-08 22:20 | NUR ---
PT ARRIVAL pt arrived via wheelchair. pt ambulated to hospital bed. pt place on 2Lnc
[2020-04-08 22:25] VITALS: BP 92/52
--- NOTE | 2020-04-08 23:17 | NUR ---
MRSA SWAB SENT TO LAB
[2020-04-09] MEDS: InsuLIN REG 1unit/0.01ml Soln (100units/ml) SC SCH ×5 (03:41→17:19)
[2020-04-09] MEDS: ACCU-CHEK COMFORT CURVE STRIP VI SCH ×5 (03:46→22:20)
[2020-04-09 05:00] VITALS: BP 111/74
[2020-04-09 07:19] LABS: Basophils # (auto) 0 10 ^3/uL (0-0.2); Basophils % (auto) 0.4 % (0.0-2.0); Eosinophils # (auto) 0.2 10 ^3/uL (0-0.8); Hemoglobin 11.8 g/dL (13.5-17.5); Lymphocytes # (auto) 1.6 10 ^3/uL (0.4-5.4); Mean Corpuscular Volume 78.3 fL (80.0-100.0)
[2020-04-09 07:21] LABS: Eosinophils % (auto) 1.8 % (0.0-7.0); Mean Corpuscular Hemoglobin 25.7 pg (28.0-32.0); Mean Corpuscular Hgb Conc. 32.9 g/dL (32.0-36.0); Monocytes # (auto) 0.5 10 ^3/uL (0-1.3); Monocytes % (auto) 5.7 % (0.0-12.0); Neutrophils # (auto) 7.2 10 ^3/uL (1.6-8.6); Neutrophils % (auto) 75.1 % (37.0-80.0); Platelet Count (auto) 468 10^3/uL (140-450); Red Cell Distribution Width 15.8 % (11.8-14.3); White Blood Cell 9.6 10^3/uL (4.4-10.8)
[2020-04-09 07:46] LABS: Albumin 2.5 g/dL (3.4-5.0); Calcium 7.9 mg/dL (8.5-10.1); Magnesium 2.3 mg/dL (1.6-2.6); Potassium 3.7 mmol/L (3.5-5.1)
[2020-04-09 07:51] LABS: BUN/Creatinine Ratio 15.4; Bilirubin, Total 0.2 mg/dL (0.2-1.0); Phosphorus 1.8 mg/dL (2.5-4.90); Total Protein 5.9 g/dL (6.4-8.2)
[2020-04-09 08:00] VITALS: BP 103/70
[2020-04-09] MEDS: LACTATED RINGER'S 1,000 ML IV SCH ×2 (08:02→13:56)
--- NOTE | 2020-04-09 08:30 | NUR ---
Patient refusing Patient blood sugar 164. Patient refused insulin, stating "leave me alone, I don't want you to give me anything". Educated patient on insulin, patient still declined. Patient refusing full assessment, patient stated, "I'm going to leave this hospital if you don't leave me alone". Educated patient on why we complete assessments each shift, per stated, "I'm just going to leave here anywhere". Informed patient he can sign an AMA form if he decides to leave.
[2020-04-09 09:45] VITALS: BP 103/70
--- NOTE | 2020-04-09 11:56 | NUR ---
Nutrition Assessment/Consult Notes Please refer to link for full assessment notes. Est Energy needs: 7681-6760 kcals (25-30 kcal/kgBW) Est Protein needs: 45-57 gms/day (0.8-1.0 gm/kgBW) Will continue to monitor and reassess prn. Addendum: 04/09/20 at [address] Amended: Links added.
--- NOTE | 2020-04-09 13:05 | NUR ---
Patient reporting abdominal pain 5/10. No order for pain medication at this time. Informed Dr Mauro of patients pain, no order for pain meds given. Order to start patient on clear liquid diet. Order carried out.
[2020-04-09] MEDS ORDERED: DEXTROSE (50%) 50ML SYRG IV PRN (13:45)
[2020-04-09] MEDS ORDERED: IPRATROPIUM BROM 0.5 MG/2.5ML INH SOL NEB PRN (13:45)
[2020-04-09] MEDS ORDERED: ALBUTEROL SULF 2.5 MG/0.5ML(0.5%) NEB SOLN NEB PRN (13:45)
[2020-04-09 14:00] VITALS: BP 105/67
--- NOTE | 2020-04-09 14:25 | NUR ---
Dr Davis bedside with patient discussing plan of care
[2020-04-09] MEDS ORDERED: SODIUM PHOSPHATES 40 MEQ in D5W 5% 250 ML IV ONE (14:30)
--- NOTE | 2020-04-09 15:40 | NUR ---
Informed Hospitalist, Dr Jones, of patients blood sugar of 536 and admitting diagnosis of DKA. Confirmed patient is already receiving 20 units Lantus HS. No further orders at this time. Addendum: 04/09/20 at 1818 by FILIPPO SAVAGE RN RN CORRECT TIME [id number]
[2020-04-09] MEDS ORDERED: INSUINJ18 SC (15:53)
[2020-04-09] MEDS ORDERED: SUCR1TAB PO (15:56)
--- NOTE | 2020-04-09 15:56 | NUR ---
Received fax from patient Pharmacy, [facility], with medications patient has obtained. Updated medication that was not listed on med rec
[2020-04-09 17:00] VITALS: BP 114/88
[2020-04-09] MEDS: METOCLOPRAMIDE HCL 10 MG TAB PO SCH (17:11)
[2020-04-09] MEDS: TAMSULOSIN HYDROCHLORIDE 0.4 MG CAP PO SCH ×2 (17:11→17:16)
--- NOTE | 2020-04-09 17:20 | NUR ---
Pagejaylyn Hospitalist, patients blood sugar 536. 15 units insulin given per sliding scale. Will await further orders
--- NOTE | 2020-04-09 18:40 | NUR ---
Blood sugar recheck Recheck of blood sugar is 482. Informed Dr Jones of repeat reading of 482. Order received to give [address] Jones, give the insulin now and no need to recheck until next scheduled accu check.
[2020-04-09] MEDS ORDERED: INSULIN LANTUS (GLARGINE) 1 /0.01ml (100units/ml) SC ONE (18:45)
--- NOTE | 2020-04-09 20:29 | NUR ---
pt transferred to 298B. endorsed care to ELEUTERIO Rene.
--- NOTE | 2020-04-09 20:30 | NUR ---
PATIENT TRANSFERRED FROM ROOM 238 VIA WHEELCHAIR WITH ALL PERSONAL BELONGINGS. PATIENT IS AWAKE AND ALERT X4, AMBULATORY INDEPENDENTLY. NO S/S OF DISTRESS NOTED ON ROOM AIR.
[2020-04-09] MEDS: ALPRAZolam 0.5 MG TAB PO PRN (21:14)
[2020-04-09 22:00] VITALS: BP 106/68
[2020-04-09] MEDS ORDERED: INSULIN LANTUS (GLARGINE) 1 /0.01ml (100units/ml) SC SCH (22:00)
[2020-04-09] MEDS: traZODone HCL 50 MG TAB PO SCH (22:11)
[2020-04-09] MEDS: TACROLIMUS 1 MG CAP PO SCH (22:11)
[2020-04-09] MEDS: ATORVASTATIN 20 MG TAB PO SCH (22:12)
[2020-04-09] MEDS: MYCOPHENOLATE 250 MG CAP PO SCH (22:12)
[2020-04-09] MEDS: PANTOPRAZOLE 40 MG TAB PO SCH (22:12)
--- NOTE | 2020-04-09 22:56 | NUR ---
HOSPITALIST RETURNS PAGE NOTIFIED SHANTEL SHELBY OF PATIENT'S CRITICAL BLOOD SUGAR LEVEL OF 442 AND ADMINISTRATION OF 20U LANTUS AND 10U REGULAR INSULIN PER PROTOCOL. NO NEW ORDERS RECEIVED. WILL CONTINUE TO MONITOR.
[2020-04-10] MEDS: LACTATED RINGER'S 1,000 ML IV SCH (03:05)
[2020-04-10 05:00] VITALS: BP 90/62
[2020-04-10] MEDS: METOCLOPRAMIDE HCL 10 MG TAB PO SCH ×3 (06:49→17:47)
[2020-04-10] MEDS: InsuLIN REG 1unit/0.01ml Soln (100units/ml) SC SCH ×4 (06:50→17:00)
[2020-04-10] MEDS: ACCU-CHEK COMFORT CURVE STRIP VI SCH ×4 (06:50→22:00)
--- NOTE | 2020-04-10 07:50 | NUR ---
RECEIVED PATIENT ALERT AND ORIENTED X4, NOT IN DISTRESS, CLEAR LS IN BILATERAL LUNG LOBES, RR=18 SAT=98%, DEEP BREATHING AND COUGHING WAS ENCOURAGED, DEMONSTRATED UNDERSTANDING, SR R=86 ON TELE MONITOR, DENIED CHEST PAIN AND SOB, ABDOMEN SOFT WITH ACTIVE BS, TOLERATED 100% OF BREAKFAST TRAY, SKIN INTACT WARM TO TOUCH, RADIAL AND PEDAL PULSES PALPABLE, CAP REFILL <3 SECONDS, DENIED PAIN, RESTING ON BED, HEAD OF BED ELEVATED, BED ON LOW POSITION, CALL LIGHT ON REACH, PENDING SS CONSULT, WILL CONTINUE MONITORING.
[2020-04-10 08:49] LABS: Basophils # (auto) 0 10 ^3/uL (0-0.2); Eosinophils # (auto) 0.1 10 ^3/uL (0-0.8); Hemoglobin 13.2 g/dL (13.5-17.5); Mean Corpuscular Volume 78.9 fL (80.0-100.0); Monocytes # (auto) 0.4 10 ^3/uL (0-1.3); Nucleated Red Blood Cells % 0.2 %
[2020-04-10 08:51] LABS: Basophils % (auto) 0.8 % (0.0-2.0); Eosinophils % (auto) 2.7 % (0.0-7.0); Hematocrit 41.3 % (41.0-53.0); Lymphocytes # (auto) 1.5 10 ^3/uL (0.4-5.4); Lymphocytes % (auto) 34.8 % (10.0-50.0); Mean Corpuscular Hemoglobin 25.3 pg (28.0-32.0); Monocytes % (auto) 8.7 % (0.0-12.0); Neutrophils # (auto) 2.3 10 ^3/uL (1.6-8.6); Platelet Count (auto) 466 10^3/uL (140-450); Red Blood Cells 5.23 10^6/uL (4.5-5.90); White Blood Cell 4.3 10^3/uL (4.4-10.8)
[2020-04-10 09:00] VITALS: BP 103/66
[2020-04-10 09:05] LABS: BUN/Creatinine Ratio 11.7; Calcium 8.6 mg/dL (8.5-10.1); Magnesium 2.6 mg/dL (1.6-2.6); Potassium 3.7 mmol/L (3.5-5.1)
[2020-04-10] MEDS: predniSONE 5 MG TAB PO SCH (10:11)
[2020-04-10] MEDS: PANTOPRAZOLE 40 MG TAB PO SCH ×2 (10:12→22:42)
[2020-04-10] MEDS: MYCOPHENOLATE 250 MG CAP PO SCH ×2 (11:20→22:50)
[2020-04-10] MEDS: SUCRALFATE 1 GM/10 ML ORAL SUSP PO SCH ×3 (11:25→22:43)
[2020-04-10 13:00] VITALS: BP 104/63
--- NOTE | 2020-04-10 13:00 | NUR ---
CONSENT FOR SMOKING WAS SIGNED, OUT OF THE UNIT FOR SMOKING AND CAME BACK, RESTING ON BED, NOT IN DISTRESS, DENIED PAIN, WILL CONTINUE MONITORING.
[2020-04-10] MEDS ORDERED: SODIUM PHOSPHATES 24 MEQ in SODIUM CHL 0.9% 100 ML IV ONE (13:30)
[2020-04-10] MEDS: SODIUM CHLORIDE 0.9% 1,000 ML IV SCH (15:47)
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
[2020-04-10 17:00] VITALS: BP 98/55
[2020-04-10] MEDS: TAMSULOSIN HYDROCHLORIDE 0.4 MG CAP PO SCH (17:47)
--- NOTE | 2020-04-10 19:25 | NUR ---
RESTING ON BED, NOT IN DISTRESS, REPORT WAS GIVEN TO THE TELETYPESETTER OPERATOR RN.
--- NOTE | 2020-04-10 20:34 | NUR ---
HOSPITALIST PAGED PATIENT REPORTING 9/10 ABDOMINAL PAIN. NO PAIN MEDICATION ORDERED AT THIS TIME.
[2020-04-10 22:00] VITALS: BP 119/75
[2020-04-10] MEDS ORDERED: INSULIN LANTUS (GLARGINE) 1 /0.01ml (100units/ml) SC SCH (22:00)
[2020-04-10] MEDS ORDERED: HYDROcodone-ACET 5/325MG TAB PO ONE (22:30)
--- NOTE | 2020-04-10 22:35 | NUR ---
PHARMACY CALL TO PHARMACY, NO ANSWER. PATIENT MEDICATIONS PROGRAF AND CELLCEPT NOT IN CASSETTE. NON-FORMULARY MEDICATIONS NOT AVAILABLE IN MED [facility].
[2020-04-10] MEDS: ATORVASTATIN 20 MG TAB PO SCH (22:42)
[2020-04-10] MEDS: traZODone HCL 50 MG TAB PO SCH (22:43)
[2020-04-10] MEDS: TACROLIMUS 1 MG CAP PO SCH (22:50)
[2020-04-11 05:00] VITALS: BP 111/71
[2020-04-11] MEDS: SODIUM CHLORIDE 0.9% 1,000 ML IV SCH ×2 (06:20→21:25)
[2020-04-11] MEDS: METOCLOPRAMIDE HCL 10 MG TAB PO SCH ×3 (06:21→17:22)
[2020-04-11] MEDS: InsuLIN REG 1unit/0.01ml Soln (100units/ml) SC SCH ×5 (06:21→21:57)
[2020-04-11] MEDS: SUCRALFATE 1 GM/10 ML ORAL SUSP PO SCH ×4 (06:21→21:40)
[2020-04-11] MEDS: ACCU-CHEK COMFORT CURVE STRIP VI SCH ×4 (06:49→21:58)
[2020-04-11] MEDS ORDERED: FLUMAZENIL 0.1 MG/ML INJ 10ML MDV IV ONE (07:43)
[2020-04-11] MEDS ORDERED: NALOXONE HCL 0.4 MG/ML VIAL ONE (07:43)
[2020-04-11] MEDS ORDERED: LIDOCAINE VISCOUS 2% 15ML UD ONE (07:43)
[2020-04-11] MEDS ORDERED: SODIUM CHLORIDE LOCK 0 ML ONE (07:43)
[2020-04-11] MEDS ORDERED: MIDAZOLAM HCL 5 MG/ML-1ML VIAL ONE (07:44)
[2020-04-11] MEDS ORDERED: fentaNYL CITRATE 100 MCG/2 ML VL ONE (07:44)
[2020-04-11] MEDS ORDERED: diphenhdrAMINE HCL 50 MG/1 ML VL ONE (07:44)
--- NOTE | 2020-04-11 07:45 | NUR ---
Received patient alert and orient x4, clear sounds in bilateral lung lobes, RR=16 sat=97%, deep breathing and coughing encouraged, demonstrated and verbalized understanding, no s/s of sob and chest pain, SR R=84 on tele monitor, abdomen soft with active BS, keep NPO as ordered, skin dry and intact, keep clean and dry, radial and pedal pulses palpable, resting on bed, head of bed elevated, bed on low position, rails up x2, call light on reach, refused lab blood draw, pending EGD, will continue monitoring.
[2020-04-11 09:00] VITALS: BP 110/71
--- NOTE | 2020-04-11 09:00 | NUR ---
REFUSED PRE EGD BLOOD DRAW, PRE OP CONTACTED FOE PENDING EGD FOLLOW UP AND TO NOTIFY BLOOD DRAW REFUSE, PRE OP AWARE AND WILL NOTIFY DR. GARDNER REPORTED.
[2020-04-11] MEDS: MYCOPHENOLATE 250 MG CAP PO SCH ×2 (10:00→21:38)
[2020-04-11 10:08] LABS: Magnesium 2.1 mg/dL (1.6-2.6); Phosphorus 1.6 mg/dL (2.5-4.90); Potassium 3.7 mmol/L (3.5-5.1)
[2020-04-11 10:10] LABS: INR 0.94 (0.9-1.15); Partial Thromboplastin Time 23.6 sec (23.0-31.2)
[2020-04-11] MEDS: predniSONE 5 MG TAB PO SCH (11:05)
[2020-04-11] MEDS: PANTOPRAZOLE 40 MG TAB PO SCH ×2 (11:05→21:40)
[2020-04-11 13:00] VITALS: BP 138/84
--- NOTE | 2020-04-11 14:00 | NUR ---
EGD POSTPONED FOR 04/12/20 AM REPORTED BY , LUNCH TRAY WAS PROVIDED, TOLERATED 100% + TURKEY SANDWICH REQUESTED, DIABETIC EDUCATION AND DIET MANAGEMENT WAS PROVIDED, VERBALIZED UNDERSTANDING, BUT NOT COMPLIANT, KEEP EATING SNACKS, WILL CONTINUE MONITORING.
--- NOTE | 2020-04-11 14:47 | NUR ---
Nutrition Followup Notes Wt: 58.1 kg Pt was with MD at bedside. per records pt to have EGd today. pt s currently NPO Est Energy needs: 1404-9275 kcals (25-30 kcal/kgBW), Est Protein needs: 45-57 gms/day (0.8-1.0 gm/kgBW). Will continue to monitor and reassess prn. LABS: GLU 135 H ALB 2.5 L GI: Pt has no BM reported per RN doc BS: 21 low risk. Refer to wound assessment report for full details. PES: ) Increased nutrient needs aeb pt is NPO r/t pt with no PO intake 2) Food and nutrition related knowledge deficit aeb pt dietary non-compliance, with DKA r/t current medical condition Comments: will continue to monitor NPO status, skin status. F/u high 2-3 days Rec: 1) Advance pt to oral CCHO 60g diet when medically feasible and as tolerated 2) Continue current plan of care
[2020-04-11 17:00] VITALS: BP 132/78
[2020-04-11] MEDS: TAMSULOSIN HYDROCHLORIDE 0.4 MG CAP PO SCH (17:22)
[2020-04-11] MEDS: ALPRAZolam 0.5 MG TAB PO PRN (17:25)
--- NOTE | 2020-04-11 17:30 | NUR ---
NOT IN DISTRESS, DENIED PAIN, AT 1715 C/O ANXIETY XANAX PO PRN WAS ADMINISTRATED, NONE COMPLIANT AND COMBATIVE, CONTINUE ASKING FOR SNACKS AND SANDWICHES.
--- NOTE | 2020-04-11 17:48 | NUR ---
BS L=HI, HOSPITALIST NOTIFIED, STAT BMP AND HOLS 15 UNIT PROTOCOL DOSE ORDERED, PATIENT IS NONE COMPLIANT REQUESTING FOR FOOD, LAB CONTACTED FOR STAT BMP FOLLOW UP, WAITING LAB TO DRAW BLOOD, WILL CONTINUE MONITORING
--- NOTE | 2020-04-11 17:50 | NUR ---
VS T=97.8 RR=20 SAT=98% P=78 AA=099/70, NOT IN DISTRESS, DENIED PAIN, WALKING AROUND THE UNIT, AT THIS MOMENT.
--- NOTE | 2020-04-11 18:03 | NUR ---
STAT BMP BLOOD DRAW WAS DONE, POST BLOOD DRAW INSULIN R 15 UNIT SQ WAS GIVEN ORDERED, PATIENT REFUSED STAYING ON BED AND WENT OUT OF THE ROOM AMBULATING AROUND THE UNIT, WILL CONTINUE MONITORING.
--- NOTE | 2020-04-11 18:40 | NUR ---
RECHECK POST 15 UNIT OF INSULIN R BS=HI, BMP BS L=600, HOSPITALIST PAGED AND WAITING FOR CALL BACK, PATIENT ANGLE SHEAR SET UP OPERATOR OTHER PATIENT'S DINER TRAY FROM THE CART AND EATING DINNER AT THIS MOMENT.
[2020-04-11] MEDS ORDERED: InsuLIN REG 1unit/0.01ml Soln (100units/ml) IV ONE (18:45)
[2020-04-11 18:52] LABS: Calcium 8.6 mg/dL (8.5-10.1); Potassium 4.7 mmol/L (3.5-5.1)
--- NOTE | 2020-04-11 18:57 | NUR ---
10 UNITS OF INSULIN R IV WAS ADMINISTERED ORDERED, BY HOSPITALIST, RESTING ON BED, NOT IN DISTRESS, DENIED PAIN, WILL CONTINUE MONITORING.
[2020-04-11 19:00] LABS: BUN/Creatinine Ratio 10.3
--- NOTE | 2020-04-11 19:29 | NUR ---
REFUSED FOLLOW UP BS ACCU CHEK, NOT IN DISTRESS, DENIED PAIN, OR ANY DISCOMFORT, RESTING ON BED, REPORT WAS GIVEN TO THE FARM IMPLEMENT MECHANIC RN.
--- NOTE | 2020-04-11 20:06 | NUR ---
Opening Shift Note Assumed care of patient from Max RN, patient awake and alert. Patient on room air, oxygen saturation 95%, No S/S of distress/SOB or pain. Bed locked in lowest position, side rails up X2, call light within reach. Instructed on POC and to call for assist PRN, will continue to monitor for changes Q1hr and PRN.
--- NOTE | 2020-04-11 21:00 | NUR ---
Called/paged Dr. Reina called. Waiting for call back. Continue care.
[2020-04-11] MEDS: ATORVASTATIN 20 MG TAB PO SCH (21:40)
[2020-04-11] MEDS: traZODone HCL 50 MG TAB PO SCH (21:40)
[2020-04-11] MEDS: TACROLIMUS 1 MG CAP PO SCH (21:42)
[2020-04-11] MEDS: INSULIN LANTUS (GLARGINE) 1 /0.01ml (100units/ml) SC SCH (21:57)
[2020-04-11 22:00] VITALS: BP 113/65
--- NOTE | 2020-04-11 22:59 | NUR ---
Patient states "If I cant have nothing to eat then I will leave this hospital" Educated on the importance on blood sugar management of current level 413. Will continue to monitor
--- NOTE | 2020-04-11 23:30 | NUR ---
MD Called/paged Hospitalist called regarding blood sugar 413 . Waiting for call back. Continue care.
--- NOTE | 2020-04-12 00:16 | NUR ---
returned call Dr. Reina returned call, updated on patient status and ordered to followed protocol for blood sugar >400, 10 units administered. Continue care.
[2020-04-12 05:00] VITALS: BP 116/74
[2020-04-12] MEDS: SUCRALFATE 1 GM/10 ML ORAL SUSP PO SCH ×5 (05:21→21:23)
[2020-04-12] MEDS: METOCLOPRAMIDE HCL 10 MG TAB PO SCH ×3 (05:22→17:14)
[2020-04-12] MEDS: InsuLIN REG 1unit/0.01ml Soln (100units/ml) SC SCH ×4 (05:22→21:49)
[2020-04-12] MEDS: ACCU-CHEK COMFORT CURVE STRIP VI SCH ×4 (05:22→21:50)
--- NOTE | 2020-04-12 07:36 | NUR ---
Endorsed care to Dagoberto MCCLELLAN. Patient asleep in bed, locked in lowest position, side rails up X2, call light within reach. No signs of SOB or distress.
[2020-04-12] MEDS ORDERED: LIDOCAINE VISCOUS 2% 15ML UD ONE (08:39)
[2020-04-12] MEDS ORDERED: SODIUM CHLORIDE LOCK 10 ML ONE (08:39)
[2020-04-12] MEDS ORDERED: diphenhdrAMINE HCL 50 MG/1 ML VL ONE (08:40)
[2020-04-12 08:47] VITALS: BP 108/62
[2020-04-12 09:54] LABS: BUN/Creatinine Ratio 15.1; Calcium 8.9 mg/dL (8.5-10.1); Potassium 3.6 mmol/L (3.5-5.1)
--- NOTE | 2020-04-12 10:23 | NUR ---
PATIENT BROUGHT DOWN TO PRE OP FOR EGD PER BED IN A STABLE CONDITION. REPORT GIVEN TO PRE OP RN IN PREOP.
[2020-04-12] MEDS: fentaNYL CITRATE 100 MCG/2 ML VL ONE ×2 (10:36→10:39)
[2020-04-12] MEDS: MIDAZOLAM HCL 5 MG/ML-1ML VIAL ONE ×2 (10:36→10:39)
--- NOTE | 2020-04-12 11:30 | NUR ---
Patient returned to his room s/p EGD. Patient noted to be sleeping but easily awakened when spoken to and patient voiced no c/o pain/ discomfort and he was in no distress. Report received from Desire MCCLELLAN from PACU by phone and at bedside. Will continue to monitor patient.
--- NOTE | 2020-04-12 11:35 | NUR ---
Tolerated sandwich, jello and apple juice well.
[2020-04-12] MEDS: predniSONE 5 MG TAB PO SCH (11:37)
[2020-04-12] MEDS: INSULIN LANTUS (GLARGINE) 1 /0.01ml (100units/ml) SC SCH ×2 (11:37→21:50)
[2020-04-12] MEDS: PANTOPRAZOLE 40 MG TAB PO SCH ×2 (11:38→21:23)
[2020-04-12] MEDS: MYCOPHENOLATE 250 MG CAP PO SCH ×2 (11:46→21:51)
[2020-04-12] MEDS ORDERED: PANT40TA2 PO (12:23)
[2020-04-12] MEDS ORDERED: INSUINJ18 SC (12:23)
--- NOTE | 2020-04-12 12:30 | NUR ---
Dr. Mauro was in to see patient and MD left order for patient discharge.
[2020-04-12 13:00] VITALS: BP 112/80
[2020-04-12] MEDS: SODIUM CHLORIDE 0.9% 1,000 ML IV SCH (15:30)
--- NOTE | 2020-04-12 16:20 | NUR ---
Talked to Cinthia GOODMAN about where patient is going as patient has order for discharge. SW stated that patient has a bed but can not go to residential until Thursday. They were still trying to find a place for him to go to at this time but no one is accepting patient at this time.
--- NOTE | 2020-04-12 16:25 | NUR ---
Talked to Dr. Mauro about patient not having a place to go to and that he can go to retirement on Thursday. stated that she can not keep patient in the hospital as he is medically cleared for discharge. She told me to ask Cinthia SW and storage battery charger on what can be done to discharge patient.
--- NOTE | 2020-04-12 16:30 | NUR ---
Talked to pinked edge sewing machine operator Meng about patient's case and he stated that we can not discharge patient if patient has no place to go to.
--- NOTE | 2020-04-12 16:35 | NUR ---
Dr. Mauro stated that she talked to Dr. Mijares and Dr. Mijares stated to keep patient in the hospital.
[2020-04-12 16:49] VITALS: BP 102/69
[2020-04-12] MEDS: TAMSULOSIN HYDROCHLORIDE 0.4 MG CAP PO SCH (17:29)
[2020-04-12] MEDS ORDERED: INSULIN LANTUS (GLARGINE) 1 /0.01ml (100units/ml) SC ONE (17:30)
--- NOTE | 2020-04-12 19:10 | NUR ---
Opening Shift Note Assumed care of patient from day shift Dagoberto RN. Patient awake and alert with no S/S of distress/SOB or pain. Bed locked in lowest position, side rails up X2, call light within reach. Instructed on POC and to call for assist PRN, will continue to monitor for changes Q1hr and PRN.
[2020-04-12] MEDS: ALPRAZolam 0.5 MG TAB PO PRN (19:44)
--- NOTE | 2020-04-12 19:44 | NUR ---
MEDICATIONS ADMINISTRATION PATIENT STATES "I AM VERY ANXIOUS RIGHT NOW" ADMINISTERED XANAX 1MG PO. PATIENT TOLERATED WELL
[2020-04-12] MEDS: traZODone HCL 50 MG TAB PO SCH (21:23)
[2020-04-12] MEDS: ATORVASTATIN 20 MG TAB PO SCH (21:23)
[2020-04-12] MEDS: TACROLIMUS 1 MG CAP PO SCH (21:51)
[2020-04-12 22:00] VITALS: BP 121/81
--- NOTE | 2020-04-13 00:19 | NUR ---
BOWEL MOMENT HEART RATE 150, PATIENT IS IN THE REST ROOM. PATIENT STATES "I FINALLY WENT POOP AFTER 1 WEEK". HEART RATE BACK TO BASELINE OF 100. PATIENT IN BED RESTING, NO SIGNS OF DISTRESS.
[2020-04-13 05:00] VITALS: BP 100/67
[2020-04-13] MEDS: METOCLOPRAMIDE HCL 10 MG TAB PO SCH ×2 (05:52→11:30)
[2020-04-13] MEDS: SUCRALFATE 1 GM/10 ML ORAL SUSP PO SCH ×2 (05:52→11:30)
[2020-04-13] MEDS: InsuLIN REG 1unit/0.01ml Soln (100units/ml) SC SCH ×2 (05:56→11:43)
[2020-04-13] MEDS: ACCU-CHEK COMFORT CURVE STRIP VI SCH ×2 (05:57→11:40)
--- NOTE | 2020-04-13 07:10 | NUR ---
CLOSING NOTE CARE ENDORSED TO JULIANNA MCCLELLAN. PATIENT RESTING IN BED LOCKED IN LOWEST POSITION, SIDE RAILS UP X2, CALL LIGHT WITHIN REACH. NO SIGNS OF SOB OR DISTRESS.
[2020-04-13] MEDS: SODIUM CHLORIDE 0.9% 1,000 ML IV SCH (08:10)
[2020-04-13 08:58] VITALS: BP 116/84
--- NOTE | 2020-04-13 09:00 | NUR ---
PATIENT STATED THAT HE HAS A FRIEND IN [place] WHERE HE CAN STAY BUT HAS NO MEANS OF TRANSPORTATION AT THIS TIME AND SW AWARE OF THE AND WORKING ON IT. PATIENT ALSO PHONING PEOPLE WHO MIGHT BE ABLE TO TAKE HIM TO [place] TODAY.
[2020-04-13 09:24] VITALS: BP 116/84
--- NOTE | 2020-04-13 10:00 | NUR ---
BS [address] ZAMAN PATIENT HAS SCHEDULED LANTUS AT THIS TIME. MD STATED TO HOLD IT. SAME WAS NOTED TO BE DISCONTINUED BY MD AFTER.
[2020-04-13] MEDS: PANTOPRAZOLE 40 MG TAB PO SCH (10:30)
[2020-04-13] MEDS: predniSONE 5 MG TAB PO SCH (10:30)
[2020-04-13] MEDS: MYCOPHENOLATE 250 MG CAP PO SCH (10:30)
[2020-04-13 12:25] VITALS: BP 121/68
--- NOTE | 2020-04-13 15:50 | NUR ---
Discharge instructions given as ordered. Encourage to follow up with PMD as instructed. All questions and concerns addressed. Patient verbalized understanding. Medication reconciliation form completed and copy given to patient. Prescribed medications and supplies filled by [facility] and given to patient. IV removed with catheter intact, pressure dressing applied. Telemetry unit returned to ICU. Patient taken to taxi via wheelchair with all personal belongings, accompanied by staff and helper/driver. No distress noted at time of departure.
--- NOTE | 2020-04-13 16:11 | NUR ---
re-assessment Patient is unable to go to homeless [facility] until Thursday between the hours of 8am and 2pm. Patient has found a friend who he can live with. Ely LEONARD has contacted friend and verified that patient can be discharged to his house. Patient will need a taxi voucher to [place]. Per Trang Kumar she has authorized taxi ride to [place]. Patient will be going to [address] [facility], [place] [address]. Patient has been given a sack lunch and has been provided with shoes and clothes. Patient verbalized understanding and agreed to discharge plan home with friend. Addendum: 04/14/20 at 1315 by Cinthia OAKES Amended: Links added.
[2020-04-13] MEDS ORDERED: INSULIN 70/30 1unit/0.01ml Susp (100units/ml) SC SCH (22:00)
== END 2020-04-13 15:50 | disposition home or self-care (01) | DRG 637 ==
LOC: EDBD 10:12 → ER 10:12 → OVERFLOW 10:13 → TELE-EAST 22:20 → TELE-WESTW 04-09 20:30
PROVIDERS: ADMIT Nurse Practitioner Acute Care; ATTEND Internal Medicine
PROC: 0DB68ZX Excision of Stomach, Via Natural or Artificial Opening Endoscopic, Diagnostic (ICD-10-PCS; principal; 2020-04-12 10:34)
DX: E11.10 Type 2 diabetes mellitus with ketoacidosis without coma (principal); N17.0 Acute kidney failure with tubular necrosis; Z94.83 Pancreas transplant status; K29.70 Gastritis, unspecified, without bleeding; E78.5 Hyperlipidemia, unspecified; E87.6 Hypokalemia; I10 Essential (primary) hypertension; E87.5 Hyperkalemia; F10.10 Alcohol abuse, uncomplicated; F32.9 Major depressive disorder, single episode, unspecified; F19.10 Other psychoactive substance abuse, uncomplicated; K31.84 Gastroparesis; I25.10 Atherosclerotic heart disease of native coronary artery without angina pectoris; N40.0 Benign prostatic hyperplasia without lower urinary tract symptoms; F17.210 Nicotine dependence, cigarettes, uncomplicated; Z20.828 Contact with and (suspected) exposure to other viral communicable diseases; F41.9 Anxiety disorder, unspecified; Z79.4 Long term (current) use of insulin; Z59.0 Homelessness; Z79.82 Long term (current) use of aspirin; Z79.899 Other long term (current) drug therapy; Z71.41 Alcohol abuse counseling and surveillance of alcoholic; Z80.0 Family history of malignant neoplasm of digestive organs; Z80.8 Family history of malignant neoplasm of other organs or systems; Z82.49 Family history of ischemic heart disease and other diseases of the circulatory system; Z82.79 Family history of other congenital malformations, deformations and chromosomal abnormalities; Z83.3 Family history of diabetes mellitus; Z91.19 Patient's noncompliance with other medical treatment and regimen
CPT/HCPCS: 36415; 36600; 71045; 74176; 80048; 80053; 81001; 82010; 82150; 82805; 82962; 83690; 83735; 83930; 84100; 84132; 85025; 85610; 85730; 86850; 86900; 86901; 87081; 87426; 93005; 96361; 96365; 96366; 96375; 99291; G0378; J0610; J1815; J2250; J2405; J7060; J7507; J7517